=== PATIENT | male | born 1950 | race Caucasian/White ===

== ENCOUNTER 2019-03-03 17:31 | Inpatient (IN) | payer OTHER, MEDICARE ==
--- OUTSIDE RECORDS SUMMARY | 2019-03-03 17:33 | XMS REPORT | Clinical Summary ---
:1950 Author Organization [facility] Address [address] [place] [address] Care Team Providers Name Role Phone Adrian Groves MD Primary Care Provider Allergies Active Allergy Reactions Severity Noted Date Comments Codeine Rash Low 06/22/2016 Morphine Other (See Comments) 06/22/2016 hallucination Medications Medication Sig Dispensed Refills Start Date End Date Status multivitamin (THERAGRAN) Take 1 tablet by 0 Active tablet mouth daily. fluticasone-salmeterol Inhale 1 puff 2 0 Active (ADVAIR) 250-50 mcg/dose (two) times a DISKUS day. albuterol (PROVENTIL Inhale 2 puffs 4 0 Active HFA;VENTOLIN HFA) 90 (four) times a mcg/actuation inhaler day. As needed tiotropium (SPIRIVA) 18 Place 1 capsule 0 Active mcg per inhalation into inhaler and capsule inhale once daily. aspirin (ECOTRIN) 81 MG Take 81 mg by 0 Active enteric coated tablet mouth every other day. esomeprazole (NexIUM) 40 Take 40 mg by 0 Active MG capsule mouth daily before breakfast. metoprolol tartrate Take 100 mg by 0 Active (LOPRESSOR) 100 MG mouth daily. tablet atorvastatin (LIPITOR) Take 20 mg by 0 Active 20 MG tablet mouth nightly. amlodipine-benazepril Take 1 capsule 0 Active (LOTREL) 10-40 mg per by mouth daily. capsule allopurinol (ZYLOPRIM) Take 100 mg by 0 Active 100 MG tablet mouth daily. cyanocobalamin 1000 MCG Take 1,000 mcg 0 Active tablet by mouth daily. senna (SENOKOT) 8.6 mg Take 1 tablet by 0 Active tablet mouth daily. Active Problems Not on file Family History Medical History Relation Name Comments Heart disease Father Relation Name Status Comments Father Social History Tobacco Use Types Packs/Day Years Used Date Current Some Day Smoker Alcohol Use Drinks/Week oz/Week Comments No Sex Assigned at Date Recorded Not on file Job Start Date Occupation Industry Not on file Not on file Not on file Travel History Travel Start Travel End No recent travel history available. Last Filed Vital Signs Not on file Plan of Treatment Health Maintenance Due Date Last Done Comments COLON CANCER SCREENING 1998 SHINGLES VACCINES (#1) 1998 65+ PNEUMOCOCCAL VACCINE (1 of 2 - PCV13) 2013 PNEUMOCOCCAL POLYSACCHARIDE VACCINE AGE 65 AND OVER 2013 INFLUENZA VACCINE 05/23/2019 Results Not on fileafter 03/02/2018 Insurance Payer Benefit Plan / Group Subscriber ID Type Phone Address AARP AARP SUPPLEMENT xxxxxxxxxxx Commercial MEDICARE MEDICARE PART A AND B xxxxxxxxxx Medicare [place], [place] Advance Directives Patient has advance care planning documents on file. For more information, please contact:Reed [address] [place] [address]
[2019-03-03] MEDS ORDERED: IPRATROPIUM BROM 0.5MG/2.5ML ONE ×2 (18:06→18:09)
[2019-03-03] MEDS ORDERED: LEVALBUTEROL 1.25 MG/3 ML NEB ONE ×2 (18:06→18:09)
[2019-03-03] MEDS ORDERED: Levofloxacin500mg IV 500 MG/100 ML BAG IV ONE (18:09)
[2019-03-03] MEDS ORDERED: DEXAMETHASONE 10 MG/ML VIAL ONE (18:09)
[2019-03-03] MEDS ORDERED: METHYLPREDNISOLONE 125 MG INJ ONE (18:09)
[2019-03-03] MEDS ORDERED: NA CHLORIDE 0.9% 500 ML ONE (18:10)
[2019-03-03 18:11] LABS: Arterial Blood Carboxyhemoglob 2.1 % (0-1.5); Blood Gas Oxyhemoglobin 94.3 % (94-97)
[2019-03-03 18:24] LABS: Absolute Lymphocytes (CBC) 0.9 K/uL (0.7-4.9); Absolute Monocytes 1.2 K/uL (0.1-1.3); Absolute Neutrophil 21.3 K/uL (1.8-8.0); Basophils % 0.5 % (0-1.3); Eosinophils % 0.9 % (0-4.4); Hematocrit 46.5 % (39.6-49.0); Lymphocytes % 3.6 % (15.3-44.8); MPV 9.5 fL (7.6-11.3); Monocytes % 4.9 % (3.3-12.3); RBC Red Blood Cell Count 4.81 M/uL (4.33-5.43)
--- NOTE | 2019-03-03 18:43 | RAD REPORT ---
EXAM DESCRIPTION: [facility] Single View03/03/2019 6:05 pm CLINICAL HISTORY: sob COMPARISON: 2009 FINDINGS: Approximately 5 centimeter left apical lung opacity. Right suprahilar region mildly prominent. Heart is normal size Lungs are hyperaerated. Small radiopaque structures overlie the left chest IMPRESSION: Left apical lung opacity may represent neoplasm. Mild right suprahilar opacity may represent confluence of pulmonary vessels or infiltrate CT chest recommended
[2019-03-03 18:44] LABS: ALT/SGPT 33 U/L (12-78); AST/SGOT 21 U/L (15-37); Albumin 4.2 g/dL (3.4-5.0); Alkaline Phosphatase 82 U/L (45-117); BUN Blood Urea Nitrogen 9 mg/dL (7-18); Bicarbonate 27 mmol/L (21-32); Bilirubin Direct 0.2 mg/dL (0-0.2); Bilirubin Total 0.7 mg/dL (0.2-1.0); Glucose Level 125 mg/dL (74-106); Lipase 117 U/L (73-393); Magnesium 1.8 mg/dL (1.8-2.4); NT PRO-BNP 176 pg/mL (<125); Potassium 3.4 mmol/L (3.5-5.1); Protein, Total 8.1 g/dL (6.4-8.2); Sodium Level 134 mmol/L (136-145); Troponin (Emerg Dept Use Only) < 0.02 ng/mL (0.0-0.045)
[2019-03-03] MEDS ORDERED: CEFTRIAXONE/SWI 1gm 1 GM/10 ML SYR ONE (19:18)
--- NOTE | 2019-03-03 19:22 | ER ---
Nurse's Notes [facility] Name: Maximiliano Robison Age: 68 yrs Sex: Male : 1950 Arrival Date: 03/03/2019 Time: 17:32 Bed 3 Private MD: Chun Paulino K; Yung Allen V Diagnosis: Dyspnea;Chronic obstructive pulmonary disease with (acute) exacerbation;Tobacco abuse counseling;Tobacco use;Hypoxemia;Pneumonia due to other specified bacteria;Hypokalemia;Elevated white blood cell count Presentation: 03/03 17:43 Presenting complaint: Patient states: SOB and difficulty breathing that started today. aj Patient reports no relief with home O2. Transition of care: patient was not received from another setting of care. Onset of symptoms was March 03, 2019. Risk Assessment: Do you want to hurt yourself or someone else? Patient reports no desire to harm self or others. Initial Sepsis Screen: Does the patient meet any 2 criteria? RR > 20 per min. HR > 90 bpm. Yes Does the patient have a suspected source of infection? No. Patient's initial sepsis screen is negative. Care prior to arrival: None. 17:43 Method Of Arrival: Ambulatory aj 17:43 Acuity: STEPHANIA 2 aj Triage Assessment: 17:44 General: Appears in no apparent distress. uncomfortable, Behavior is anxious. Pain: aj Denies pain. Neuro: Level of Consciousness is awake, alert, obeys commands, Oriented to person, place, time, situation, Appropriate for age. Respiratory: Reports shortness of breath air hunger labored breathing Airway is patent Respiratory effort is labored, with nasal flaring, pursed lip, with retractions, Respiratory pattern is tachypnea Onset: The symptoms/episode began/occurred suddenly, the patient has severe shortness of breath. Derm: Skin is intact, is healthy with good turgor, Skin is pink, warm \T\ dry. normal. Historical: - Allergies: 17:44 Codeine; aj 17:44 Morphine; aj - PMHx: 17:44 Hyperlipidemia; Hypertension; COPD; aj 17:48 Cancer Prostate and colon; aj - Immunization history:: Adult Immunizations up to date. - Social history:: Smoking status: Patient uses tobacco products, smokes one-half pack cigarettes per day. - Ebola Screening: : Patient negative for fever greater than or equal to 101.5 degrees Fahrenheit, and additional compatible Ebola Virus Disease symptoms Patient denies exposure to infectious person Patient denies travel to an Ebola-affected area in the 21 days before illness onset No symptoms or risks identified at this time. - Family history:: not pertinent. Screenin:12 Abuse screen: Denies threats or abuse. Denies injuries from another. Nutritional mg2 screening: No deficits noted. Tuberculosis screening: No symptoms or risk factors identified. Fall Risk IV access (20 points). Assessment: 18:13 General: Appears in no apparent distress. comfortable, Behavior is calm, cooperative. mg2 Pain: Denies pain. Neuro: Level of Consciousness is awake, alert, obeys commands, Oriented to person, place, time, situation. Cardiovascular: Rhythm is. Respiratory: Airway is patent Respiratory effort is even, labored, Respiratory pattern is regular, symmetrical, Breath sounds with wheezes in left posterior lower lobe. GI: No signs and/or symptoms were reported involving the gastrointestinal system. : No signs and/or symptoms were reported regarding the genitourinary system. EENT: No signs and/or symptoms were reported regarding the EENT system. Derm: Skin is intact, is healthy with good turgor, Skin is pink, warm \T\ dry. normal. Musculoskeletal: Circulation, motion, and sensation intact. Capillary refill < 3 seconds. 19:53 Reassessment: BIPAP discontinued and started on Venturi mask. Patient states feeling jd3 better. Vital Signs: 17:44 BP 166 / 93; Pulse 120; Resp 50; Temp 98.6; Pulse Ox 83% on 2 lpm NC; Weight 104.33 kg; aj Height 5 ft. 10 in. (177.80 cm); 17:47 Pulse Ox 96% on 3.5 lpm NC; aj 19:30 BP 142 / 82; Pulse 115; Resp 40; Temp 98.5; Pulse Ox 96% on BiPAP; jd3 20:10 Pulse 112; Resp 28; Temp 98.8; Pulse Ox 96% on 50% Venturi mask; Pain 0/10; jd3 17:44 Body Mass Index 33.00 (104.33 kg, 177.80 cm) aj 17:44 Patient arrived on oxygen concentrator 2 LPM ED Course: 17:32 Patient arrived in ED. as 17:35 Yung Allen MD is Private Physician. as 17:35 Bar Paulino MD is Private Physician. as 17:35 Chun Paulino MD is Private Physician. as 17:37 Huan Morgan MD is Attending Physician. rachel 17:44 Triage completed. aj 17:47 Arm band placed on left wrist. Patient placed in an exam room, on a stretcher, on aj oxygen, on athletic monitor, on pulse oximetry. 17:59 Landen Monroy RN is Primary Nurse. mg2 18:05 XRAY Chest (1 view) In Process Unspecified. EDMS 18:11 No provider procedures requiring assistance completed. Inserted saline lock: 20 gauge mg2 in left wrist, using aseptic technique. Blood collected. 18:14 Patient has correct armband on for positive identification. athletic monitor on. Pulse mg2 ox on. NIBP on. Door closed. Warm blanket given. Pillow given. 18:40 Notified ED physician of a critical lab result(s). WBC 23.6. la1 19:19 Yung Allen MD is Hospitalizing Provider. rachel 19:56 CT completed. Patient tolerated procedure well. Patient moved to CT. Patient moved back mw3 from CT. 20:26 Patient admitted, IV remains in place. jd3 Administered Medications: 17:59 Drug: Xopenex 3.75 mg Route: Inhalation; mg2 20:20 Follow up: Response: No adverse reaction; Marked relief of symptoms jd3 17:59 Drug: AtroVENT Aerosol 0.5 mg Route: Inhalation; mg2 20:20 Follow up: Response: No adverse reaction; Marked relief of symptoms jd3 18:09 Drug: levofloxacin 500 mg Volume: 100 ml; Route: IVPB; Infused Over: 60 mins; Site: mg2 left wrist; 20:21 Follow up: Response: No adverse reaction; Marked relief of symptoms; IV Status: jd3 Completed infusion 18:10 Drug: NS 0.9% 500 ml Route: IV; Rate: bolus; Site: left wrist; mg2 20:21 Follow up: Response: No adverse reaction; IV Status: Completed infusion jd3 18:10 Drug: SOLU-Medrol 125 mg Route: IVP; Site: left wrist; mg2 19:03 Follow up: Response: No adverse reaction bp 18:10 Drug: Decadron - Dexamethasone 10 mg Route: IVP; Site: left wrist; mg2 19:03 Follow up: Response: No adverse reaction bp 19:10 Drug: Rocephin - (cefTRIAXone) 1 grams Route: IVPB; Infused Over: 30 mins; Site: left mg2 wrist; 20:19 Follow up: Response: No adverse reaction; IV Status: Completed infusion jd3 19:52 Drug: NS 0.9% with KCl 20 mEq/L 1000 ml Route: IV; Rate: 125 ml/hr; Site: left wrist; mg2 20:18 Follow up: Response: No adverse reaction; IV Status: Infusion continued upon admission jd3 19:53 Drug: Lovenox 90 mg Route: Sub-Q; Site: left lower abdomen; mg2 20:19 Follow up: Response: No adverse reaction jd3 19:53 Drug: Potassium Effervescent Tablet 25 mEq Route: PO; mg2 20:16 Follow up: Response: No adverse reaction jd3 Outcome: 19:21 Decision to Hospitalize by Provider. rachel 20:26 Admitted to Tele accompanied by tech, via stretcher, room 424, with oxygen, with chart, jd3 Report called to CHIDI Carrasquillo 20:26 Condition: stable 20:26 Instructed on the need for admit, Demonstrated understanding of instructions. 20:48 Patient left the ED. jd3 Signatures: Dispatcher [employer] EDMS Neetu Denney RN RN aj Anderson, Corey, MD MD cha Martinez, Amelia as Attema, Lee, RN RN Jose Sharpe RN RN jRhett Aceves RN RN bp Gardose, Michele, RN RN mg2 Tiarra Sanders mw3 Corrections: (The following items were deleted from the chart) 20:48 19:53 Reassessment: Patient states feeling better. mg2 jd3
--- NOTE | 2019-03-03 19:22 | EDPHYS ---
Physician Documentation [facility] Name: Maximiliano Robison Age: 68 yrs Sex: Male : 1950 Arrival Date: 03/03/2019 Time: 17:32 Bed 3 Private MD: Chun Paulino K; Yung Allen V ED Physician Huan Morgan HPI: 03/03 17:50 This 68 yrs old Male presents to ER via Ambulatory with complaints of rachel Shortness Of Breath. 17:50 The patient has shortness of breath at rest, with light activity. Onset: The rachel symptoms/episode began/occurred 1 day(s) ago. Duration: The symptoms are continuous, and are steadily getting worse. The patient's shortness of breath has no apparent modifying factors. Associated signs and symptoms: The patient has no apparent associated signs or symptoms. Severity of symptoms: At their worst the symptoms were mild moderate in the emergency department the symptoms are unchanged. The patient has experienced similar episodes in the past, multiple times. Historical: - Allergies: 17:44 Codeine; aj 17:44 Morphine; aj - PMHx: 17:44 Hyperlipidemia; Hypertension; COPD; aj 17:48 Cancer Prostate and colon; aj - Immunization history:: Adult Immunizations up to date. - Social history:: Smoking status: Patient uses tobacco products, smokes one-half pack cigarettes per day. - Ebola Screening: : Patient negative for fever greater than or equal to 101.5 degrees Fahrenheit, and additional compatible Ebola Virus Disease symptoms Patient denies exposure to infectious person Patient denies travel to an Ebola-affected area in the 21 days before illness onset No symptoms or risks identified at this time. - Family history:: not pertinent. ROS: 17:50 Constitutional: Negative for fever, chills, and weight loss, Eyes: Negative for injury, rachel pain, redness, and discharge, ENT: Negative for injury, pain, and discharge, Neck: Negative for injury, pain, and swelling, Cardiovascular: Negative for chest pain, palpitations, and edema, Abdomen/GI: Negative for abdominal pain, nausea, vomiting, diarrhea, and constipation, Back: Negative for injury and pain, : Negative for injury, bleeding, discharge, and swelling, MS/Extremity: Negative for injury and deformity, Skin: Negative for injury, rash, and discoloration, Neuro: Negative for headache, weakness, numbness, tingling, and seizure, Psych: Negative for depression, anxiety, suicide ideation, homicidal ideation, and hallucinations, Allergy/Immunology: Negative for hives, rash, and allergies, Endocrine: Negative for neck swelling, polydipsia, polyuria, polyphagia, and marked weight changes, Hematologic/Lymphatic: Negative for swollen nodes, abnormal bleeding, and unusual bruising. 17:50 Respiratory: Positive for cough, shortness of breath, wheezing, expiratory, of the left posterior lower lobe. Exam: 17:50 Constitutional: This is a well developed, well nourished patient who is awake, alert, rachel and in no acute distress. Head/Face: Normocephalic, atraumatic. Eyes: Pupils equal round and reactive to light, extra-ocular motions intact. Lids and lashes normal. Conjunctiva and sclera are non-icteric and not injected. Cornea within normal limits. Periorbital areas with no swelling, redness, or edema. ENT: Nares patent. No nasal discharge, no septal abnormalities noted. Tympanic membranes are normal and external auditory canals are clear. Oropharynx with no redness, swelling, or masses, exudates, or evidence of obstruction, uvula midline. Mucous membranes moist. Neck: Trachea midline, no thyromegaly or masses palpated, and no cervical lymphadenopathy. Supple, full range of motion without nuchal rigidity, or vertebral point tenderness. No Meningismus. Chest/axilla: Normal chest wall appearance and motion. Nontender with no deformity. No lesions are appreciated. Abdomen/GI: Soft, non-tender, with normal bowel sounds. No distension or tympany. No guarding or rebound. No evidence of tenderness throughout. Back: No spinal tenderness. No costovertebral tenderness. Full range of motion. Male : Normal genitalia with no discharge or lesions. Skin: Warm, dry with normal turgor. Normal color with no rashes, no lesions, and no evidence of cellulitis. MS/ Extremity: Pulses equal, no cyanosis. Neurovascular intact. Full, normal range of motion. Neuro: Awake and alert, GCS 15, oriented to person, place, time, and situation. Cranial nerves II-XII grossly intact. Motor strength 5/5 in all extremities. Sensory grossly intact. Cerebellar exam normal. Normal gait. Psych: Awake, alert, with orientation to person, place and time. Behavior, mood, and affect are within normal limits. 17:50 Cardiovascular: Rate: tachycardic, Rhythm: regular, Pulses: Pulses are 4+ in bilateral radial, brachial, femoral, popliteal, posterior tibial and and dorsalis pedis arteries.. Heart sounds: normal, Edema: is not appreciated, JVD: is not appreciated. Vital Signs: 17:44 BP 166 / 93; Pulse 120; Resp 50; Temp 98.6; Pulse Ox 83% on 2 lpm NC; Weight 104.33 kg; aj Height 5 ft. 10 in. (177.80 cm); 17:47 Pulse Ox 96% on 3.5 lpm NC; aj 19:30 BP 142 / 82; Pulse 115; Resp 40; Temp 98.5; Pulse Ox 96% on BiPAP; jd3 20:10 Pulse 112; Resp 28; Temp 98.8; Pulse Ox 96% on 50% Venturi mask; Pain 0/10; jd3 17:44 Body Mass Index 33.00 (104.33 kg, 177.80 cm) 17:44 Patient arrived on oxygen concentrator 2 LPM MDM: 17:37 Patient medically screened. [facility] 17:54 Data reviewed: vital signs, nurses notes, lab test result(s), EKG, radiologic studies, rachel plain films. 03/03 17:42 Order name: Basic Metabolic Panel; Complete Time: 18:45 [facility] 03/03 17:42 Order name: CBC with Diff; Complete Time: 20:32 [facility] 03/03 17:42 Order name: LFT's; Complete Time: 18:45 [facility] 03/03 17:42 Order name: Magnesium; Complete Time: 18:45 [facility] 03/03 17:42 Order name: NT PRO-BNP; Complete Time: 18:45 [facility] 03/03 17:42 Order name: PT-INR; Complete Time: 18:45 [facility] 03/03 17:42 Order name: Troponin (emerg Dept Use Only); Complete Time: 18:45 [facility] 03/03 17:42 Order name: Lipase; Complete Time: 18:45 [facility] 03/03 17:42 Order name: Influenza Screen (a \T\ B); Complete Time: 18:45 [facility] 03/03 17:58 Order name: ABG; Complete Time: 18:45 [facility] 03/03 19:05 Order name: Blood Culture Adult (2) bp 03/03 19:49 Order name: Urine Dipstick--Ancillary (enter results) mt 03/03 20:10 Order name: Urine Dipstick-Ancillary; Complete Time: 20:11 [facility] 03/03 20:13 Order name: CBC Smear Scan; Complete Time: 20:32 [facility] 03/03 17:42 Order name: XRAY Chest (1 view); Complete Time: 18:45 [facility] 03/03 17:42 Order name: EKG; Complete Time: 17:43 [facility] 03/03 17:46 Order name: BIPAP [facility] 03/03 19:18 Order name: CT Chest For PE Angio [facility] 03/03 19:26 Order name: CONS Physician Consult [facility] 03/03 20:13 Order name: CT [facility] 03/03 17:42 Order name: Cardiac monitoring; Complete Time: 18:11 [facility] 03/03 17:42 Order name: EKG - Nurse/Tech; Complete Time: 18:11 [facility] 03/03 17:42 Order name: IV Saline Lock; Complete Time: 18:11 [facility] 03/03 17:42 Order name: Labs collected and sent; Complete Time: 18:11 [facility] 03/03 17:42 Order name: O2 Per Protocol; Complete Time: 18:11 [facility] 03/03 17:42 Order name: O2 Sat Monitoring; Complete Time: 18:11 [facility] 03/03 17:42 Order name: Urine Dipstick-Ancillary (obtain specimen); Complete Time: 19:53 [facility] Administered Medications: 17:59 Drug: Xopenex 3.75 mg Route: Inhalation; mg2 20:20 Follow up: Response: No adverse reaction; Marked relief of symptoms jd3 17:59 Drug: AtroVENT Aerosol 0.5 mg Route: Inhalation; mg2 20:20 Follow up: Response: No adverse reaction; Marked relief of symptoms jd3 18:09 Drug: levofloxacin 500 mg Volume: 100 ml; Route: IVPB; Infused Over: 60 mins; Site: mg2 left wrist; 20:21 Follow up: Response: No adverse reaction; Marked relief of symptoms; IV Status: jd3 Completed infusion 18:10 Drug: NS 0.9% 500 ml Route: IV; Rate: bolus; Site: left wrist; mg2 20:21 Follow up: Response: No adverse reaction; IV Status: Completed infusion jd3 18:10 Drug: SOLU-Medrol 125 mg Route: IVP; Site: left wrist; mg2 19:03 Follow up: Response: No adverse reaction bp 18:10 Drug: Decadron - Dexamethasone 10 mg Route: IVP; Site: left wrist; mg2 19:03 Follow up: Response: No adverse reaction bp 19:10 Drug: Rocephin - (cefTRIAXone) 1 grams Route: IVPB; Infused Over: 30 mins; Site: left mg2 wrist; 20:19 Follow up: Response: No adverse reaction; IV Status: Completed infusion jd3 19:52 Drug: NS 0.9% with KCl 20 mEq/L 1000 ml Route: IV; Rate: 125 ml/hr; Site: left wrist; mg2 20:18 Follow up: Response: No adverse reaction; IV Status: Infusion continued upon admission jd3 19:53 Drug: Lovenox 90 mg Route: Sub-Q; Site: left lower abdomen; mg2 20:19 Follow up: Response: No adverse reaction jd3 19:53 Drug: Potassium Effervescent Tablet 25 mEq Route: PO; mg2 20:16 Follow up: Response: No adverse reaction jd3 Disposition: 03/03/19 19:21 Hospitalization ordered by Yung Allen for Inpatient Admission. Preliminary diagnosis are Dyspnea, Chronic obstructive pulmonary disease with (acute) exacerbation, Tobacco abuse counseling, Tobacco use, Hypoxemia, Pneumonia due to other specified bacteria, Hypokalemia, Elevated white blood cell count. - Bed requested for Telemetry/MedSurg (Inpatient). - Status is Inpatient Admission. jd3 - Condition is Fair. - Problem is new. - Symptoms have improved. UTI on Admission? No Signatures: Dispatcher [employer] Erica Lee RN RN dw Myers, Amanda, RN RN aj Anderson, Corey, MD MD cha Page, Corey, PA PA cp Davies, Jonathon, RN RN jd3 Gardose, Michele, RN RN mg2 Peltier, Brian RN bp Corrections: (The following items were deleted from the chart) 19:35 19:21 Hospitalization Ordered by Yung Allen MD for Inpatient Admission. Preliminary rachel diagnosis is Dyspnea; Chronic obstructive pulmonary disease with (acute) exacerbation; Tobacco abuse counseling; Tobacco use; Hypoxemia; Pneumonia due to other specified bacteria; Hypokalemia. Bed requested for Telemetry/MedSurg (Inpatient). Status is Inpatient Admission. Condition is Fair. Problem is new. Symptoms have improved. UTI on Admission? No. rachel 19:47 19:35 03/03/2019 19:21 Hospitalization Ordered by Yung Allen MD for Inpatient dw Admission. Preliminary diagnosis is Dyspnea; Chronic obstructive pulmonary disease with (acute) exacerbation; Tobacco abuse counseling; Tobacco use; Hypoxemia; Pneumonia due to other specified bacteria; Hypokalemia; Elevated white blood cell count. Bed requested for Telemetry/MedSurg (Inpatient). Status is Inpatient Admission. Condition is Fair. Problem is new. Symptoms have improved. UTI on Admission? No. rachel 20:48 19:47 03/03/2019 19:21 Hospitalization Ordered by Yung Allen MD for Inpatient jd3 Admission. Preliminary diagnosis is Dyspnea; Chronic obstructive pulmonary disease with (acute) exacerbation; Tobacco abuse counseling; Tobacco use; Hypoxemia; Pneumonia due to other specified bacteria; Hypokalemia; Elevated white blood cell count. Bed requested for Telemetry/MedSurg (Inpatient). Status is Inpatient Admission. Condition is Fair. Problem is new. Symptoms have improved. UTI on Admission? No. dw
[2019-03-03] MEDS ORDERED: POTASSIUM 25 MEQ EFFERV TAB ONE (19:47)
[2019-03-03] MEDS ORDERED: ENOXAPARIN 100 MG/ML SYR SQ ONE (19:48)
[2019-03-03] MEDS ORDERED: NS KCL 20MEQ 1,000 ML IV ONE (19:48)
[2019-03-03 20:10] LABS: Urine Blood TRACE (NEG); Urine Glucose NEGATIVE (NEG); Urine Protein 3+ (NEG); Urine Specific Gravity 1.025 (1.005-1.030)
[2019-03-03 20:12] LABS: Platelet Estimate ADEQ; Urine White Blood Cell Casts OK
[2019-03-03 20:13] LABS: Blood Morphology Comment NOT SEEN (NOT SEEN)
--- NOTE | 2019-03-03 20:13 | RAD REPORT ---
EXAM DESCRIPTION: CT - Chest For Pe Angio - 03/03/2019 7:57 pm CLINICAL HISTORY: sob COMPARISON: March 03 chest x-ray TECHNIQUE: Dynamically enhanced axial 3 mm thick images of the chest were obtained during administra tion of <100> mL Isovue 370 IV contrast. Coronal and oblique reconstruction images were generated and reviewed. Exam utilizes a protocol for optimal evaluation of pulmonary arterial tree. Maximum intensity projections 3D imaging was utilized All CT scans are performed using dose optimization technique as appropriate and may include automated exposure control or mA/KV adjustment according to patient size. FINDINGS: A pulmonary embolus is not seen. A thoracic aortic aneurysm is not noted. A 5 x 1.5 centimeter soft tissue structure is present within the right apical pleura. A pericardial effusion is not seen. Mild right lower lobe atelectasis. Mild right lower lobe infiltrate Bull[place] and blebs are scattered throughout the lungs. Small right adrenal adenoma IMPRESSION: Negative for a pulmonary embolism. 5 x 1.5 centimeter soft tissue structure within the right apical pleura may represent neoplasm . PET- CT scan recommended COPD Mild right lower lobe infiltrate
[2019-03-03] MEDS: NS KCL 20MEQ 20 MEQ/1,000 ML BAG IV SCH (21:07)
[2019-03-03] MEDS ORDERED: ONDANSETRON 4 MG/2 ML VIAL IV PRN (21:07)
[2019-03-03] MEDS ORDERED: ALBUTEROL 2.5 MG/3 ML NEB SOL NEB PRN (21:07)
[2019-03-03] MEDS ORDERED: IPRATROPIUM BROM 0.5MG/2.5ML NEB PRN (21:07)
[2019-03-03] MEDS: FAMOTIDINE 20 MG/2 ML VIAL IV SCH (21:45)
[2019-03-03 22:28] LABS: Urine Appearance CLEAR; Urine Bilirubin NEGATIVE (NEG); Urine Blood NEGATIVE (NEG); Urine Color YELLOW; Urine Glucose NEGATIVE (NEG); Urine Protein 1+ (NEG); Urine Specific Gravity 1.025 (1.005-1.030); Urine Urobilinogen 0.2 mg/dL (0.2-1.0)
[2019-03-03 22:32] LABS: Urine Microscopic Reflex ORDER UMIC
[2019-03-03 22:49] LABS: Urine Bacteria <20 /HPF (NONE SEEN); Urine Culture Reflex Order NOT NEEDED; Urine RBC <5 /HPF (NONE SEEN)
[2019-03-03] MEDS: METHYLPREDNISOLONE 40 MG INJ IV SCH (23:55)
[2019-03-04 02:37] LABS: Absolute Lymphocytes (CBC) 0.4 K/uL (0.7-4.9); Absolute Monocytes 0.2 K/uL (0.1-1.3); Absolute Neutrophil 16.9 K/uL (1.8-8.0); Hematocrit 42.3 % (39.6-49.0); Lymphocytes % 2.1 % (15.3-44.8); MPV 9.2 fL (7.6-11.3); Monocytes % 1.1 % (3.3-12.3)
[2019-03-04 02:40] LABS: Potassium 4.5 mmol/L (3.5-5.1)
[2019-03-04] MEDS: METHYLPREDNISOLONE 40 MG INJ IV SCH ×2 (05:33→11:35)
[2019-03-04] MEDS: NS KCL 20MEQ 20 MEQ/1,000 ML BAG IV SCH (05:33)
[2019-03-04] MEDS ORDERED: PANTOPRAZOLE 40MG TABLET PO SCH (07:00)
--- NOTE | 2019-03-04 07:32 | RAD REPORT ---
[facility] 6[facility]40 am CLINICAL HISTORY: Chest pain COMPARISON: March 03, 2019 FINDINGS: No change in the left apical opacity. Mild right basilar atelectasis unchanged. Lungs are hyperaerated. Heart is borderline enlarged
[2019-03-04] MEDS ORDERED: METFORMIN HCL 500 MG TAB PO SCH (08:00)
[2019-03-04] MEDS ORDERED: POTASSIUM 25 MEQ EFFERV TAB PO SCH (09:00)
[2019-03-04] MEDS ORDERED: CYANOCOBALAMIN 1,000 MCG TAB PO SCH (09:00)
[2019-03-04] MEDS ORDERED: METOPROLOL XL 100 MG TAB PO SCH (09:00)
[2019-03-04] MEDS ORDERED: ASPIRIN 81 MG CHEWABLE TABLET PO SCH (09:00)
[2019-03-04] MEDS ORDERED: CEFTRIAXONE/SWI 1gm 1 GM/10 ML SYR IV SCH (09:00)
[2019-03-04] MEDS ORDERED: LOSARTAN/HCTZ 50-12.5 PO SCH (09:00)
[2019-03-04] MEDS ORDERED: ASPIRIN EC 81 MG TAB PO SCH (09:00)
[2019-03-04] MEDS ORDERED: ENOXAPARIN 40 MG/0.4 ML SQ SCH (09:00)
[2019-03-04] MEDS ORDERED: ALLOPURINOL 100 MG TAB PO SCH (09:00)
[2019-03-04] MEDS ORDERED: ACIDOPH PARACASEI B LACTIS PO SCH (09:00)
[2019-03-04] MEDS ORDERED: HOME MED 1 EA UNK (Fluticasone/Umeclidin/Vilanter [Trelegy Ellipta 100-62.5-25] 1 PUFF) IH SCH (09:00)
[2019-03-04] MEDS ORDERED: CEFTRIAXONE 1 GM/NS 50 ML 1 GM/50 ML BAG IV SCH (09:00)
[2019-03-04] MEDS ORDERED: ACETAMINOPHEN 500 MG TAB PO SCH (09:00)
[2019-03-04] MEDS ORDERED: AMLODIPINE 10 MG TAB PO SCH (09:00)
--- NOTE | 2019-03-04 09:19 | EKG ---
Test Date: 2019-03-03 Test Time: 17:51:35 Criminology Teacher: MEAGHAN MEASUREMENT RESULTS: Intervals: Rate: 113 OK: 178 QRSD: 150 QT: 348 QTc: 477 [place]: P: 22 OK: 178 QRS: 86 T: 48 INTERPRETIVE STATEMENTS: Sinus tachycardia with frequent premature ventricular complexes Right bundle branch block Abnormal ECG Compared to ECG 04/29/2010 20:50:12 Ventricular premature complex(es) now present Sinus rhythm no longer present Electronically Signed On 03-04-19 09:19:09 CDT by Adan Escamilla
[2019-03-04] MEDS: FAMOTIDINE 20 MG/2 ML VIAL IV SCH (10:26)
[2019-03-04] MEDS: ARFORMOTEROL TARTRATE 15 MCG/2 ML VIAL.NEB NEB SCH ×2 (12:20→14:55)
--- NOTE | 2019-03-04 12:24 | P.CNS ---
Date of Consult: 03/04/19 Chief Complaint: Shortness of breath History of Present Illness: Patient is 68 years of age well known to me with a history of COPD active smoker became worse on Monday started complaining of dyspnea on mild exertion associations with cough. Patient is compliant with his bronchodilators at [facility] still continues to smoke has oxygen is feeling better he was scheduled to have a CT scan done of his lungs Allergies acetaminophen [From Vicodin] Allergy (Intermediate, Verified 03/03/19 21:05) Itching/Hives/Rash codeine [Codeine] Allergy (Intermediate, Verified 03/03/19 21:05) Hives/Rash hydrocodone bitartrate [From Vicodin] Allergy (Intermediate, Verified 03/03/19 21:05) Itching/Hives/Rash hydromorphone HCl [From Dilaudid] Allergy (Intermediate, Verified 03/03/19 21:05 ) Hives/Rash morphine Allergy (Intermediate, Verified 03/03/19 21:05) Hives/Rash Home Medications: Acetaminophen [Tylenol Extra Strength] 1,000 tab PO DAILY 03/03/19 Acetaminophen/Diphenhydramine [Tylenol Pm Ex-Strength Caplet] 1 tab PO BEDTIME 03/03/19 Albuterol Sulfate [Proair Respiclick] 2 puff IH Q6HP PRN 03/03/19 Allopurinol 1 tab PO DAILY 03/03/19 Amlodipine Besylate 1 tab PO DAILY 03/03/19 Aspirin [Harpreet Chewable Aspirin] 1 tab PO Q48H 03/03/19 Atorvastatin Calcium 1 tab PO BEDTIME 03/03/19 Cyanocobalamin (Vitamin B-12) [Vitamin B12] 1,000 mcg PO DAILY 03/03/19 Fluticasone/Umeclidin/Vilanter [Trelegy Ellipta 100-62.5-25] 1 puff IH DAILY 10/10 L.acidoph,Paracasei, B.lactis [Probiotic] 2 cap PO DAILY 03/03/19 Losartan/Hydrochlorothiazide [Losartan-Hctz 100-12.5 mg Tab] 1 tab PO DAILY 10/10 Metformin HCl 1 tab PO BID 03/03/19 Metoprolol Succinate [Toprol Xl] 1 tab PO DAILY 03/03/19 Mitochondrial Energry Booster 4 cap PO DAILY 03/03/19 Omeprazole [Prilosec] 1 cap PO DAILY 03/03/19 Turmeric Root Extract [Turmeric] 1 cap PO DAILY 03/03/19 Ipratropium Neb [Atrovent*] 0.5 mg NEB Q4H PRN amp 03/04/19 L.acidoph,Paracasei, B.lactis [Probiotic] 2 cap PO DAILY 03/04/19 levoFLOXacin [Levaquin*] 500 mg PO DAILY #14 tab 03/04/19 - Past Medical/Surgical History Diabetic: Yes -: Hyperlipidemia -: HTN -: COPD -: Colon Ca -: DM -: Colon Resection -: Lobotomy Left Upper Lung - Family History Mother Notes: Pancreatic CA Father Notes: Heart Failure Brother Notes: Liver Failure Sister Medical History: Diabetes Notes: Ovarian ca - Social History Smoking Status: Current every day smoker Alcohol use: No CD- Drugs: No Place of Residence: Home Review of Systems 10-point ROS is otherwise unremarkable General: Weakness Respiratory: Cough, Shortness of Breath Physical Examination Temp Pulse Resp BP Pulse Ox 97.8 F 104 H 16 176/89 H 94 03/04/19 12:00 03/04/19 12:00 03/04/19 12:00 03/04/19 12:00 03/04/19 12:00 General: Alert, In no apparent distress, Oriented x3 Respiratory: Expiratory wheezes Cardiovascular: No edema, Regular rate/rhythm, Normal S1 S2 Gastrointestinal: Normal bowel sounds, Soft and benign Musculoskeletal: No clubbing, No swelling Laboratory Data (last 24 hrs) 03/03/19 17:55: PT 11.8, INR 1.00 03/03/19 17:55: WBC 23.6 H*, Hgb 16.3, Hct 46.5, Plt Count 282 03/03/19 17:55: Sodium 134 L, Potassium 3.4 L, BUN 9, Creatinine 0.71, Glucose 125 H, Magnesium 1.8, Total Bilirubin 0.7, AST 21, ALT 33, Alkaline Phosphatase 82, Lipase 117 - Problems (1) COPD exacerbation Current Visit: Yes Status: Acute Plan: Patient is 68 years of age admitted with COPD exacerbation continue with bronchodilators and steroids as CT scan is abnormal he does have a left apical opacity beach is linear unusual for lung cancer he also has fibro apical emphysematous changes consistent with his COPD no evidence of thromboembolism patient's white count was significantly elevated is now declining patient's white count is elevated no evidence of pneumonia change to p.o. levofloxacin sputum cultures optimize bronchodilator treatments change to p.o. prednisone possible discharge tomorrow vital signs in oxygenation satisfactory patient has been console to stops smoking (2) Lung mass Current Visit: Yes Status: Acute Plan: Patient has a left apical usual linear pleural based mass unusual for like he was absent on is prior CT scan a very difficult to biopsy patient has a fibro emphysematous changes on CT scan will need a follow-up and schedule a PET scan as an outpatient
[2019-03-04] MEDS: IPRATROPIUM BROM 0.5MG/2.5ML NEB SCH ×2 (14:00→14:55)
--- NOTE | 2019-03-04 15:42 | EKG ---
Test Date: 2019-03-04 Test Time: 07:33:13 Counter Top Maker: YOGESH MEASUREMENT RESULTS: Intervals: Rate: 93 MT: 218 QRSD: 148 QT: 384 QTc: 477 [place]: P: 75 MT: 218 QRS: 63 T: 39 INTERPRETIVE STATEMENTS: Sinus rhythm with 1st degree AV block with occasional premature ventricular complexes Right bundle branch block Abnormal ECG Compared to ECG 03/03/2019 17:51:35 First degree AV block now present Sinus tachycardia no longer present Electronically Signed On 03-04-19 15:41:47 CDT by Adan Escamilla
--- NOTE | 2019-03-04 17:30 | P.SSS ---
Patient History Date of Service: 03/04/19 Reason for admission: Shortness of breath History of Present Illness: MR. BILL WAS STABLE UNTIL YESTEDAY AM, THEN BECAME DYSPNEIC. HE IS A LOT BETTER AFTER ABX, NEBS AND STEROIDS. HE WANTS TO GO HOME. HE FEELS WELL ENOUGH TO GO HOME. Allergies acetaminophen [From Vicodin] Allergy (Intermediate, Verified 03/03/19 21:05) Itching/Hives/Rash codeine [Codeine] Allergy (Intermediate, Verified 03/03/19 21:05) Hives/Rash hydrocodone bitartrate [From Vicodin] Allergy (Intermediate, Verified 03/03/19 21:05) Itching/Hives/Rash hydromorphone HCl [From Dilaudid] Allergy (Intermediate, Verified 03/03/19 21:05 ) Hives/Rash morphine Allergy (Intermediate, Verified 03/03/19 21:05) Hives/Rash Home Medications: Acetaminophen [Tylenol Extra Strength] 1,000 tab PO DAILY 03/03/19 Acetaminophen/Diphenhydramine [Tylenol Pm Ex-Strength Caplet] 1 tab PO BEDTIME 03/03/19 Albuterol Sulfate [Proair Respiclick] 2 puff IH Q6HP PRN 03/03/19 Allopurinol 1 tab PO DAILY 03/03/19 Amlodipine Besylate 1 tab PO DAILY 03/03/19 Aspirin [Harpreet Chewable Aspirin] 1 tab PO Q48H 03/03/19 Atorvastatin Calcium 1 tab PO BEDTIME 03/03/19 Cyanocobalamin (Vitamin B-12) [Vitamin B12] 1,000 mcg PO DAILY 03/03/19 Fluticasone/Umeclidin/Vilanter [Trelegy Ellipta 100-62.5-25] 1 puff IH DAILY 10/10 L.acidoph,Paracasei, B.lactis [Probiotic] 2 cap PO DAILY 03/03/19 Losartan/Hydrochlorothiazide [Losartan-Hctz 100-12.5 mg Tab] 1 tab PO DAILY 10/10 Metformin HCl 1 tab PO BID 03/03/19 Metoprolol Succinate [Toprol Xl] 1 tab PO DAILY 03/03/19 Mitochondrial Energry Booster 4 cap PO DAILY 03/03/19 Omeprazole [Prilosec] 1 cap PO DAILY 03/03/19 Turmeric Root Extract [Turmeric] 1 cap PO DAILY 03/03/19 levoFLOXacin [Levaquin*] 500 mg PO DAILY #14 tab 03/04/19 - Past Medical/Surgical History Has patient received pneumonia vaccine in the past: Yes Diabetic: Yes -: Hyperlipidemia -: HTN -: COPD -: Colon Ca -: DM -: Colon Resection -: Lobotomy Left Upper Lung - Family History Mother Notes: Pancreatic CA Father Notes: Heart Failure Brother Notes: Liver Failure Sister -: Diabetes Notes: Ovarian ca - Social History Smoking Status: Current every day smoker Alcohol use: No CD- Drugs: No Place of Residence: Home Review of Systems 10-point ROS is otherwise unremarkable Respiratory: Shortness of Breath Physical Examination - Vital Signs Temperature: 97.8 F Blood Pressure: 176/89 Pulse: 104 Respirations: 16 Pulse Ox (%): 94 - Physical Exam General: Oriented x3, Mild distress HEENT: Atraumatic, PERRLA, Mucous membr. moist/pink, EOMI, Sclerae nonicteric Neck: Supple, 2+ carotid pulse no bruit, No LAD, Without JVD or thyroid abnormality Respiratory: Diminished Cardiovascular: Regular rate/rhythm, Normal S1 S2 Gastrointestinal: Normal bowel sounds, No tenderness Musculoskeletal: No tenderness Integumentary: No rashes Neurological: Normal gait, Normal speech, Normal strength at 5/5 x4 extr, Normal tone, Normal affect Lymphatics: No axilla or inguinal lymphadenopathy - Studies Laboratory Data (last 24 hrs) 03/03/19 17:55: PT 11.8, INR 1.00 03/03/19 17:55: WBC 23.6 H*, Hgb 16.3, Hct 46.5, Plt Count 282 03/03/19 17:55: Sodium 134 L, Potassium 3.4 L, BUN 9, Creatinine 0.71, Glucose 125 H, Magnesium 1.8, Total Bilirubin 0.7, AST 21, ALT 33, Alkaline Phosphatase 82, Lipase 117 Microbiology Data (last 24 hrs): 03/03/19 17:55 Nasopharnyx Influenza Type A Antigen Screen - Final 03/03/19 17:55 Nasopharnyx Influenza Type B Antigen Screen - Final - Diagnosis (Problem(s)) (1) COPD exacerbation Status: Acute Plan: STABLE. HE WILL TAKE LEVAQUIN FOR ELEVATEDWBC COUNT WITH COPD. I ADVISED HIM TO STAY ONE MORE DAY BUT HE INSISTED IN GOING HOME HE IS BETTER. (2) Lung mass Status: Chronic Plan: DR. ODONNELL AND Renaldo VENTURA TO . HE SAYS HE HAS A LUNG SURGEON IN [facility]. - Disposition Disposition: ROUTINE DISCHARGE Patient Discharge Instructions: TAKE CT SCAN DISK TO Pedro VENTURA TO SHOW THE SHADOW IN [place]. 1- 5 CM.
[2019-03-04] MEDS ORDERED: Levofloxacin500mg IV 500 MG/100 ML BAG IV SCH (18:00)
[2019-03-04] MEDS ORDERED: predniSONE 20 MG TAB PO SCH (21:00)
[2019-03-04] MEDS ORDERED: ATORVASTATIN 20 MG TAB PO SCH (21:00)
[2019-03-05] MEDS ORDERED: LACTOBACILLUS/ACIDOPHILUS TAB PO SCH (09:00)
[2019-03-05] MEDS ORDERED: levoFLOXacin 750 MG TAB PO SCH (09:00)
== END 2019-03-04 14:44 | disposition home or self-care (01) | DRG 192 ==
LOC: ER 17:31 → ERHOLD 19:24 → 4TH 20:29
PROVIDERS: ADMIT Internal Medicine; ATTEND Internal Medicine
DX: J44.1 Chronic obstructive pulmonary disease with (acute) exacerbation (principal); R91.8 Other nonspecific abnormal finding of lung field; I10 Essential (primary) hypertension; E78.5 Hyperlipidemia, unspecified; E11.9 Type 2 diabetes mellitus without complications; Z85.038 Personal history of other malignant neoplasm of large intestine; F17.210 Nicotine dependence, cigarettes, uncomplicated; Z79.82 Long term (current) use of aspirin
CPT/HCPCS: 36415; 71045; 71275; 80048; 80076; 81003; 81015; 82805; 82962; 83605; 83690; 83735; 83880; 84484; 85025; 85610; 87040; 87804; 93005; 94660; 96365; 96367; 96372; 96375; 99285; J0696; J1100; J1650; J2920; J2930; J7605; Q9967

== ENCOUNTER 2023-04-06 06:30 | Day surgery (SDC) | payer OTHER, MEDICARE ==
--- NOTE | 2023-04-03 12:00 | EKG ---
Test Date: 2023-04-03 Test Time: 11:28:12 Ruching Machine Operator: TONI MEASUREMENT RESULTS: Intervals: Rate: 75 TN: 208 QRSD: 168 QT: 414 QTc: 462 [place]: P: 78 TN: 208 QRS: 82 T: 66 INTERPRETIVE STATEMENTS: Normal sinus rhythm Right bundle branch block Abnormal ECG Compared to ECG 03/04/2019 07:33:13 Ventricular premature complex(es) no longer present First degree AV block no longer present Electronically Signed On 04-03-23 12:00:08 CDT by Bhupinder Medina
[2023-04-03 12:13] LABS: Absolute Lymphocytes (CBC) 0.7 K/uL (0.7-4.9); Hematocrit 36.5 % (39.6-49.0); Lymphocytes % 7.8 % (15.3-44.8); MCV 89.3 fL (80-100); MPV 7.9 fL (7.6-11.3); RBC Red Blood Cell Count 4.09 M/uL (4.33-5.43)
[2023-04-03 12:16] LABS: Protime INR 1.03
--- NOTE | 2023-04-03 12:16 | RAD REPORT ---
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 COMPARISON: Chest Pa And Lat (2 Views) dated 04/14/2021; Chest Single View dated 03/04/2019; Chest Sin gle View dated 03/03/2019; CHEST SINGLE VIEW dated 05/25/2010 TECHNIQUE: PA and lateral views of the chest were obtained. FINDINGS: The lungs are hyperexpanded compatible with COPD. The heart is upper limit of normal in si ze. No fracture or aggressive bony process. IMPRESSION: COPD without acute process identified. The USPSTF recommends annual screening for lung cancer with low-dose CT (LDCT) in adults aged 50 to 80 years who have a 20 pack-year smoking history and currently smoke or have quit within the past 15 years.
[2023-04-03 12:22] LABS: Potassium 2.8 mEq/L (3.5-5.1)
[~2023-04-06 06:30] MED LIST: ATROPINE SULF 1 MG/10 ML SYR IV ONE; FENTANYL CITR 100 MCG/2 ML ONE; HEPA 1000U/500MLS 2,000 UNIT/1,000 ML BAG IV ONE; HEPARIN 10,000 UNIT/10 ML VIAL IV ONE; HEPARIN 5000 UNIT/ML 1 ML VIAL ONE; LIDOCAINE 1% 20 ML MDV ONE; MIDAZOLAM HCL 2 MG/2 ML INJ ONE; VERAPAMIL HCL 10 MG/4 ML VIAL IV ONE
[2023-04-06] MEDS ORDERED: NA CHLORIDE 0.9% 500 ML ONE (06:55)
[2023-04-06 10:10] VITALS: BP 162/78; O2SAT 99
--- NOTE | 2023-04-06 10:59 | OP ---
Date of Procedure: 04/06/2023 Surgeon: FAMILIA BROWNE Procedure Performed: Peripheral angiogram with runoff. Indication: Peripheral vascular disease. Access: Right radial artery 6-Lithuanian closed with TR band. Complications: None. Bleeding: Less than 20 mL. Anesthesia: Total sedation time was 25 minutes. Used fentanyl and Versed. Description Of Procedure: After risks, benefits, alternatives were explained, patient agreed to proc edure and signed informed formal consent. Patient was brought into the cardiac catheterization labor atory, prepped and draped in the usual sterile fashion. Then, I accessed right radial artery using p [facility] micropuncture kit, placed a 6-Lithuanian slender sheath and then took a long 4-Lithuanian pigtail ca theter, placed it in the distal aorta. This was done over the wire and then performed distal aortogr am with runoff and then removed the catheter and sheath, placed TR band with good hemostasis. Findings: 1.Distal aorta is widely patent. 2.Right lower extremity: There is a 30% proximal common iliac artery stenosis, then 60% in the righ t external iliac artery stenosis. Then the common femoral artery has about 40% stenosis focal. Prof unda is widely patent. The SFA has diffuse 30% to 40% stenosis, heavily calcified vessel and there i s a focal 60% distally and then below the knee, triple vessels are present with diffuse 30% to 40% st enosis. 3.The left lower extremity: The common iliac appears to be with luminal irregularities. The ruling machine feeder al iliac is with luminal irregularities as well as the common femoral artery. Profunda is widely pat ent and the SFA on the left has diffuse 40% stenosis, but proximally there is a focal 56% stenosis an d below the knee, there is diffuse disease involving the triple vessels ranging between 30% to 40% st enosis. Conclusion: Moderate and bilateral peripheral vascular disease, heavily calcified vessels. Recommendation: Medical management and close followup. SR/MODL Voice ID: [id number] Report ID: [id number]
== END 2023-04-06 10:11 | disposition home or self-care (01) ==
LOC: CCL 06:30
PROVIDERS: ATTEND Internal Medicine
DX: I70.223 Atherosclerosis of native arteries of extremities with rest pain, bilateral legs (principal); I25.10 Atherosclerotic heart disease of native coronary artery without angina pectoris; E78.5 Hyperlipidemia, unspecified; E11.9 Type 2 diabetes mellitus without complications; I10 Essential (primary) hypertension; K21.9 Gastro-esophageal reflux disease without esophagitis; G47.33 Obstructive sleep apnea (adult) (pediatric); I65.23 Occlusion and stenosis of bilateral carotid arteries; Z87.891 Personal history of nicotine dependence; Z85.038 Personal history of other malignant neoplasm of large intestine; Z88.5 Allergy status to narcotic agent; Z79.4 Long term (current) use of insulin
CPT/HCPCS: 93005; 85025; 80048; 36415; 85610; 85730; 71046; 36200; 75630; 76937; C1893; J1644; J2001; J2250; J3010; J7040; J0461

== ENCOUNTER 2024-01-09 10:55 | Observation (INO) | payer OTHER ==
[2024-01-09 11:32] VITALS: BMI 28.3
[2024-01-09] MEDS ORDERED: ALBUTEROL 2.5 MG/3 ML NEB SOL NEB PRN (11:55)
[2024-01-09] MEDS ORDERED: IPRATROPIUM BROM 0.5MG/2.5ML NEB PRN (11:55)
[2024-01-09] MEDS ORDERED: ACETAMINOPHEN 325 MG TABLET PO PRN (11:57)
[2024-01-09] MEDS ORDERED: ONDANSETRON 4 MG/2 ML VIAL IV PRN (11:58)
[2024-01-09] MEDS ORDERED: METHYLPREDNISOLONE 40 MG INJ ONE ×2 (12:49→17:08)
[2024-01-09] MEDS ORDERED: NACHLORIDE 0.45% 1,000 ML IV ONE (12:49)
[2024-01-09 12:50] LABS: Absolute Eosinophils 0.2 K/uL (0-0.5); Absolute Lymphocytes (CBC) 0.6 K/uL (0.7-4.9); Absolute Monocytes 0.7 K/uL (0.1-1.3); Absolute Neutrophil 6.2 K/uL (1.8-8.0); Basophils % 0.5 % (0-1.3); Eosinophils % 2.2 % (0-4.4); Hemoglobin 11.2 g/dL (13.6-17.9); Lymphocytes % 8.3 % (15.3-44.8); MCH 30.2 pg (27.0-35.0); MCHC 34.9 g/dL (32.0-36.0); MCV 86.4 fL (80-100); MPV 7.7 fL (7.6-11.3); Monocytes % 8.7 % (3.3-12.3); Neutrophils % 80.3 % (41.7-73.7); Nucleated Red Blood Cells % 0.1 % (0-0); Platelets 330 thou/uL (152-406); RBC Red Blood Cell Count 3.71 M/uL (4.33-5.43)
[2024-01-09] MEDS: NACHLORIDE 0.45% 1,000 ML IV SCH (12:53)
[2024-01-09] MEDS: METHYLPREDNISOLONE 40 MG INJ IV SCH (12:53)
[2024-01-09] MEDS ORDERED: ALBUTEROL 2.5 MG/3 ML NEB SOL NEB SCH (13:00)
[2024-01-09] MEDS ORDERED: IPRATROPIUM BROM 0.5MG/2.5ML NEB SCH (13:00)
[2024-01-09 13:03] LABS: Albumin 2.9 g/dL (3.4-5.0); Albumin/Globulin Ratio 0.8 (1.1-1.8); Anion Gap 9.4 mEq/L (5.0-15.0); Bilirubin Direct 0.2 mg/dL (0-0.2); Bilirubin Indirect, Calculated 0.3 mg/dL (0.2-0.8); Bilirubin Total 0.5 mg/dL (0.2-1.0); Globulin 3.6 g/dL (2.3-3.5); Magnesium 1.4 mg/dL (1.6-2.4); Phosphorus 3.8 mg/dL (2.5-4.9); Potassium 3.4 mEq/L (3.5-5.1); Protein, Total 6.5 g/dL (6.4-8.2)
[2024-01-09 13:05] LABS: Specific Gravity 1.009 (1.005-1.030); Urine Bilirubin NEGATIVE (Negative); Urine Blood Negative (Negative); Urine Clarity Clear (Clear); Urine Color Light-Yellow (Yellow); Urine Glucose NEGATIVE (Negative); Urine Ketones NEGATIVE (Negative); Urine Nitrite Negative (Negative); Urine Protein 1+ (Negative); Urine Urobilinogen Normal mg/dL (0.2-1.0); Urine pH 6.5 (5.0-7.0)
[2024-01-09 13:06] LABS: Urine Ascorbic Acid Negative (Negative); Urine Bacteria None Seen /HPF (<20); Urine Microscopic Reflex YN NO UMIC; Urine RBC <5 /HPF (None Seen); Urine WBC <5 /HPF (<5)
[2024-01-09 13:20] LABS: PT Prothrombin Time 12.3 SECONDS (9.5-12.5); PTT, Activated Partial Thromb 33.4 SECONDS (24.3-36.9); Protime INR 1.12
[2024-01-09] MEDS ORDERED: Magnesium Sulfate 2gm IVPB 2 G/50 ML BAG IV ONE (13:43)
[2024-01-09] MEDS ORDERED: POTASSIUM CL SA 10 MEQ TAB PO ONE (13:43)
[2024-01-09] MEDS: POTASSIUM CL SA 10 MEQ TAB PO ONE (13:44)
[2024-01-09] MEDS: Magnesium Sulfate 2gm IVPB 2 G/50 ML BAG IV ONE (13:44)
[2024-01-09 13:56] LABS: UR MICROALBUMIN 75.6 mg/dL (< 1.9)
--- NOTE | 2024-01-09 14:15 | RAD REPORT ---
EXAM DESCRIPTION: CT - Chest For Pe Angio - 01/09/2024 1:28 pm CLINICAL HISTORY: Chest pain. SOB, Fatigue COMPARISON: Lung Cancer Screening CT W/O dated 02/24/2020Lung Cancer Screening CT W/O dated 02/24/2020; Chest For Pe Angio dated 03/03/2019 TECHNIQUE: CT angiogram of the pulmonary arteries was performed with MIP. All CT scans are performed using dose optimization technique as appropriate and may include automated exposure control or mA/KV adjustment according to patient size. FINDINGS: No evidence of pulmonary thromboembolism. No acute aortic finding demonstrated. Aortic atherosclerosis. Moderate COPD. There are large irregular airspace opacities in both apices with large areas of cavita tion present, on the right this measures maximally 8 cm with slightly more inferior component measuri ng 5 cm. This is a somewhat atypical appearance for neoplasia but it cannot be completely excluded. I nfection including tuberculosis is possible particularly on the right. Bronchoscopy would be helpful for further evaluation. No significant pericardial or pleural fluid. No concerning bony finding. IMPRESSION: No evidence of pulmonary thromboembolism. Large irregular airspace opacities in both apices, greater on the right with internal cavitation as d etailed. Bronchoscopy would be helpful further evaluation of the right upper lobe lesion.
--- NOTE | 2024-01-09 16:04 | CON ---
Date of Consultation: 01/09/2024 Reason For Consultation: Shortness of breath. History Of Present Illness: This is a 73-year-old male who has history of COPD, was a smoker until a few years back, history of dyslipidemia, hypertension, diabetes, colon cancer, presented to the [facility] room with worsening shortness of breath with orthopnea and lower extremity edema. Denies havin g any active chest pain. Had a CT chest on admission. There was no PE. On echo, he has moderate di astolic dysfunction, was admitted and given Solu-Medrol and nebulizer treatments. He feels better. Denies having any chest pain at the present time. Actually when he is resting, he does not have any significant shortness of breath. His main problem is shortness of breath with minor activities. Past Medical History: As outlined above in the HPI. Medications: Refer reconciliation sheet for detailed list. Allergies: CODEINE, HYDROCODONE, ACETAMINOPHEN. Family History: No premature coronary artery disease. Social History: An ex-smoker. Does not drink, use any drugs. Review of Systems: All systems reviewed are negative except mentioned in HPI. Physical Examination: Vital Signs: Reviewed. Head and Neck: Pupils are equal, reactive to light. Intact eye movements. No cervical lymphadenopa thy. Neck is supple. Thyroid is not enlarged. Lungs: Decreased breathing sounds. Scattered wheezing. Heart: Regular. No extra sounds. Abdomen: Soft, nontender. Bowel sounds positive. No organomegaly. No masses or hernia. No rigidi ty or rebound. Extremities: No edema, clubbing, or cyanosis. Intact pulses. Skin: No rash. Neurologic: Alert, awake, oriented x3. No acute focal deficits appreciated. Investigations: BUN 12, creatinine 0.72. NT-proBNP is 1237. Potassium 3.4, sodium is 133. Hemoglo bin is 11.2. Assessment/recommendation: 1.Shortness of breath, probably combination of COPD exacerbation and on echo he has at least moderat e diastolic dysfunction. I recommend to challenge him with low-dose Lasix 20 mg IV q.12 hours and se e his response to it and of course ongoing treatment for COPD exacerbation. 2.COPD exacerbation, on appropriate therapy with steroids and bronchodilators. 3.Hypertension. Blood pressure is elevated with at least moderate diastolic dysfunction. Needs tig ht control of his blood pressure. Resume his home medications and adjust further as needed. Case wi ll be discussed with Dr. Allen. /VIKRAM Voice ID: [id number] Report ID: [id number]
[2024-01-09] MEDS: ASPIRIN 81 MG CHEWABLE TABLET PO SCH (22:31)
[2024-01-09] MEDS: AMLODIPINE 5 MG TAB PO ONE (22:31)
--- NOTE | 2024-01-10 07:24 | ECHO ---
HEIGHT: 5 ft 10 in WEIGHT: 197 lb 0 oz DATE OF STUDY: 01/09/[address]: Yung Allen MD 2-DIMENSIONAL: YES M.MODE: YES DOPPLER: YES COLOR FLOW: YES TDS: PORTABLE: YES DEFINITY: BUBBLE STUDY: DIAGNOSIS: FATIGUE/ CHRONIC OBSTRUCTIVE PULMONARY DISEASE/ CORNARY ARTERY DISEASE CARDIAC HISTORY: CATHERIZATION: SURGERY: PROSTHETIC VALVE: PACEMAKER: MEASUREMENTS (cm) DIASTOLIC (NORMALS) SYSTOLIC (NORMALS) IVSd 1.2 (0.6-1.2) LA Diam 4.3 (1.9-4.0) LVEF 63% LVIDd 4.0 (3.5-5.7) LVIDs 2.6 (2.0-3.5) %FS 33% LVPWd 1.3 (0.6-1.2) Ao Diam 3.0 (2.0-3.7) 2 DIMENSIONAL ASSESSMENT: RIGHT ATRIUM: NORMAL LEFT ATRIUM: ENLARGED RIGHT VENTRICLE: NORMAL LEFT VENTRICLE: NORMAL TRICUSPID VALVE: TRACE TRICUSPID REGURGITATION MITRAL VALVE: MILD MITRAL REGURGITATION PULMONIC VALVE: NORMAL AORTIC VALVE: NORMAL PERICARDIAL EFFUSION: NONE AORTIC ROOT: NORMAL LEFT VENTRICULAR WALL MOTION: NORMAL DOPPLER/COLOR FLOW: SEE BELOW COMMENTS: 1. NORMAL LEFT VENTRICULAR EJECTION FRACTION 55-60% WITH NORMAL WALL MOTION 2. MODERATE DIASTOLIC DYSFUNCTION (GRADE II) 3. LEFT ATRIAL ENLARGEMENT (MODERATE) 4. MILD MITRAL REGURGITATION TECHNOLOGIST: FABRICE VELASQUEZ
[2024-01-10 08:04] LABS: Albumin/Globulin Ratio 0.7 (1.1-1.8); Bilirubin Total 0.6 mg/dL (0.2-1.0); Globulin 4.1 g/dL (2.3-3.5); Magnesium 1.7 mg/dL (1.6-2.4); Phosphorus 3.3 mg/dL (2.5-4.9); Protein, Total 7.1 g/dL (6.4-8.2)
[2024-01-10] MEDS ORDERED: ACETAMINOPHEN 500 MG TAB PO SCH (09:00)
[2024-01-10] MEDS: [UNRECOGNIZED DRUG - OTHER] PO SCH (09:00)
[2024-01-10] MEDS: UMECLIDIN IH SCH (09:00)
[2024-01-10] MEDS: VILANTER IH SCH (09:00)
[2024-01-10] MEDS: FLUTICASONE IH SCH (09:00)
[2024-01-10] MEDS ORDERED: ACETAMINOPHEN 325 MG TABLET ONE (09:53)
[2024-01-10] MEDS ORDERED: PANTOPRAZOLE 40MG TABLET PO ONE (09:53)
[2024-01-10] MEDS ORDERED: AMLODIPINE 10 MG TAB ONE (09:53)
[2024-01-10] MEDS: PANTOPRAZOLE 40MG TABLET PO SCH (09:54)
[2024-01-10] MEDS: allopurinoL 100 MG TAB PO SCH (09:54)
[2024-01-10] MEDS: METOPROLOL XL 100 MG TAB PO SCH (09:54)
[2024-01-10] MEDS: VALSARTAN 160 MG TAB PO SCH (09:54)
[2024-01-10] MEDS: AMLODIPINE 10 MG TAB PO SCH (09:54)
[2024-01-10] MEDS: CYANOCOBALAMIN 1,000 MCG TAB PO SCH (09:55)
[2024-01-10 10:45] VITALS: O2SAT 96
[2024-01-10 11:46] VITALS: BP 168/54; TEMP 98.4
--- NOTE | 2024-01-10 12:03 | P.CNS ---
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 with biopsy was also had a lobectomy on the left side denies any fever chills chest pain Allergies acetaminophen [From Vicodin] Allergy (Intermediate, Verified 04/03/23 11:03) Itching/Hives/Rash codeine [Codeine] Allergy (Intermediate, Verified 04/03/23 11:03) Hives/Rash hydrocodone bitartrate [From Vicodin] Allergy (Intermediate, Verified 04/03/23 11:03) Itching/Hives/Rash hydromorphone HCl [From Dilaudid] Allergy (Intermediate, Verified 04/03/23 11:03) Hives/Rash morphine Allergy (Intermediate, Verified 04/03/23 11:03) Hives/Rash Home Medications: Acetaminophen [Tylenol Extra Strength] 1,000 tab PO DAILY 03/03/19 Acetaminophen/Diphenhydramine [Tylenol Pm Ex-Strength Caplet] 1 tab PO BEDTIME 03/03/19 Albuterol Sulfate [Proair Respiclick] 2 puff IH Q6HP PRN 03/03/19 Amlodipine Besylate 1 tab PO DAILY 03/03/19 Aspirin [Harpreet Chewable Aspirin] 1 tab PO Q48H 03/03/19 Atorvastatin Calcium 1 tab PO BEDTIME 03/03/19 Cyanocobalamin (Vitamin B-12) [Vitamin B12] 1,000 mcg PO DAILY 03/03/19 Fluticasone/Umeclidin/Vilanter [Trelegy Ellipta 100-62.5-25] 1 puff IH DAILY 03/03/19 Metoprolol Succinate [Toprol Xl] 1 tab PO DAILY 03/03/19 Mitochondrial Energry Booster 4 cap PO DAILY 03/03/19 Omeprazole [Prilosec] 1 cap PO DAILY 03/03/19 allopurinoL [Allopurinol] 1 tab PO DAILY 03/03/19 Furosemide 20 mg PO DAILY #90 01/10/24 Spironolactone 25 mg PO DAILY #90 01/10/24 - Past Medical/Surgical History Diabetic: Yes -: Hyperlipidemia -: HTN -: COPD -: Colon Ca -: DM -: Colon Resection -: Lobotomy Left Upper Lung - Family History Mother Notes: Pancreatic CA Father Notes: Heart Failure Brother Notes: liver failure Sister Medical History: Diabetes Notes: ovarian ca - Social History Smoking Status: Current every day smoker Alcohol use: No CD- Drugs: No Caffeine use: Yes Place of Residence: Home Review of Systems 10-point ROS is otherwise unremarkable General: Weakness Respiratory: Shortness of Breath Physical Examination Temp Pulse Resp BP Pulse Ox 98.4 F 95 H 19 168/54 H 99 01/10/24 07:00 01/10/24 11:00 01/10/24 11:00 01/10/24 11:00 01/10/24 11:00 General: Alert, In no apparent distress, Oriented x3 HEENT: Atraumatic Neck: Supple Respiratory: Clear to auscultation bilaterally, Diminished Cardiovascular: No edema, Regular rate/rhythm, Normal S1 S2 Gastrointestinal: Normal bowel sounds, Soft and benign Laboratory Data (last 24 hrs) 01/10/24 01/09/24 01/09/24 07:36 12:05 12:05 WBC Hgb Hct Plt Count PT 12.3 INR 1.12 APTT 33.4 Cancelled Sodium 133 L Potassium 4.0 D BUN 10 Creatinine 0.71 Glucose 165 H Phosphorus 3.3 Magnesium 1.7 Total Bilirubin 0.6 AST 15 ALT 19 Alkaline Phosphatase 103 01/09/24 01/09/24 12:05 12:05 WBC 7.70 Hgb 11.2 L Hct 32.0 L Plt Count 330 PT INR APTT Sodium 133 L Potassium 3.4 L BUN 12 Creatinine 0.72 Glucose 104 Phosphorus 3.8 Magnesium 1.4 L Total Bilirubin 0.5 AST 14 L ALT 19 Alkaline Phosphatase 92 - Problems (1) COPD exacerbation Current Visit: No Status: Acute Plan: Patient is 73 years of age admitted with COPD exacerbation currently doing better he does take Breztri at home patient has a history of significant tobacco abuse the scan is very abnormal he does have and a large opacity in the right upper lobe sure if that was present before is a new diagnosis in any case a disc has been provided to the patient [facility] needs to follow-up for that continue with steroids doubt any infectious cause currently he is stable blood pressure is mildly elevated oxygenation satisfactory we will discharge home on p.o.'s steroids for now chemistries reviewed patient to follow-up at [facility]
[2024-01-10] MEDS ORDERED: ATORVASTATIN 20 MG TAB PO SCH (21:00)
--- NOTE | 2024-01-10 21:48 | P.DS ---
Admission Date: 01/09/24 Discharge Date: 01/10/24 Disposition: ROUTINE DISCHARGE Reason for Admission: Shortness of breath Hospital Course: RANI HAS WORSENING OF DYSPNEA. HE HAS SEVERE COPD. HE GOES TO [facility]. HE HAS HAD APICAL PULMONARY LESIONS IN PAST DIAGNOSED TO BE FROM FUNGAL INFECTION BY [facility]. HE WILL CONTACT THE DOCTORS IN [facility] THESE LESIONS ARE LARGER NOW. HE IS STABLE WITH GUARDED PROGNOSIS. I CALLED IN [facility] emereJACQUIE FOR HIM. HIS BNP IS HIGH BUT THERE NO SIGN OF CHF ON CT SCAN. Vital Signs/Physical Exam: Temp Pulse Resp BP Pulse Ox 98.4 F 95 H 19 168/54 H 99 01/10/24 07:00 01/10/24 11:00 01/10/24 11:00 01/10/24 11:00 01/10/24 11:00 General: Mild distress HEENT: Atraumatic, PERRLA, EOMI Neck: Supple, JVD not distended Respiratory: Clear to auscultation bilaterally, Normal air movement Cardiovascular: Regular rate/rhythm, Normal S1 S2 Gastrointestinal: Normal bowel sounds, No tenderness Musculoskeletal: No tenderness Integumentary: No rashes Neurological: Normal speech, Normal tone, Normal affect Lymphatics: No axilla or inguinal lymphadenopathy Laboratory Data at Discharge: WBC 7.70 thou/uL (4.3-10.9) 01/09/24 12:05 Hgb 11.2 g/dL (13.6-17.9) L 01/09/24 12:05 Hct 32.0 % (39.6-49.0) L 01/09/24 12:05 Plt Count 330 thou/uL (152-406) 01/09/24 12:05 PT 12.3 SECONDS (9.5-12.5) 01/09/24 12:05 INR 1.12 01/09/24 12:05 APTT 33.4 SECONDS (24.3-36.9) 01/09/24 12:05 APTT Cancelled 01/09/24 12:05 Sodium 133 mEq/L (136-145) L 01/10/24 07:36 Potassium 4.0 mEq/L (3.5-5.1) D 01/10/24 07:36 BUN 10 mg/dL (7-18) 01/10/24 07:36 Creatinine 0.71 mg/dL (0.70-1.30) 01/10/24 07:36 Glucose 165 mg/dL (74-106) H 01/10/24 07:36 Phosphorus 3.3 mg/dL (2.5-4.9) 01/10/24 07:36 Magnesium 1.7 mg/dL (1.6-2.4) 01/10/24 07:36 Total Bilirubin 0.6 mg/dL (0.2-1.0) 01/10/24 07:36 AST 15 U/L (15-37) 01/10/24 07:36 ALT 19 U/L (16-61) 01/10/24 07:36 Alkaline Phosphatase 103 U/L (45-117) 01/10/24 07:36 Home Medications: Acetaminophen [Tylenol Extra Strength] 1,000 tab PO DAILY 03/03/19 Acetaminophen/Diphenhydramine [Tylenol Pm Ex-Strength Caplet] 1 tab PO BEDTIME 03/03/19 Albuterol Sulfate [Proair Respiclick] 2 puff IH Q6HP PRN 03/03/19 Amlodipine Besylate 1 tab PO DAILY 03/03/19 Aspirin [Harpreet Chewable Aspirin] 1 tab PO Q48H 03/03/19 Atorvastatin Calcium 1 tab PO BEDTIME 03/03/19 Cyanocobalamin (Vitamin B-12) [Vitamin B12] 1,000 mcg PO DAILY 03/03/19 Fluticasone/Umeclidin/Vilanter [Trelegy Ellipta 100-62.5-25] 1 puff IH DAILY 03/03/19 Metoprolol Succinate [Toprol Xl] 1 tab PO DAILY 03/03/19 Mitochondrial Energry Booster 4 cap PO DAILY 03/03/19 Omeprazole [Prilosec] 1 cap PO DAILY 03/03/19 allopurinoL [Allopurinol] 1 tab PO DAILY 03/03/19 Furosemide 20 mg PO DAILY #90 01/10/24 Spironolactone 25 mg PO DAILY #90 01/10/24 New Medications: Furosemide 20 mg PO DAILY #90 Spironolactone 25 mg PO DAILY #90
== END 2024-01-10 11:20 | disposition home or self-care (01) ==
LOC: 3RD-ICU 10:55
PROVIDERS: ADMIT Internal Medicine; ATTEND Internal Medicine
DX: J44.1 Chronic obstructive pulmonary disease with (acute) exacerbation (principal); I10 Essential (primary) hypertension; R60.9 Edema, unspecified; E11.9 Type 2 diabetes mellitus without complications; Z85.038 Personal history of other malignant neoplasm of large intestine; Z87.891 Personal history of nicotine dependence; Z88.5 Allergy status to narcotic agent; Z88.6 Allergy status to analgesic agent
CPT/HCPCS: 93306; 87040; 85025; 36415; 83735 ×2; 84100 ×2; 85610; 85379; 85730; 82652; 81003; 82248; 83036; 82570; 82607; 80053 ×2; 83880; 82043; 71275; Q9967; J3475; J2920 ×4; G0378; G0379

== ENCOUNTER 2024-05-28 15:43 | Inpatient (IN) | payer OTHER, MEDICARE ==
[2024-05-28] MEDS ORDERED: MAGNESIUM SULFATE 1 gm IVPB 1 GM/100 ML BAG IV ONE (16:30)
[2024-05-28 16:48] LABS: Absolute Lymphocytes (CBC) 0.4 K/uL (0.7-4.9); Absolute Monocytes 0.5 K/uL (0.1-1.3); Absolute Neutrophil 8.2 K/uL (1.8-8.0); Basophils % 0.2 % (0-1.3); Eosinophils % 0.5 % (0-4.4); Hematocrit 31.9 % (39.6-49.0); Hemoglobin 10.7 g/dL (13.6-17.9); Lymphocytes % 4.6 % (15.3-44.8); MCHC 33.5 g/dL (32.0-36.0); MCV 86.6 fL (80-100); MPV 8.4 fL (7.6-11.3); Monocytes % 5.4 % (3.3-12.3); Neutrophils % 89.3 % (41.7-73.7); Nucleated Red Blood Cells % 0.1 % (0-0); Platelets 264 thou/uL (152-406); RBC Red Blood Cell Count 3.68 M/uL (4.33-5.43); Red Cell Distribution Width 16.3 % (12.1-15.2)
[2024-05-28 17:40] LABS: SARS-CoV-2 Antigen CONTROL BLUE LINE VIS/BG OK; SARS-CoV-2 Antigen Rapid Res Negative (Negative)
[2024-05-28 17:52] LABS: Albumin 2.3 g/dL (3.4-5.0); Albumin/Globulin Ratio 0.5 (1.1-1.8); Anion Gap 11.7 mEq/L (5.0-15.0); Bilirubin Total 0.6 mg/dL (0.2-1.0); Globulin 4.2 g/dL (2.3-3.5); Potassium 2.7 mEq/L (3.5-5.1); Protein, Total 6.5 g/dL (6.4-8.2); Troponin High Sensitivity 20.6 pg/mL (<58.9)
[2024-05-28] MEDS ORDERED: POTASSIUM CL SA 10 MEQ TAB PO ONE (18:38)
--- NOTE | 2024-05-28 18:42 | RAD REPORT ---
EXAM DESCRIPTION: RAD - Chest Single View - 05/28/2024 6:20 pm CLINICAL HISTORY: DYSPNEA COMPARISON: Chest Pa And Lat (2 Views) dated 04/03/2023; Chest Pa And Lat (2 Views) dated 04/14/2021; Chest Single View dated 03/04/2019; Chest Single View dated 03/03/2019; Chest For Pe Angio dated 024 FINDINGS: Lines: None. Lungs: Coarse interstitial lung markings with reticular opacities. Apical scarring and/or cavitation as was seen on the prior CT. Pleural: No significant pleural effusions or pneumothorax. Cardiac: Cardiomegaly. Mediastinum: Within normal limits. Bones: No acute fractures. Other: None IMPRESSION: Coarsened lung markings with with reticulonodular airspace disease in the right lung con cerning for pneumonia. Chronic apical scarring and cavitation.
[2024-05-28] MEDS ORDERED: AZITHROMYCIN 500 MG INJ IVPB ONE (18:56)
[2024-05-28] MEDS ORDERED: CEFTRIAXONE 1000 MG/VIAL ONE (18:56)
[2024-05-28] MEDS ORDERED: NA CHLORIDE 0.9% 250 ML ONE (18:57)
--- NOTE | 2024-05-28 18:57 | ER ---
Nurse's Notes [facility] Name: Maximiliano Robison Age: 73 yrs Sex: Male : 1950 Arrival Date: 05/28/2024 Time: 15:43 Bed 19 Private MD: Diagnosis: Pneumonia, unspecified organism;Influenza due to identified novel influenza A virus-B;Hypoxia;Hypokalemia Presentation: 05/28 15:56 Chief complaint: Patient states: Shortness of breath since Monday. "I was doing HE nj1 MAN stuff" that day. Coronavirus screen: Vaccine status: Patient reports receiving the 2nd dose of the covid vaccine. Ebola Screen: Patient denies travel to an Ebola-affected area in the 21 days before illness onset. Initial Sepsis Screen: Does the patient meet any 2 criteria? No. Patient's initial sepsis screen is negative. Does the patient have a suspected source of infection? No. Patient's initial sepsis screen is negative. Risk Assessment: Do you want to hurt yourself or someone else? Patient reports no desire to harm self or others. Onset of symptoms was May 25, 2024. 15:56 Method Of Arrival: Ambulatory [facility] 15:56 Acuity: STEPHANIA 3 nj1 Triage Assessment: 16:45 General: Appears in no apparent distress. Behavior is calm, cooperative. Pain: Denies kj2 pain. Neuro: Level of Consciousness is awake, alert. Cardiovascular: Capillary refill < 3 seconds Patient's skin is warm and dry. Respiratory: Onset: The symptoms/episode began/occurred. Respiratory: Reports shortness of breath at rest. Respiratory: the patient has moderate shortness of breath. GI: No deficits noted. : No deficits noted. Historical: - Allergies: 16:00 Codeine; nj1 16:00 Morphine; nj1 - PMHx: 16:00 Cancer Prostate and colon; COPD; Hyperlipidemia; Hypertension; Congestive heart failure;nj1 - Immunization history:: Client reports receiving the 2nd dose of the Covid vaccine. - Infectious Disease History:: Denies. - Social history:: Smoking status: Smoking status: Patient/guardian denies using tobacco, the patient reports quitting approximately 5 years ago. Screenin:44 [facility] ED Fall Risk Assessment (Adult) History of falling in the last 3 months, kj2 including since admission No falls in past 3 months (0 pts) Confusion or Disorientation No (0 pts) Intoxicated or Sedated No (0 pts) Impaired Gait No (0 pts) Mobility Assist Device Used No (0 pt) Altered Elimination No (0 pt) Score/Fall Risk Level 0 - 2 = Low Risk Maintained a safe environment, Educated pt \\T\\ family on fall prevention, incl call for assistance when getting out of bed, Hourly rounding (assess needs \\T\\ fall precautionary measures) done. Abuse screen: Denies threats or abuse. Denies injuries from another. Nutritional screening: No deficits noted. Tuberculosis screening: No symptoms or risk factors identified. Assessment: 16:33 General: Appears in no apparent distress. Behavior is calm. Pain: Denies pain. Neuro: kj2 Level of Consciousness is awake, alert, Oriented to person, place, time, situation. Cardiovascular: Capillary refill < 3 seconds Patient's skin is warm and dry. Cardiovascular: Rhythm is. Respiratory: Airway is patent Respiratory effort is unlabored. GI: No deficits noted. : No deficits noted. Vital Signs: 15:56 BP 144 / 72; Pulse 84; Resp 20; Temp 97.9(O); Pulse Ox 86% on R/A; Weight 89.81 kg; nj1 Height 5 ft. 10 in. ; 16:36 BP 139 / 65; Pulse 96; Resp 24; Pulse Ox 94% on 4 lpm NC; mb9 17:56 BP 145 / 78; Pulse 93; Resp 20; Pulse Ox 92% on 3 lpm NC; mb9 15:56 Body Mass Index 28.41 (89.81 kg, 177.8 cm) nj1 ED Course: 15:47 Patient arrived in ED. im 15:54 Eva Altman FNP-C is PHCP. kb 15:54 James Jacobo MD is Attending Physician. kb 16:00 Triage completed. nj1 16:00 Arm band placed on right wrist. nj1 16:07 Jovita Arango, CHIDI is Primary Nurse. kj2 16:33 EKG done, by ED staff, reviewed by Eva TABOR. Inserted saline lock: 20 mb9 gauge in left forearm, using aseptic technique. Blood collected. Flushed with 10 mL NS. 16:35 No provider procedures requiring assistance completed. Inserted saline lock: 20 gauge kj2 in right wrist, using aseptic technique. 16:40 Placed in gown. Bed in low position. Call light in reach. Side rails up X 1. Provided mb9 Education on: press call light if needing anything. Client placed on continuous cardiac and pulse oximetry monitoring. NIBP monitoring applied. court recording monitor on. 18:22 Chest Single View XRAY In Process Unspecified. EDMS 18:56 Yung Allen MD is Hospitalizing Provider. kb 19:48 Patient admitted, IV remains in place. mb9 Administered Medications: 16:44 Drug: Magnesium Sulfate IVPB 1 grams IVPB once over 1 hrs Route: IVPB; Infused Over: 1 kj2 hrs; Site: right wrist; 17:57 Follow up: Response: No adverse reaction; IV Status: Completed infusion mb9 18:40 Drug: Potassium Chloride PO 40 mEq PO once Route: PO; kj2 18:53 Follow up: Response: No adverse reaction kj2 18:54 CANCELLED (Physician Discretion): rocephin1 grams IV at calculated rate once; Given kb slow IV push per pharmacy instructions 18:55 CANCELLED (Physician Discretion): [id number] mg IVPB once over 1 hrs; mix in 250 mL NSkb 19:38 Drug: levofloxacin IVPB 500 mg 100 ml IVPB once over 60 mins Volume: 100 ml; Route: kj2 IVPB; Infused Over: 60 mins; Site: left forearm; 19:38 Drug: Oseltamivir PO 75 mg PO once Route: PO; kj2 19:38 Drug: D5-1/2 NS IV 50 ml IV at ml/hr continuous Route: IV; Rate: ml/hr; Site: left kj2 forearm; Medication: 16:45 VIS not applicable for this client. kj2 Outcome: 18:57 Decision to Hospitalize by Provider. kb 20:56 Admitted to Med/surg accompanied by tech, via stretcher, with oxygen, with chart, mb9 20:56 Condition: stable 20:56 Instructed on the need for admit, 20:57 Patient left the ED. mb9 Signatures: Dispatcher [employer] EDMS Eva Altman, SHARONA MAGANA-Gi Dawn RN RN mb9 Lorenza Freedman RN RN nj1 Nicki Rubin Krystal RN RN kj2 Corrections: (The following items were deleted from the chart) 16:33 16:33 EKG done, by ED staff, reviewed by Jovita Arango RN mb9 mb9 16:40 16:36 BP 139 / 65; Pulse 96bpm; kj2 mb9
--- NOTE | 2024-05-28 18:57 | EDPHYS ---
Physician Documentation [facility] Name: Maximiliano Robison Age: 73 yrs Sex: Male : 1950 Arrival Date: 05/28/2024 Time: 15:43 Bed 19 Private MD: ED Physician James Jacobo HPI: 05/28 18:59 This 73 yrs old Male presents to ER via Ambulatory with complaints of Shortness Of kb Breath. 18:59 Pt is a 73 year old male who presents for shortness of breath that started 3 days ago. kb Reports chills today. states pt had a follow up with MD Morgan today for surveillance testing and he was unable to walk around due to shortness of breath. States she had to wheel him around in a chair and he has never had to have that done before. . Historical: - Allergies: 16:00 Codeine; nj1 16:00 Morphine; nj1 - PMHx: 16:00 Cancer Prostate and colon; COPD; Hyperlipidemia; Hypertension; Congestive heart failure;nj1 - Immunization history:: Client reports receiving the 2nd dose of the Covid vaccine. - Infectious Disease History:: Denies. - Social history:: Smoking status: Smoking status: Patient/guardian denies using tobacco, the patient reports quitting approximately 5 years ago. ROS: 18:58 Constitutional: As per HPI kb Exam: 17:07 ECG was reviewed by the Attending Physician. kb 18:58 Constitutional: This is a well developed, well nourished patient who is awake, alert, kb and in no acute distress. Head/Face: Normocephalic, atraumatic. ENT: Moist Mucous membranes Cardiovascular: Regular rate Abdomen/GI: Soft, non-tender. No distention Skin: Warm, dry with normal turgor. Normal color. MS/ Extremity: Pulses equal, no cyanosis. Neurovascular intact. Full, normal range of motion. Neuro: Awake and alert, GCS 15, oriented to person, place, time, and situation. Moves all extremities. Normal gait. 18:58 Respiratory: the patient does not display signs of respiratory distress, Respirations: labored breathing, that is mild, Breath sounds: are clear throughout, Vital Signs: 15:56 BP 144 / 72; Pulse 84; Resp 20; Temp 97.9(O); Pulse Ox 86% on R/A; Weight 89.81 kg; nj1 Height 5 ft. 10 in. ; 16:36 BP 139 / 65; Pulse 96; Resp 24; Pulse Ox 94% on 4 lpm NC; mb9 17:56 BP 145 / 78; Pulse 93; Resp 20; Pulse Ox 92% on 3 lpm NC; mb9 15:56 Body Mass Index 28.41 (89.81 kg, 177.8 cm) nj1 MDM: 15:54 Patient medically screened. kb 18:57 Differential diagnosis: Bronchitis CHF exacerbation, Chronic Obstructive Pulmonary kb Disease pneumonia, flu, covid. Antibiotic administration: Levaquin given. Data reviewed: vital signs, nurses notes. Consideration of Admission/Observation Patient was admitted/placed on observation. Escalation of care including admission/observation considered. Management of patient was discussed with the following: Primary Care Provider: Dr Allen accepts pt for inpatient admission. Wants levaquin 500mg daily, tamiflu, and D5 1/2NS \T\ 50ml/hr. Historians other than the Patient: Spouse/Significant Other: . Care significantly affected by the following chronic conditions: Congestive Heart Failure, Chronic Obstructive Pulmonary Disease. Counseling: I had a detailed discussion with the patient and/or guardian regarding the historical points, exam findings, and any diagnostic results supporting the discharge/admit diagnosis, lab results, radiology results, the need for further work-up and treatment in the hospital. 05/28 16:05 Order name: Protime (+inr); Complete Time: 19:04 kb 05/28 16:44 Order name: Comprehensive Metabolic Panel; Complete Time: 18:03 EDWV 05/28 16:44 Order name: Troponin High Sensitivity; Complete Time: 18:03 EDWV 05/28 16:44 Order name: NT PRO-BNP; Complete Time: 18:03 EDWV 05/28 16:44 Order name: Lactate w/ 2H reflex if indic.; Complete Time: 17:12 EDWV 05/28 16:44 Order name: CBC with Automated Diff; Complete Time: 19:19 EDWV 05/28 16:44 Order name: PTT, Activated Partial Thromb; Complete Time: 17:00 EDWV 05/28 16:44 Order name: Blood Culture EDWV 05/28 16:47 Order name: Blood Culture [facility] 05/28 17:17 Order name: SARS-COV-2 Antigen Rapid; Complete Time: 17:42 EDMS 08/06 17:17 Order name: Influenza Screen (A ; Complete Time: 17:37 EDMS 08/06 19:19 Order name: CBC Smear Scan; Complete Time: 19:19 EDMS 08/06 16:05 Order name: Chest Single View XRAY; Complete Time: 18:46 kb 08/ 16:05 Order name: Accucheck; Complete Time: 16:33 kb 08 16:05 Order name: Cardiac monitoring; Complete Time: 16:33 kb 08 16:05 Order name: EKG - Nurse/Tech; Complete Time: 16:33 kb 08 16:05 Order name: IV Saline Lock - Large Bore; Complete Time: 16:33 kb 08 16:05 Order name: Labs collected and sent; Complete Time: 16:33 kb 0806 16:05 Order name: O2 Per Protocol; Complete Time: 16:33 kb 08 16:05 Order name: O2 Sat Monitoring; Complete Time: 16:33 kb 08 16:05 Order name: Vital Signs; Complete Time: 16:33 kb 08 16:58 Order name: Labs - recollect needed: recollect the light green top; Complete Time: 17:12eb EC:07 Rate is 99 beats/min. Rhythm is regular. QRS [place]tt is Normal. MO interval is prolonged kb at 210 msec. QRS interval is normal at 162 msec. QT interval is prolonged at 503 msec. Administered Medications: 16:44 Drug: Magnesium Sulfate IVPB 1 grams IVPB once over 1 hrs Route: IVPB; Infused Over: 1 kj2 hrs; Site: right wrist; 17:57 Follow up: Response: No adverse reaction; IV Status: Completed infusion mb9 18:40 Drug: Potassium Chloride PO 40 mEq PO once Route: PO; kj2 18:53 Follow up: Response: No adverse reaction kj2 18:54 CANCELLED (Physician Discretion): rocephin1 grams IV at calculated rate once; Given kb slow IV push per pharmacy instructions 18:55 CANCELLED (Physician Discretion): [id number] mg IVPB once over 1 hrs; mix in 250 mL NSkb 19:38 Drug: levofloxacin IVPB 500 mg 100 ml IVPB once over 60 mins Volume: 100 ml; Route: kj2 IVPB; Infused Over: 60 mins; Site: left forearm; 19:38 Drug: Oseltamivir PO 75 mg PO once Route: PO; kj2 19:38 Drug: D5-1/2 NS IV 50 ml IV at ml/hr continuous Route: IV; Rate: ml/hr; Site: left kj2 forearm; Disposition: 05/29 14:12 Co-signature as Attending Physician, James Jacobo MD I reviewed the patient's care rn provided by the Advanced Practice Provider and agree with the diagnosis and treatment plan. Disposition Summary: 05/28/24 18:57 Hospitalization Ordered Notes: Hospitalization Status: Inpatient Admission kb Provider: Yung Allen Location: Telemetry/MedSurg (Inpatient) kb Condition: Stable kb Problem: new kb Symptoms: are unchanged kb Bed/Room Type: Standard Room Assignment: 203(05/28/24 19:42) Diagnosis - Pneumonia, unspecified organism kb - Influenza due to identified novel influenza A virus - B kb - Hypoxia kb - Hypokalemia kb Forms: - Medication Reconciliation Form kb - SBAR form kb - Leadership Thank You Letter kb Signatures: Dispatcher [employer] EDMS Eva Altman, [employer] SALESPERSON-C [employer] SALESPERSON-Ckb James Jacobo MD MD rn Garcia, Cindy RN RN Tyesha Duque Norma, RN RN nj1 Stefanie John, RN RN cm10 Jovita Arango, RN RN kj2 Gi Hyman RN mb9 Corrections: (The following items were deleted from the chart) 05/28 17:06 17:06 PROTIME (+INR)+COAG.LAB.BRZ ordered. EDWV EDWV 17:06 17:06 SARS-COV-2 Antigen Rapid+I.LAB.BRZ ordered. EDWV EDWV 17:06 17:06 Chest Single View+RAD.RAD.BRZ ordered. EDWV EDMS 18:19 18:04 Chest Single View+RAD.RAD.BRZ ordered. EDWV EDWV 18:31 17:06 BLOOD CULTURE*+BA.LAB.BRZ ordered. EDWV EDWV 18:31 17:06 COMPREHENSIVE METABOLIC PANEL+C.LAB.BRZ ordered. EDWV EDWV 18:31 17:06 PROBNP+C.LAB.BRZ ordered. EDWV EDWV 18: 17:06 Troponin High Sensitivity+C.LAB.BRZ ordered. EDMS EDMS 18:35 17:06 CBC+H.LAB.BRZ ordered. EDMS EDMS 18:35 17:06 LACTATE+C.LAB.BRZ ordered. EDMS EDMS 18:35 17:06 PTT, ACTIVATED+COAG.LAB.BRZ ordered. EDMS EDMS 18:35 17:06 Influenza Screen (A \T\ B)+BA.LAB.BRZ ordered. EDMS EDMS 18:54 18:47 Rocephin IV 1 grams IV at calculated rate once; Given slow IV push per pharmacy kb instructions ordered. kb 18:55 18:47 Zithromax IVPB 500 mg IVPB once over 1 hrs; mix in 250 mL NS ordered. kb kb 19:42 18:57 kb
[2024-05-28 19:01] LABS: PT Prothrombin Time 12.9 SECONDS (9.4-12.5); Protime INR 1.16
[2024-05-28 19:18] LABS: Anisocytosis 1+; Blood Morphology Comment NOTED (NOT SEEN); Platelet Estimate ADEQ; Poikilocytosis 1+; White Blood Cell Scan OK (OK)
[2024-05-28] MEDS ORDERED: OSELTAMIVIR 75 MG CAP PO ONE (19:20)
[2024-05-28] MEDS ORDERED: Levofloxacin500mg IV 500 MG/100 ML BAG IV ONE (19:20)
[2024-05-28] MEDS ORDERED: D5 0.45 NS 1,000 ML IV ONE (19:21)
[2024-05-28 21:05] VITALS: BMI 28.3
[2024-05-28] MEDS: OSELTAMIVIR 75 MG CAP PO SCH (21:05)
[2024-05-28] MEDS ORDERED: ACETAMINOPHEN 500 MG TAB PO PRN (21:05)
[2024-05-28] MEDS: D5 0.45 NS 1,000 ML IV SCH (21:05)
[2024-05-29 06:01] LABS: Absolute Lymphocytes (CBC) 0.3 K/uL (0.7-4.9); Absolute Monocytes 0.8 K/uL (0.1-1.3); Absolute Neutrophil 7.7 K/uL (1.8-8.0); Basophils % 0.1 % (0-1.3); Eosinophils % 0.5 % (0-4.4); Hematocrit 30.8 % (39.6-49.0); Hemoglobin 10.3 g/dL (13.6-17.9); Lymphocytes % 3.8 % (15.3-44.8); MCH 29.2 pg (27.0-35.0); MCHC 33.6 g/dL (32.0-36.0); MCV 86.9 fL (80-100); MPV 8.3 fL (7.6-11.3); Monocytes % 8.5 % (3.3-12.3); Neutrophils % 87.1 % (41.7-73.7); Platelets 248 thou/uL (152-406); RBC Red Blood Cell Count 3.55 M/uL (4.33-5.43); Red Cell Distribution Width 16.4 % (12.1-15.2)
[2024-05-29 06:18] LABS: Anion Gap 9.1 mEq/L (5.0-15.0); Potassium 3.1 mEq/L (3.5-5.1)
[2024-05-29] MEDS: OSELTAMIVIR 75 MG CAP PO SCH (07:49)
[2024-05-29] MEDS: MAGNESIUM OXIDE 400 MG TAB PO SCH (08:17)
[2024-05-29] MEDS: POTASSIUM CL SA 10 MEQ TAB PO SCH (08:17)
[2024-05-29] MEDS: METHYLPREDNISOLONE 40 MG INJ IV SCH (12:12)
[2024-05-29] MEDS ORDERED: ALBUTEROL SULFATE 90 MCG IH PRN (12:25)
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
--- NOTE | 2024-05-29 13:25 | RAD REPORT ---
EXAM DESCRIPTION: CT - Chest For Pe Angio - 05/29/2024 1:13 pm CLINICAL HISTORY: HYPOXIA COMPARISON: Chest For Pe Angio dated 01/09/2024; Lung Cancer Screening CT W/O dated 02/24/2020; Chest F or Pe Angio dated 03/03/2019; CTANGIO CHEST FOR PE dated 12/08/2007; Chest Single View dated 05/28/2024 TECHNIQUE: Dynamically enhanced axial 3 mm thick images of the chest were obtained during administra tion of <100> mL Isovue 370 IV contrast. Coronal and oblique reconstruction images were generated and reviewed. Exam utilizes a protocol for optimal evaluation of pulmonary arterial tree. Maximum intensity projections 3D imaging was utilized All CT scans are performed using dose optimization technique as appropriate and may include automated exposure control or mA/KV adjustment according to patient size. FINDINGS: Chest Wall: No suspicious thyroid nodules or pathologic lymphadenopathy. Lungs: Chronic cavitation at the right upper lobe with mostly thin long. Bullous changes at the left lung apex and scarring is similar. Worsened aeration is present in the right lower lobe were there i s a combination of a nodular and mildly consolidative airspace disease. Pleura: No significant effusions or pneumothorax. Mediastinum/rakesh: No pathologic lymphadenopathy. Pulmonary arteries/Aorta: No filling defect identified. No aortic aneurysm. Heart: No significant pericardial effusion. Normal heart size. Multi-vessel coronary disease. Aortic valve calcifications. Upper abdomen: No acute abnormality.Aortic atherosclerosis . Unchanged right adrenal nodule which is similar in size to at least 02/24/2020 and is benign. Bones: No acute abnormality. IMPRESSION: Negative for pulmonary embolism. Irregular airspace disease throughout the right lower lobe, portions of which are mildly consolidativ e, is concerning for pneumonia, possibly secondary to aspiration. Suggest radiographic follow-up to e nsure resolution.
[2024-05-29] MEDS: ATORVASTATIN 20 MG TAB PO SCH (20:34)
[2024-05-29] MEDS: Levofloxacin500mg IV 500 MG/100 ML BAG IV SCH (20:35)
[2024-05-29] MEDS: DIPHENHYDRAMINE PO SCH (20:35)
[2024-05-29] MEDS: ACETAMINOPHEN PO SCH (20:35)
[2024-05-30] MEDS: PANTOPRAZOLE 40MG TABLET PO SCH (05:43)
[2024-05-30] MEDS: AMLODIPINE 10 MG TAB PO SCH (08:20)
[2024-05-30] MEDS: allopurinoL 300 MG TAB PO SCH (08:20)
[2024-05-30] MEDS: VALSARTAN 160 MG TAB PO SCH (08:20)
[2024-05-30] MEDS: TAMSULOSIN 0.4 MG SR CAP PO SCH (08:20)
[2024-05-30] MEDS: ACETAMINOPHEN 500 MG TAB PO SCH (08:21)
[2024-05-30] MEDS: METOPROLOL XL 100 MG TAB PO SCH (08:22)
[2024-05-30] MEDS: FUROSEMIDE 20 MG TABLET PO SCH (08:22)
[2024-05-30] MEDS: SPIRONOLACTONE 25 MG TABLET PO SCH (08:22)
[2024-05-30] MEDS: ASPIRIN 81 MG CHEWABLE TABLET PO SCH (08:22)
[2024-05-30] MEDS: HOME MED (Fluticasone/Umeclidin/Vilanter [Trelegy Ellipta 100-62.5-25] Blst.W.Dev IH SCH (08:23)
[2024-05-30] MEDS: DAPAGLIFLOZIN PROPANEDIOL 5 MG PO SCH (08:23)
[2024-05-30] MEDS: DUTASTERIDE 0.5 MG GEL CAP PO SCH (08:23)
[2024-05-30] MEDS: ENOXAPARIN 40 MG/0.4 ML SQ SCH (08:23)
[2024-05-30 08:59] VITALS: TEMP 97.5
[2024-05-30 09:11] LABS: Absolute Lymphocytes (CBC) 0.2 K/uL (0.7-4.9); Absolute Monocytes 0.4 K/uL (0.1-1.3); Absolute Neutrophil 8.1 K/uL (1.8-8.0); Basophils % 0.1 % (0-1.3); Hematocrit 34.8 % (39.6-49.0); Hemoglobin 11.3 g/dL (13.6-17.9); Lymphocytes % 2.3 % (15.3-44.8); MCH 28.7 pg (27.0-35.0); MCHC 32.5 g/dL (32.0-36.0); MCV 88.2 fL (80-100); MPV 8.6 fL (7.6-11.3); Monocytes % 4.4 % (3.3-12.3); Neutrophils % 93.2 % (41.7-73.7); Platelets 303 thou/uL (152-406); RBC Red Blood Cell Count 3.95 M/uL (4.33-5.43); Red Cell Distribution Width 16.3 % (12.1-15.2)
[2024-05-30 09:18] LABS: Anion Gap 11.4 mEq/L (5.0-15.0); Potassium 3.4 mEq/L (3.5-5.1)
[2024-05-30 10:07] VITALS: O2SAT 96
[2024-05-30 10:47] VITALS: BP 142/72
--- NOTE | 2024-05-30 13:12 | EKG ---
Test Date: 2024-05-28 Test Time: 16:18:43 Baby Formula Mixer: MB MEASUREMENT RESULTS: Intervals: Rate: 99 WI: 210 QRSD: 162 QT: 392 QTc: 503 Jackson: P: 88 WI: 210 QRS: 66 T: 39 INTERPRETIVE STATEMENTS: Sinus rhythm with 1st degree AV block with frequent and consecutive premature ventricular complexes Right bundle branch block Abnormal ECG Compared to ECG 04/03/2023 11:28:12 Ventricular premature complex(es) now present First degree AV block now present Electronically Signed On 05-30-24 13:06:20 CDT by Saurabh Arriola
== END 2024-05-30 10:50 | disposition home or self-care (01) | DRG 195 ==
LOC: ER 15:43 → ERHOLD 19:05 → 2ND 20:47
PROVIDERS: ADMIT Internal Medicine; ATTEND Internal Medicine
DX: J10.08 Influenza due to other identified influenza virus with other specified pneumonia (principal); J15.9 Unspecified bacterial pneumonia; E78.5 Hyperlipidemia, unspecified; I10 Essential (primary) hypertension; E87.6 Hypokalemia; M10.9 Gout, unspecified; E11.9 Type 2 diabetes mellitus without complications; J44.0 Chronic obstructive pulmonary disease with (acute) lower respiratory infection; J44.1 Chronic obstructive pulmonary disease with (acute) exacerbation; R09.02 Hypoxemia; Z88.5 Allergy status to narcotic agent; Z79.82 Long term (current) use of aspirin; Z11.52 Encounter for screening for COVID-19; Z90.49 Acquired absence of other specified parts of digestive tract; Z85.46 Personal history of malignant neoplasm of prostate; Z79.899 Other long term (current) drug therapy; Z87.891 Personal history of nicotine dependence; Z85.038 Personal history of other malignant neoplasm of large intestine
CPT/HCPCS: 36415; 71045; 71275; 80048; 80053; 82947; 83605; 83880; 84484; 85025; 85610; 85730; 87040; 87804; 87811; 93005; 96365; 96375; 99285; J0696; J2919; J3475; J7050; J7799; Q9967

== ENCOUNTER 2024-08-13 13:18 | Day surgery (SDC) | payer OTHER, MEDICARE ==
--- NOTE | 2024-08-09 09:10 | RAD REPORT ---
EXAMINATION: TWO VIEW CHEST XR CLINICAL INDICATION: Pre op pending left and right heart cath TECHNIQUE: 2 views of the chest was performed. COMPARISON: 05/28/2024 FINDINGS: Prominent emphysematous changes are seen with significant areas of scarring in the upper lobes with r ight apical cavitary component. The heart is upper limit of normal in size. No displaced fractures evident. IMPRESSION: COPD with significant irregular scarring in both lung apices, including cavitary appearance in the ri ght apex. No focal consolidation seen. The USPSTF recommends annual screening for lung cancer with low-dose computed tomography (LDCT) in ad ults aged 50 to 80 years who have a 20 pack-year smoking history and currently smoke or have quit within the past 15 years. Screening should be discontinued once a person has not smoked for 15 years or develops a health problem that substantially limits life expectancy or the ability or willingness to have curative lung surgery.
[2024-08-09 09:21] LABS: Absolute Eosinophils 0.1 K/uL (0-0.5); Absolute Lymphocytes (CBC) 0.8 K/uL (0.7-4.9); Absolute Monocytes 0.6 K/uL (0.1-1.3); Absolute Neutrophil 7.5 K/uL (1.8-8.0); Basophils % 0.4 % (0-1.3); Eosinophils % 0.9 % (0-4.4); Hematocrit 35.2 % (39.6-49.0); Hemoglobin 11.6 g/dL (13.6-17.9); MCH 26.7 pg (27.0-35.0); MCHC 32.9 g/dL (32.0-36.0); MCV 81.2 fL (80-100); MPV 7.8 fL (7.6-11.3); Monocytes % 7.1 % (3.3-12.3); Neutrophils % 82.6 % (41.7-73.7); Platelets 368 thou/uL (152-406); RBC Red Blood Cell Count 4.34 M/uL (4.33-5.43); Red Cell Distribution Width 18.3 % (12.1-15.2)
[2024-08-09 09:22] LABS: Anion Gap 7.5 mEq/L (5.0-15.0); Potassium 3.5 mEq/L (3.5-5.1)
[2024-08-09 09:24] LABS: PTT, Activated Partial Thromb 31.4 SECONDS (24.3-36.9); Protime INR 1.07
[2024-08-13] MEDS ORDERED: NA CHLORIDE 0.9% 0 ML ONE (13:44)
[2024-08-13] MEDS ORDERED: HEPA 1000U/500MLS 2,000 UNIT/1,000 ML BAG IV ONE (13:47)
[2024-08-13] MEDS ORDERED: LIDOCAINE 1% 20 ML MDV ONE (13:47)
[2024-08-13] MEDS ORDERED: HEPARIN 10,000 UNIT/10 ML VIAL IV ONE (13:47)
[2024-08-13] MEDS ORDERED: VERAPAMIL HCL 10 MG/4 ML VIAL IV ONE (13:47)
[2024-08-13] MEDS ORDERED: NA CHLORIDE 0.9% 500 ML ONE (13:48)
[2024-08-13] MEDS ORDERED: ATROPINE SULF 1 MG/10 ML SYR IV ONE (13:48)
[2024-08-13] MEDS ORDERED: ASPIRIN 325 MG TAB ONE (13:49)
[2024-08-13] MEDS ORDERED: TICAGRELOR 90 MG TABLET PO ONE (13:49)
[2024-08-13] MEDS ORDERED: CLOPIDOGREL 75 MG TABLET ONE (13:49)
[2024-08-13] MEDS ORDERED: HEPARIN 5000 UNIT/ML 1 ML VIAL ONE (13:49)
[2024-08-13] MEDS ORDERED: FENTANYL CITR 100 MCG/2 ML ONE (13:52)
[2024-08-13] MEDS ORDERED: MIDAZOLAM HCL 2 MG/2 ML INJ ONE (13:53)
[2024-08-13] MEDS ORDERED: HEPA 1000U/500MLS 1,000 UNIT/500 ML BAG IV ONE (13:53)
[2024-08-13 14:03] VITALS: TEMP 96.8
[2024-08-13 17:24] VITALS: BP 145/75; O2SAT 98
== END 2024-08-13 17:23 | disposition home or self-care (01) ==
LOC: PRE 13:18 → CCL 17:23
PROVIDERS: ATTEND Internal Medicine
DX: I35.0 Nonrheumatic aortic (valve) stenosis (principal); I25.10 Atherosclerotic heart disease of native coronary artery without angina pectoris; Z53.8 Procedure and treatment not carried out for other reasons; I10 Essential (primary) hypertension; E11.9 Type 2 diabetes mellitus without complications; J44.9 Chronic obstructive pulmonary disease, unspecified; Z88.5 Allergy status to narcotic agent
CPT/HCPCS: 85025; 80048; 36415; 85610; 82947; 85730; 71046; J1644; J2001; J2250; J3010; J7040; J0461

== ENCOUNTER 2025-02-01 12:28 | Observation (INO) | payer OTHER, MEDICARE ==
[2025-02-01 13:08] LABS: Absolute Basophils 0.1 K/uL (0-0.5); Absolute Eosinophils 0.1 K/uL (0-0.5); Absolute Lymphocytes (CBC) 0.9 K/uL (0.7-4.9); Absolute Monocytes 0.7 K/uL (0.1-1.3); Absolute Neutrophil 9.9 K/uL (1.8-8.0); Basophils % 0.6 % (0-1.3); Eosinophils % 0.7 % (0-4.4); Hematocrit 21.8 % (39.6-49.0); Hemoglobin 6.7 g/dL (13.6-17.9); Lymphocytes % 8.1 % (15.3-44.8); MCH 20.9 pg (27.0-35.0); MCHC 30.8 g/dL (32.0-36.0); MPV 7.8 fL (7.6-11.3); Monocytes % 5.6 % (3.3-12.3); Platelets 353 thou/uL (152-406); RBC Red Blood Cell Count 3.21 M/uL (4.33-5.43); Red Cell Distribution Width 18.2 % (12.1-15.2)
[2025-02-01 13:20] LABS: Anion Gap 9.9 mEq/L (5.0-15.0); Potassium 3.9 mEq/L (3.5-5.1)
[2025-02-01 13:26] LABS: ALT/SGPT 15 U/L (16-61); Albumin 3.1 g/dL (3.4-5.0); Albumin/Globulin Ratio 0.8 (1.1-1.8); Alkaline Phosphatase 110 U/L (45-117); Bilirubin Total 0.3 mg/dL (0.2-1.0); Globulin 3.7 g/dL (2.3-3.5); Protein, Total 6.8 g/dL (6.4-8.2)
[2025-02-01 13:30] LABS: AST/SGOT < 10 U/L (15-37); Bilirubin Direct < 0.2 mg/dL (0-0.2); Bilirubin Indirect, Calculated 0.1 mg/dL (0.2-0.8)
[2025-02-01 13:58] LABS: White Blood Cell Scan OK (OK)
[2025-02-01 13:59] LABS: Anisocytosis 1+; Blood Morphology Comment NOTED (NOT SEEN); Hypochromasia 1+; Microcytosis 1+; Platelet Estimate ADEQ; Polychromasia SLIGHT
[2025-02-01] MEDS ORDERED: NA CHLORIDE 0.9% 250 ML ONE (14:47)
--- NOTE | 2025-02-01 14:56 | RAD REPORT ---
EXAM: Chest Abdomen Pelvis W Cont CLINICAL INDICATION: Chest and abdominal pain. Shortness of breath TECHNIQUE: CT chest, abdomen and pelvis was performed, with 100 cc Isovue-300 IV contrast, as per de partment protocol. Axial, sagittal and coronal reconstructions were obtained. One or more of the following dose reduction techniques were used: Automated exposure control, adjustment of the mA and/o r kV according to the patient size, and/or iterative reconstruction. Unless otherwise specified, incidental findings do not require dedicated imaging follow-up. [id number]. Oral contrast not given. This limits evaluation of the bowel. COMPARISON: CT chest [address] abdomen FINDINGS: 6.8 cm right upper lobe cavitary lesion containing mild peripheral soft tissue. It has increased in s ize. A 0.5 cm left upper lobe cavitary lesion minimally enlarged. It contains minimal soft tissue peripherally. 5.6 cm medial right upper lobe cavitary lesion containing fluid. Right lower lobe opacities have mostly resolved. Mild additional chronic appearing lung opacities. Mild left upper lobe bronchiectasis. Blebs and bulla are present within the lungs. No pleural effusion.. No pericardial effusion. Aortic valve replacement. 2.2 cm cystic mass pancreatic head. Liver, spleen, left adrenal and right kidney unremarkable. 6 cm left renal cyst 3.1 cm low-density mass right adrenal gland without significant change from 2016 likely an adenoma. N o follow-up recommended. Several ventral hernias. One is moderate in size and contains nondilated small bowel. No obstruction. Moderate amount stool within the colon. Atherosclerosis.. Cholecystectomy Prostatic calcifications. Small left and [id number] right inguinal hernias containing fat. There is no evidence of diverticulitis IMPRESSION: Bilateral cavitary lesions one which contains fluid likely atypical infection. 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 Nonemergen t MRI recommended.
--- NOTE | 2025-02-01 16:36 | P.SSS ---
Patient History Date of Service: 02/01/25 Reason for admission: ANEMIC 6 GM History of Present Illness: RANI HAS HAD MANY MEDICAL ISSUES INCLUDING COLON CANCER. CHF, CAD, STENTS, RECENT BOVINE VALVE, AORTIC, RECENT A FIB WITH NEW MEDICINE ELIQUIS. HE HAS NO ACUTE BLEEDING BUT IS FATIGUED. HE WILL GET TWO UNITS OF BLOOD. FOLLOWING IS HIS MEDICAL HISTORY FROM OUR EMR: 2018 Colon cancer [C18.9 0.4] 2018 Peripheral vascular disease [I73.9] 3 STENTS- R ILIAC MELINDA SFA STENOSIS, DR. ROSARIO. 3 STENTS- R ILIAC MELINDA SFA STENOSIS, DR. ROSARIO. 2018 DM type 2 causing vascular disease [E11.59 0.2] 2018 Carotid artery occlusion [I65.29] 2018 COPD (chronic obstructive pulmonary disease) [J44.9 0.3] stable stable 2018 Nicotine addiction [F17.200] 2018 History of common carotid artery stent placement [Z98.890, Z95.828] 2019 Autonomic neuropathy [G90.9] 2019 Endothelial dysfunction of coronary artery [I25.10] 2019 GUNNER (obstructive sleep apnea) [G47.33] 2019 Pleural mass [J94.8] APICAL MASS, FU BY Miranda VENTURA. SCOPE DONE- 20 % UPPER LUNG , MASS WAS FUNGAL. APICAL MASS, FU BY Miranda VENTURA. SCOPE DONE- 20 % UPPER LUNG , MASS WAS FUNGAL. 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 planning on tavr soon severe 0.9 cm. planning on tavr soon 2023 Ventricular trigeminy [I49.8] 2023 Positive cardiac stress test [R94.39] 2023 Ulcer of right fifth toe due to diabetes mellitus [E11.621, L97.519 0.8 0.6] Last addressed: 10/09/2024 and vascular insufficiency. ref to wound clinic. seeing cards and vascular insufficiency. ref to wound clinic. seeing cards 2023 Coronary artery occlusion [I24.0 0.2] Last addressed: 10/09/2024 planning on PCI soon planning on PCI soon 2023 Colon polyp [K63.5] needs procedure to remove, complicated, not cleared until cardiac issues resolve needs procedure to remove, complicated, not cleared until cardiac issues resolve Allergies codeine [Codeine] Adverse Reaction (Intermediate, Verified 08/09/24 08:24) Itching hydrocodone bitartrate [From Vicodin] Adverse Reaction (Intermediate, Verified 08/09/24 08:24) Hallucination hydromorphone HCl [From Dilaudid] Adverse Reaction (Intermediate, Verified 08/09/24 08:24) Hallucination morphine Adverse Reaction (Intermediate, Verified 08/09/24 08:24) Hallucination Home Medications: Acetaminophen [Tylenol Extra Strength] 1,000 tab PO DAILY 03/03/19 Acetaminophen/Diphenhydramine [Tylenol Pm Ex-Strength Caplet] 1 tab PO BEDTIME 03/03/19 Albuterol Sulfate [Proair Respiclick] 2 puff IH Q6HP PRN 03/03/19 Amlodipine Besylate 1 tab PO DAILY 03/03/19 Aspirin [Harpreet Chewable Aspirin] 1 tab PO DAILY 03/03/19 Atorvastatin Calcium 1 tab PO BEDTIME 03/03/19 Cyanocobalamin (Vitamin B-12) [Vitamin B12] 1,000 mcg PO DAILY 03/03/19 Fluticasone/Umeclidin/Vilanter [Trelegy Ellipta 100-62.5-25] 1 puff IH DAILY 03/03/19 Metoprolol Succinate [Toprol Xl] 1 tab PO DAILY 03/03/19 Mitochondrial Energry Booster 1 cap PO DAILY 03/03/19 Omeprazole [Prilosec] 1 cap PO DAILY 03/03/19 allopurinoL [Allopurinol] 3 tab PO DAILY 03/03/19 Furosemide 20 mg PO DAILY #90 01/10/24 Dapagliflozin Propanediol [Farxiga] 1 tab PO DAILY 05/29/24 Dutasteride 0.5 mg PO DAILY 05/29/24 Olmesartan Medoxomil 40 mg PO DAILY 05/29/24 Oseltamivir [Tamiflu*] 75 mg PO BID #10 cap 05/29/24 Spironolactone 1 tab PO DAILY 05/29/24 Tamsulosin HCl [Flomax] 0.4 mg PO DAILY 05/29/24 Levofloxacin [Levaquin] 500 mg PO DAILY #7 tab 05/30/24 predniSONE [Prednisone*] 20 mg PO BID #60 tab 05/30/24 - Past Medical/Surgical History Diabetic: Yes -: Hyperlipidemia -: HTN -: COPD -: Colon Ca -: DM -: Colon Resection -: Lobotomy Left Upper Lung - Family History Mother Notes: Pancreatic CA Father Notes: Heart Failure Brother Notes: liver failure Sister -: Diabetes Notes: ovarian ca - Social History Alcohol use: No CD- Drugs: No Caffeine use: Yes Review of Systems 10-point ROS is otherwise unremarkable General: Weakness Physical Examination - Physical Exam General: Oriented x3, Mild distress HEENT: Atraumatic, PERRLA, Mucous membr. moist/pink, EOMI, Sclerae nonicteric Neck: Supple, 2+ carotid pulse no bruit, No LAD, Without JVD or thyroid abnormality Respiratory: Clear to auscultation bilaterally, Normal air movement Cardiovascular: Regular rate/rhythm, Normal S1 S2 Gastrointestinal: Normal bowel sounds, No tenderness Musculoskeletal: No tenderness Integumentary: No rashes Neurological: Normal gait, Normal speech, Normal strength at 5/5 x4 extr, Normal tone, Normal affect Lymphatics: No axilla or inguinal lymphadenopathy - Studies Laboratory Data (last 24 hrs) 02/01/25 02/01/25 02/01/25 Unknown 12:52 12:52 WBC 11.70 H Hgb 6.7 L Hct 21.8 L Plt Count 353 Sodium 135 L Potassium 3.9 BUN 19 H Creatinine 1.11 Glucose 193 H Total Bilirubin 0.3 AST < 10 L ALT 15 L Alkaline Phosphatase 110 - Diagnosis (Problem(s)) (1) Anemia Current Visit: Yes Status: Acute Plan: 6 GM IN [place]. GIVE TWO UNITS OF BLOOD CT SHOWS NO SPLEEN DAMAGE. HE IS ALREADY SEEN BY PULMONARY FOR LUNG CAVITY THAT IS SUSPECTED TO BE FUNGAL IN ORIGIN. HE HAS BEEN TO GI DOCTOR IN [facility] BUT HE WANTS TO GO LOCAL NOW. STOP ELIQUIS I WILL ASK DR. BROWNE FOR WATCHMAN INSTEAD. HE IS AT HIGH RISK OF BLEEDING. HE MAY GO HOME IN AM. FU AT OFFICE IN TWO WEEKS. - Disposition Disposition: ROUTINE DISCHARGE Followup: Yung Allen MD [Primary Care Provider] - Prvt As Needed
--- NOTE | 2025-02-01 16:51 | ER ---
Nurse's Notes [facility] Name: Maximiliano Robison Age: 74 yrs Sex: Male : 1950 Arrival Date: 02/01/2025 Time: 12:28 Bed 8 Private MD: Diagnosis: Symptomatic anemia Presentation: 02/01 12:46 Chief complaint: Patient states: Sent to the ER for low HGB levels. Unsure how low. Pt cm10 reports shortness of breath and dizziness. Pts states pt looks more pale. Coronavirus screen: Client denies travel out of the [place] in the last 14 days. Ebola Screen: Patient denies travel to an Ebola-affected area in the 21 days before illness onset. Initial Sepsis Screen: Does the patient meet any 2 criteria? No. Patient's initial sepsis screen is negative. Does the patient have a suspected source of infection? No. Patient's initial sepsis screen is negative. Risk Assessment: Do you want to hurt yourself or someone else? Patient reports no desire to harm self or others. Onset of symptoms was February 01, 2025. 12:46 Method Of Arrival: Ambulatory cm10 12:46 Acuity: STEPHANIA 3 cm10 Triage Assessment: 12:47 General: Appears uncomfortable, Behavior is calm, cooperative. Pain: Denies pain. cm10 Neuro: No deficits noted. Level of Consciousness is awake, alert, obeys commands, Oriented to person, place, time, situation, Appropriate for age. Respiratory: Reports shortness of breath Airway is patent Respiratory effort is even, unlabored, Respiratory pattern is. Derm: Skin is pale. Historical: - Allergies: 12:47 Codeine; cm10 12:47 Morphine; cm10 - Home Meds: 15:00 Eliquis oral [Active]; aa5 - PMHx: 12:47 Cancer Prostate and colon; Congestive heart failure; COPD; Hyperlipidemia; Hypertension;cm10 15:00 Atrial fibrillation; Pancreas mass (being monitored); aa5 15:00 Home O2 PRN; aa5 - PSHx: 12:47 Colectomy; Valve Replacement; Lung Resection; cm10 - Immunization history:: Adult Immunizations up to date. - Infectious Disease History:: Denies. - Social history:: Smoking status: Patient/guardian denies using tobacco, the patient reports quitting approximately 6 years ago. - Family history:: not pertinent. Screenin:55 [facility] ED Fall Risk Assessment (Adult) History of falling in the last 3 months, aa5 including since admission Yes- fall prone (multiple falls) (3 pts) Confusion or Disorientation No (0 pts) Intoxicated or Sedated No (0 pts) Impaired Gait No (0 pts) Mobility Assist Device Used No (0 pt) Altered Elimination No (0 pt) Score/Fall Risk Level 3 or more points = High Risk Oriented to surroundings, Maintained a safe environment, Educated pt \T\ family on fall prevention, incl call for assistance when getting out of bed, Assessed \T\ reinforced patient's understanding of fall precautions. Abuse screen: Denies threats or abuse. Nutritional screening: No deficits noted. Tuberculosis screening: No symptoms or risk factors identified. Assessment: 12:55 General: Appears comfortable, Behavior is calm, cooperative, Reports fatigue for 1-2 aa5 weeks ago . Reports frequent falls x 2 weeks ago.. Pain: Complains of pain in left lateral chest Pain does not radiate. Pain currently is 0 out of 10 on a pain scale. Quality of pain is described as aching, Pain began approximately 2 weeks ago/post fall Is intermittent. Neuro: Level of Consciousness is awake, alert, obeys commands, Oriented to person, place, time, situation. Cardiovascular: Heart tones S1 S2 present Rhythm is regular. Respiratory: Reports shortness of breath on exertion Airway is patent Respiratory effort is even, unlabored, Respiratory pattern is regular, symmetrical. GI: Abdomen is round Patient currently denies bloody stool, nausea, vomiting. : No signs and/or symptoms were reported regarding the genitourinary system. EENT: No signs and/or symptoms were reported regarding the EENT system. Derm: Skin is dry, Skin is pale, Skin temperature is warm. Musculoskeletal: Range of motion: intact in all extremities. 13:56 Reassessment: Patient appears in no apparent distress at this time. Patient and/or jl7 family updated on plan of care and expected duration. Pain level reassessed. Patient is alert, oriented x 3, equal unlabored respirations, skin warm/dry/pink. 15:00 Neuro: Level of Consciousness is awake, alert, obeys commands, Oriented to person, aa5 place, time, situation. Respiratory: Airway is patent Respiratory effort is even, unlabored, Respiratory pattern is regular, symmetrical. Derm: Skin is dry, Skin is pale, Skin temperature is warm. 15:40 Reassessment: RBC Unit #1: started infusion at 1510, starting rate 50mls/hr and aa5 currently infusing at 150mls/hr, no s/s of transfusion reaction noted or reported, pt tolerating well. See transfusion record for complete documentation and VS.. 17:23 Reassessment: RBC Unit #1 completed, pt tolerated well. See blood transfusion record aa5 for complete documentation. . 17:23 Reassessment: Patient is alert, oriented x 3, equal unlabored respirations, skin aa5 warm/dry/pink. Awaiting to be transported to Room 206, pt notified of wait time. . Vital Signs: 12:46 BP 129 / 56; Pulse 86; Resp 15; Temp 97.6(O); Pulse Ox 93% on R/A; Weight 84.1 kg; cm10 Height 5 ft. 10 in. ; Pain 0/10; 13:56 BP 125 / 55; Pulse 64; Resp 15; Pulse Ox 100% ; jl7 14:22 BP 141 / 62; Pulse 65; Resp 16 S; Pulse Ox 95% on R/A; aa5 15:00 BP 146 / 81; Pulse 67; Resp 18 S; Temp 97.8(O); Pulse Ox 95% on R/A; aa5 15:40 BP 137 / 73; Pulse 67; Resp 20; Temp 98.4(O); Pulse Ox 95% on R/A; aa5 17:10 BP 144 / 62; Pulse 68; Resp 19 S; Temp 98.2(O); Pulse Ox 99% on 2 lpm NC; aa5 17:23 BP 143 / 62; Pulse 67; Resp 18 S; Temp 98.3(O); Pulse Ox 100% on 2 lpm NC; aa5 12:46 Body Mass Index 26.60 (84.10 kg, 177.8 cm) cm10 12:46 Pain Scale: Adult cm10 ED Course: 12:32 Patient arrived in ED. cj3 12:39 Leyda Mensah, RN is Primary Nurse. aa5 12:47 César Cohn MD is Attending Physician. rt 12:47 Triage completed. cm10 12:49 Arm band placed on right wrist. Patient placed in an exam room, on a stretcher, on cm10 pulse oximetry. 12:52 Patient has correct armband on for positive identification. Bed in low position. Call aa5 light in reach. Side rails up X2. Adult w/ patient. Client placed on continuous cardiac and pulse oximetry monitoring. NIBP monitoring applied. soot blower on. Pulse ox on. NIBP on. 12:52 Initial lab(s) drawn, by me, sent to lab. T\T\S collected, blood band applied to patient. aa5 Inserted saline lock: 20 gauge in left forearm, using aseptic technique. Blood collected. Flushed with 10 mL NS. 14:05 CT Chest, Abdomen, Pelvis - W/Contrast In Process Unspecified. EDMS 14:22 No provider procedures requiring assistance completed. aa5 14:44 Consent for blood and/or blood product transfusion explained by staff, signed by aa5 patient. 16:50 Yung Allen MD is Hospitalizing Provider. rt 18:15 Patient admitted, IV remains in place. aa5 Administered Medications: No medications were administered Medication: 14:21 VIS not applicable for this client. aa5 Output: 14:17 Urine: 600ml (Voided); Total: 600ml. aa5 14:55 Urine: 500ml (Voided); Total: 1100ml. aa5 15:56 Urine: 550ml (Voided); Total: 1650ml. aa5 17:23 Urine: 500ml (Voided); Total: 2150ml. aa5 Outcome: 16:50 Decision to Hospitalize by Provider. rt 18:15 Admitted to Tele accompanied by tech, via wheelchair, with chart, aa5 18:15 Condition: stable 18:15 Instructed on the need for admit, Demonstrated understanding of instructions, 18:18 Patient left the ED. aa5 Signatures: Dispatcher [employer] EDMS Leyda Mensah RN RN aa5 Kin Forrester RN RN jl7 César Cohn MD MD rt Stefanie John RN RN cm10 Cindy Pineda cj3 Corrections: (The following items were deleted from the chart) 14:22 12:55 Patient has correct armband on for positive identification. Bed in low position. aa5 Call light in reach. Side rails up X2. Adult w/ patient. aa5 14:22 12:55 Client placed on continuous cardiac and pulse oximetry monitoring. NIBP aa5 monitoring applied. soot blower on. Pulse ox on. NIBP on. aa5 15:48 15:40 Reassessment: RBC Unit #1: started infusion at 1510, starting rate 50mls/hr and aa5 currently infusing at 150mls/hr, no s/s of transfusion reaction noted or reported, pt tolerating well. . aa5 18:22 12:55 General: Appears comfortable, Behavior is calm, cooperative, aa5 aa5 18:22 12:55 Respiratory: Airway is patent Respiratory effort is even, unlabored, Respiratory aa5 pattern is regular, symmetrical, aa5
--- NOTE | 2025-02-01 16:51 | EDPHYS ---
Physician Documentation [facility] Name: Maximiliano Robison Age: 74 yrs Sex: Male : 1950 Arrival Date: 02/01/2025 Time: 12:28 Bed 8 Private MD: ED Physician César Cohn HPI: 02/01 20:22 This 74 yrs old Male presents to ER via Ambulatory with complaints of Abnormal Lab rt Results. 20:22 Patient presents to the ED with reported low hemoglobin on outpatient labs to 6. rt Reports feeling weak and fatigued somewhat short of breath but denies other acute complaints at this time, symptoms are moderate severity, no other aggravating alleviating factors, of note, patient states that he did fall, landing onto his left side about a week and a half ago. Denies any melena, blood in the stool.. Historical: - Allergies: 12:47 Codeine; cm10 12:47 Morphine; cm10 - Home Meds: 15:00 Eliquis oral [Active]; aa5 - PMHx: 12:47 Cancer Prostate and colon; Congestive heart failure; COPD; Hyperlipidemia; Hypertension;cm10 15:00 Atrial fibrillation; Pancreas mass (being monitored); aa5 15:00 Home O2 PRN; aa5 - PSHx: 12:47 Colectomy; Valve Replacement; Lung Resection; cm10 - Immunization history:: Adult Immunizations up to date. - Infectious Disease History:: Denies. - Social history:: Smoking status: Patient/guardian denies using tobacco, the patient reports quitting approximately 6 years ago. - Family history:: not pertinent. ROS: 20:22 Cardiovascular: Negative for chest pain, palpitations, and edema, Abdomen/GI: Negative rt for abdominal pain, nausea, vomiting, diarrhea, and constipation, MS/Extremity: Negative for injury and deformity, Skin: Negative for injury, rash, and discoloration, 20:22 Constitutional: Positive for fatigue, Negative for fever, 20:22 Respiratory: Positive for shortness of breath, Negative for cough, Exam: 20:22 Constitutional: This is a well developed, well nourished patient who is awake, alert, rt and in no acute distress. Head/Face: Normocephalic, atraumatic. Chest/axilla: Normal chest wall appearance and motion. Nontender with no deformity. No lesions are appreciated. Cardiovascular: Regular rate and rhythm with a normal S1 and S2. No gallops, murmurs, or rubs. Normal PMI, no JVD. No pulse deficits. Respiratory: Lungs have equal breath sounds bilaterally, clear to auscultation and percussion. No rales, rhonchi or wheezes noted. No increased work of breathing, no retractions or nasal flaring. Abdomen/GI: Soft, non-tender, with normal bowel sounds. No distension or tympany. No guarding or rebound. No evidence of tenderness throughout. Skin: Warm, dry with normal turgor. Normal color with no rashes, no lesions, and no evidence of cellulitis. MS/ Extremity: Pulses equal, no cyanosis. Neurovascular intact. Full, normal range of motion. Neuro: Awake and alert, GCS 15, oriented to person, place, time, and situation. Cranial nerves II-XII grossly intact. Motor strength 5/5 in all extremities. Sensory grossly intact. Cerebellar exam normal. Normal gait. Vital Signs: 12:46 BP 129 / 56; Pulse 86; Resp 15; Temp 97.6(O); Pulse Ox 93% on R/A; Weight 84.1 kg; cm10 Height 5 ft. 10 in. ; Pain 0/10; 13:56 BP 125 / 55; Pulse 64; Resp 15; Pulse Ox 100% ; jl7 14:22 BP 141 / 62; Pulse 65; Resp 16 S; Pulse Ox 95% on R/A; aa5 15:00 BP 146 / 81; Pulse 67; Resp 18 S; Temp 97.8(O); Pulse Ox 95% on R/A; aa5 15:40 BP 137 / 73; Pulse 67; Resp 20; Temp 98.4(O); Pulse Ox 95% on R/A; aa5 17:10 BP 144 / 62; Pulse 68; Resp 19 S; Temp 98.2(O); Pulse Ox 99% on 2 lpm NC; aa5 17:23 BP 143 / 62; Pulse 67; Resp 18 S; Temp 98.3(O); Pulse Ox 100% on 2 lpm NC; aa5 12:46 Body Mass Index 26.60 (84.10 kg, 177.8 cm) cm10 12:46 Pain Scale: Adult cm10 MDM: 12:49 Medical Screening Exam initiated rt 20:22 Differential Diagnosis Symptomatic anemia, internal bleeding, GI bleed, splenic rt laceration. Data reviewed: vital signs, nurses notes, lab test result(s), radiologic studies. Consideration of Admission/Observation Patient was admitted/placed on observation. Management of patient was discussed with the following: Primary Care Provider: Agrees to admit. I considered the following discharge prescriptions or medication management in the emergency department Medications were administered in the Emergency Department. See MAR. Independent interpretation of the following test(s) in the Emergency Department CT Scan: My interpretation is No splenic laceration seen on interpretation of CT scan images. Care significantly affected by the following chronic conditions: Congestive Heart Failure. Counseling: I had a detailed discussion with the patient and/or guardian regarding the historical points, exam findings, and any diagnostic results supporting the discharge/admit diagnosis, lab results, radiology results, the need for further work-up and treatment in the hospital. Response to treatment: the patient's symptoms have mildly improved after treatment. 02/01 12:51 Order name: CBC with Diff; Complete Time: 13:59 aa5 02/01 12:51 Order name: Basic Metabolic Panel; Complete Time: 13:44 aa5 02/01 12:51 Order name: Type And Screen aa5 02/01 13:02 Order name: LFT's; Complete Time: 13:44 rt 02/01 13:53 Order name: ABO/RH no charge; Complete Time: 13:55 EDMS 02/01 13:59 Order name: CBC Smear Scan; Complete Time: 13:59 EDMS 02/01 14:03 Order name: Packed RBC Leukored EDMS 02/01 13:02 Order name: CT Chest, Abdomen, Pelvis - W/Contrast; Complete Time: 14:57 rt 02/01 12:51 Order name: IV; Complete Time: 12:52 aa5 Administered Medications: No medications were administered Disposition Summary: 02/01/25 16:50 Hospitalization Ordered Notes: Hospitalization Status: Observation rt Provider: Yung Allen rt Location: Telemetry/MedSurg (observation) rt Condition: Stable rt Problem: new rt Symptoms: have improved rt Bed/Room Type: Standard rt Room Assignment: 206(02/01/25 17:01) eb Diagnosis - Symptomatic anemia rt Forms: - Medication Reconciliation Form rt - SBAR form rt - Leadership Thank You Letter rt Critical care time excluding procedures: 20:22 Critical care time: Bedside Care: 30 minutes, Consultation: 5 minutes. Total time: 35 rt minutes Signatures: Dispatcher [employer] EDLeyda Eli, RN RN aa5 Tyesha Duque Ryan, MD MD rt Stefanie John RN RN cm10 Corrections: (The following items were deleted from the chart) 12:52 12:52 CBC+H.LAB.BRZ ordered. EDMS EDMS 12:52 12:52 BASIC METABOLIC PANEL+C.LAB.BRZ ordered. EDMS EDMS 12:52 12:52 TYPE AND SCREEN+BB.LAB.BRZ ordered. EDMS EDMS 13:03 13:03 HEPATIC FUNCTION+C.LAB.BRZ ordered. EDMS EDMS 13:03 13:03 Chest Abdomen Pelvis W Con+CT.RAD.BRZ ordered. EDMS EDMS 17:01 16:50 rt eb
[2025-02-01 22:04] VITALS: BMI 26.6
[2025-02-01 23:21] VITALS: O2SAT 96
[2025-02-02] MEDS: NA CHLORIDE 0.9% 1,000 ML ONE (00:02)
[2025-02-02 02:39] LABS: Specific Gravity 1.027 (1.005-1.030); Sqamous Epithelial None Seen /HPF (None Seen); Urine Bacteria None Seen /HPF (<20); Urine Bilirubin NEGATIVE (Negative); Urine Blood Negative (Negative); Urine Clarity Clear (Clear); Urine Color Light-Yellow (Yellow); Urine Culture Reflex Order NOT NEEDED; Urine Glucose 4+ (Over) (Negative); Urine Ketones NEGATIVE (Negative); Urine Microscopic Reflex YN ORDER UMIC; Urine Nitrite NEGATIVE (Negative); Urine Protein 1+ (Negative); Urine RBC <5 /HPF (None Seen); Urine Urobilinogen Normal (Normal); Urine WBC <5 /HPF (<5); Urine pH 6.5 (5.0-7.0)
[2025-02-02 06:30] LABS: Absolute Eosinophils 0.2 K/uL (0-0.5); Absolute Lymphocytes (CBC) 0.8 K/uL (0.7-4.9); Absolute Monocytes 0.9 K/uL (0.1-1.3); Absolute Neutrophil 10.7 K/uL (1.8-8.0); Basophils % 0.3 % (0-1.3); Eosinophils % 1.2 % (0-4.4); Hematocrit 26.9 % (39.6-49.0); Hemoglobin 8.7 g/dL (13.6-17.9); Lymphocytes % 6.1 % (15.3-44.8); MCHC 32.4 g/dL (32.0-36.0); MPV 7.2 fL (7.6-11.3); Neutrophils % 85.4 % (41.7-73.7); Nucleated Red Blood Cells % 0.1 % (0-0); Platelets 361 thou/uL (152-406); RBC Red Blood Cell Count 3.79 M/uL (4.33-5.43); Red Cell Distribution Width 20.9 % (12.1-15.2)
[2025-02-02 08:25] VITALS: BP 129/59; TEMP 97.7
[2025-02-02] MEDS ORDERED: ALBUTEROL INHALER 200 PUFF/6.7 GM IH PRN (08:29)
[2025-02-02 08:46] LABS: Anisocytosis 1+; Blood Morphology Comment NOTED (NOT SEEN); Hypochromasia 1+; Microcytosis 1+; Platelet Estimate ADEQ; Polychromasia SLIGHT; White Blood Cell Scan OK (OK)
[2025-02-02] MEDS: [UNRECOGNIZED DRUG - OTHER] PO SCH (09:00)
[2025-02-02] MEDS: HOME MED 1 EA UNK (Dapagliflozin Propanediol [Farxiga] 5 MG Tablet) PO SCH (09:00)
[2025-02-02] MEDS: HOME MED 1 EA UNK (Omeprazole [Prilosec] 40 MG Capsule.Dr) PO SCH (09:00)
[2025-02-02] MEDS: HOME MED 1 EA UNK (Olmesartan Medoxomil [Olmesartan Medoxomil] 40 MG Tablet) PO SCH (09:00)
[2025-02-02] MEDS: DUTASTERIDE 0.5 MG PO SCH (09:00)
[2025-02-02] MEDS: HOME MED 1 EA UNK (Fluticasone/Umeclidin/Vilanter [Trelegy Ellipta 100-62.5-25] Blst.W.Dev IH SCH (09:00)
[2025-02-02] MEDS: HOME MED 1 EA UNK (Cyanocobalamin (Vitamin B-12) [Vitamin B12] 2,500 MCG Tab.Chew) PO SCH (09:00)
[2025-02-02] MEDS: FUROSEMIDE 20 MG TABLET PO SCH (09:47)
[2025-02-02] MEDS: allopurinoL 300 MG TAB PO SCH (09:47)
[2025-02-02] MEDS: AMLODIPINE 10 MG TAB PO SCH (09:47)
[2025-02-02] MEDS: ASPIRIN 81 MG CHEWABLE TABLET PO SCH (09:47)
[2025-02-02] MEDS: SPIRONOLACTONE 25 MG TABLET PO SCH (09:47)
[2025-02-02] MEDS: TAMSULOSIN 0.4 MG SR CAP PO SCH (09:48)
[2025-02-02] MEDS: METOPROLOL XL 100 MG TAB PO SCH (09:48)
[2025-02-02] MEDS: AMIODARONE HCL 200 MG TAB PO SCH (09:48)
[2025-02-02] MEDS ORDERED: ATORVASTATIN 20 MG TAB PO SCH (21:00)
== END 2025-02-02 11:33 | disposition home or self-care (01) ==
LOC: ER 12:28 → ERHOLD 16:53 → 2ND 17:10
PROVIDERS: ADMIT Internal Medicine; ATTEND Internal Medicine
DX: D64.9 Anemia, unspecified (principal); Z85.038 Personal history of other malignant neoplasm of large intestine; E11.59 Type 2 diabetes mellitus with other circulatory complications; F17.200 Nicotine dependence, unspecified, uncomplicated; Z95.5 Presence of coronary angioplasty implant and graft; G47.33 Obstructive sleep apnea (adult) (pediatric); E11.42 Type 2 diabetes mellitus with diabetic polyneuropathy; J44.9 Chronic obstructive pulmonary disease, unspecified; I35.0 Nonrheumatic aortic (valve) stenosis; R94.39 Abnormal result of other cardiovascular function study; E11.621 Type 2 diabetes mellitus with foot ulcer; L97.519 Non-pressure chronic ulcer of other part of right foot with unspecified severity; Z88.5 Allergy status to narcotic agent; Z88.8 Allergy status to other drugs, medicaments and biological substances; Z79.82 Long term (current) use of aspirin
CPT/HCPCS: 36430; 85025 ×2; 81001; 80048; 36415; 86900; 86850; 86901; 80076; 86920 ×2; 71260; 74177; 99285; Q9967; J3535; G0378 ×2; P9016 ×2; J7050; J7030

== ENCOUNTER 2025-03-06 07:49 | Day surgery (SDC) | payer OTHER, MEDICARE ==
[2025-03-04 11:39] LABS: Absolute Basophils 0.1 K/uL (0-0.5); Absolute Eosinophils 0.1 K/uL (0-0.5); Absolute Lymphocytes (CBC) 0.7 K/uL (0.7-4.9); Absolute Monocytes 0.8 K/uL (0.1-1.3); Absolute Neutrophil 10.8 K/uL (1.8-8.0); Basophils % 0.6 % (0-1.3); Eosinophils % 0.7 % (0-4.4); Hematocrit 28.1 % (39.6-49.0); Hemoglobin 8.8 g/dL (13.6-17.9); Lymphocytes % 5.8 % (15.3-44.8); MCH 20.7 pg (27.0-35.0); MCHC 31.5 g/dL (32.0-36.0); MCV 65.7 fL (80-100); MPV 7.3 fL (7.6-11.3); Monocytes % 6.4 % (3.3-12.3); Neutrophils % 86.5 % (41.7-73.7); Platelets 351 thou/uL (152-406); RBC Red Blood Cell Count 4.27 M/uL (4.33-5.43); Red Cell Distribution Width 22.2 % (12.1-15.2)
[2025-03-04 11:51] LABS: Anion Gap 10.9 mEq/L (5.0-15.0); Potassium 3.9 mEq/L (3.5-5.1)
[2025-03-04 14:13] LABS: Blood Morphology Comment NOTED (NOT SEEN); Platelet Estimate ADEQ; White Blood Cell Scan OK (OK)
[2025-03-04 14:14] LABS: Anisocytosis 2+; Hypochromasia 1+; Microcytosis 1+
--- NOTE | 2025-03-05 12:21 | EKG ---
Test Date: 2025-03-04 Test Time: 11:22:29 Sports Team Manager: CARLOS MEASUREMENT RESULTS: Intervals: Rate: 76 UT: 240 QRSD: 166 QT: 434 QTc: 488 [place]: P: 78 UT: 240 QRS: -83 T: 65 INTERPRETIVE STATEMENTS: Sinus rhythm with 1st degree AV block Left axis deviation Right bundle branch block Abnormal ECG Compared to ECG 05/28/2024 16:18:43 Left-axis deviation now present Ventricular premature complex(es) no longer present Electronically Signed On 03-05-25 12:19:55 CDT by Stephen Tovar
[2025-03-06] MEDS: NA CHLORIDE 0.9% 1,000 ML ONE (08:35)
[2025-03-06 08:52] VITALS: TEMP 97.2
[2025-03-06] MEDS ORDERED: propofoL 200 MG/20 ML VIAL IV ONE (08:57)
[2025-03-06] MEDS ORDERED: LIDOCAINE 1% MPF 5 ML VIAL ONE (08:57)
[2025-03-06 10:25] VITALS: BP 148/79; O2SAT 96
== END 2025-03-06 10:12 | disposition home or self-care (01) ==
LOC: OR 07:49
PROVIDERS: ATTEND Internal Medicine Gastroenterology
PROC: 0DB78ZX Excision of Stomach, Pylorus, Via Natural or Artificial Opening Endoscopic, Diagnostic (ICD-10-PCS; 2025-03-06)
PROC: 0DB68ZX Excision of Stomach, Via Natural or Artificial Opening Endoscopic, Diagnostic (ICD-10-PCS; 2025-03-06)
PROC: 0DB38ZX Excision of Lower Esophagus, Via Natural or Artificial Opening Endoscopic, Diagnostic (ICD-10-PCS; principal; 2025-03-06 09:00)
DX: D50.9 Iron deficiency anemia, unspecified (principal); K29.50 Unspecified chronic gastritis without bleeding
CPT/HCPCS: 93005; 85025; 80048; 36415; 88312; 82947; 88305; 43239; J2704; J2003; J7030

== ENCOUNTER 2025-07-16 00:08 | Inpatient (IN) | payer OTHER, MEDICARE ==
[2025-07-16 00:48] LABS: Absolute Lymphocytes (CBC) 0.2 K/uL (0.7-4.9); Hematocrit 27.3 % (39.6-49.0); Hemoglobin 8.6 g/dL (13.6-17.9); MCH 21.3 pg (27.0-35.0); MCHC 31.7 g/dL (32.0-36.0); MCV 67.3 fL (80-100); MPV 7.0 fL (7.6-11.3); Nucleated RBC Absolute Count 0.0 (0-0); Nucleated Red Blood Cells % 0.0 % (0-0); RBC Red Blood Cell Count 4.05 M/uL (4.33-5.43); White Blood Count 16.90 thou/uL (4.3-10.9)
[2025-07-16 00:51] LABS: Arterial Blood Carboxyhemoglob 0.5 % (0.0-1.5); Blood Gas Inspired Oxygen 90.0 %; Blood Gas Oxyhemoglobin 96.4 % (94.0-97.0); Blood O2 Saturation 99.9 % (92.0-98.5)
[2025-07-16 00:54] LABS: Influenza A Ag Negative; Influenza B Ag Negative; SARS-CoV-2 Antigen Rapid Res Negative (Negative)
[2025-07-16 01:05] LABS: ALT/SGPT 15.0 U/L (16-61); AST/SGOT 11.0 U/L (15-37); Albumin 2.2 g/dL (3.4-5.0); Albumin/Globulin Ratio 0.6 (1.1-1.8); Alkaline Phosphatase 117.0 U/L (45-117); Anion Gap 12.4 mEq/L (5.0-15.0); BUN Blood Urea Nitrogen 23.0 mg/dL (7-18); Bilirubin Indirect, Calculated 0.2 mg/dL (0.2-0.8); Globulin 3.6 g/dL (2.3-3.5); Glucose Level 345.0 mg/dL (74-106); Magnesium 2.0 mg/dL (1.6-2.4); NT PRO-BNP 10021.0 pg/mL (<450); Potassium 3.4 mEq/L (3.5-5.1); Troponin High Sensitivity 54.6 pg/mL (<58.9)
[2025-07-16 01:11] LABS: PT Prothrombin Time 13.6 SECONDS (10-13.0); Protime INR 1.21
[2025-07-16 01:38] LABS: Anisocytosis 2+; Blood Morphology Comment NOTED (NOT SEEN); Differential Total Cells Count 100; Microcytosis 2+; Segmented Neutrophils 82 % (40-80)
[2025-07-16] MEDS ORDERED: CEFEPIME 2 GM VIAL ONE (01:59)
[2025-07-16] MEDS ORDERED: NA CHLORIDE 0.9% 100 ML ONE (02:00)
[2025-07-16] MEDS ORDERED: NA CHLORIDE 0.9% 250 ML ONE (02:00)
[2025-07-16] MEDS ORDERED: VANCOMYCIN 1 GM/VIAL ONE (02:00)
--- NOTE | 2025-07-16 02:01 | ER ---
Nurse's Notes [facility] Name: Maximiliano Robison Age: 75 yrs Sex: Male : 1950 Arrival Date: 07/16/2025 Time: 00:08 Bed 3 Private MD: Diagnosis: Pneumonia, CHF, BiPAP, respiratory distress Presentation: 07/16 00:12 Chief complaint: Patient states: Pt to ed c/o sob and weakness. pt states he was going mf3 to bathroom at home and felt weak and stated he decided to sit down. Upon arrival, ems states pt O2 was 70%. No change with NC, so pt placed on nonrebreather. Upon arrival pt 02 set 78 room air. Respiratory called for Bipap. Coronavirus screen: Client denies travel out of the [place] in the last 14 days. At this time, the client does not indicate any symptoms associated with coronavirus-19. Ebola Screen: No symptoms or risks identified at this time. 00:12 Method Of Arrival: EMS: [place] [id number] 00:33 Initial Sepsis Screen: Does the patient meet any 2 criteria? No. Patient's initial 3 sepsis screen is negative. Does the patient have a suspected source of infection? No. Patient's initial sepsis screen is negative. Risk Assessment: Do you want to hurt yourself or someone else? Patient reports no desire to harm self or others. Onset of symptoms was July 16, 2025. 00:33 Acuity: STEPHANIA 3 mf3 Triage Assessment: 00:45 General: Appears distressed, Behavior is cooperative, agitated, anxious. 3 00:45 Pain: Denies pain. Neuro: Level of Consciousness is awake, alert, obeys commands, mf3 Oriented to person, place, situation. Cardiovascular: Heart tones S1 S2 Capillary refill < 3 seconds. Respiratory: Airway is patent Trachea midline Respiratory effort is labored, Respiratory pattern is symmetrical. GI: Bowel sounds present X 4 quads. : No signs and/or symptoms were reported regarding the genitourinary system. Derm: Skin is intact. Historical: - Allergies: 01:14 Codeine; mf3 01:14 Morphine; mf3 - PMHx: 01:14 Atrial fibrillation; Congestive heart failure; Cancer Prostate and colon; Home O2 PRN; mf3 COPD; Hypertension; Hyperlipidemia; Pancreas mass (being monitored); - PSHx: 01:14 Lung Resection; Colectomy; Valve replacement; mf3 - Immunization history:: Adult Immunizations up to date. - Infectious Disease History:: Denies. - Social history:: Smoking status: unknown. Screenin:24 [facility] ED Fall Risk Assessment (Adult) History of falling in the last 3 months, mf3 including since admission Yes- single mechanical fall (1 pt) Confusion or Disorientation No (0 pts) Intoxicated or Sedated No (0 pts) Impaired Gait Yes (1 pt) Mobility Assist Device Used Yes (1 pt) Altered Elimination No (0 pt) Score/Fall Risk Level 3 or more points = High Risk Oriented to surroundings, Educated pt \T\ family on fall prevention, incl call for assistance when getting out of bed, Hourly rounding (assess needs \T\ fall precautionary measures) done. Abuse screen: Denies threats or abuse. Denies injuries from another. Nutritional screening: No deficits noted. Tuberculosis screening: No symptoms or risk factors identified. Never had TB. Assessment: 01:17 Reassessment: see triage note. 3 Vital Signs: 00:33 BP 131 / 61; Pulse 99; Resp 21; Pulse Ox 98% on Non-rebreather mask; Weight 81.56 kg; 3 Height 5 ft. 10 in. ; Pain 0/10; 01:00 BP 138 / 60; Pulse 99; Resp 22; Pulse Ox 100% on BiPAP; mf3 01:15 BP 116 / 69; Pulse 91; Resp 19; Pulse Ox 100% on BiPAP; mf3 02:38 BP 146 / 77; Pulse 91; Resp 18; Pulse Ox 100% on BiPAP; mf3 00:33 Body Mass Index 25.80 (81.56 kg, 177.8 cm) mf3 00:33 Pain Scale: Adult 3 Vitals: 01:15 Cardiac Rhythm Assessment Irregular. 3 ED Course: 00:10 Patient arrived in ED. rv1 00:12 Cee Chandler, RN is Primary Nurse. mf3 00:13 Je Reyes MD is Attending Physician. sp3 00:29 EKG done, by ED staff, reviewed by Je Reyes MD. oe 00:45 No provider procedures requiring assistance completed. Inserted saline lock: 20 gauge mf3 in left antecubital area, using aseptic technique. Blood collected. Flushed with 10 mL NS. 00:45 Arm band placed on right wrist. mf3 00:49 XRAY Chest (1 view) In Process Unspecified. EDMS 01:14 Triage completed. mf3 01:24 Patient has correct armband on for positive identification. Provided Education on: pt mf3 educated on plan of care. 02:00 Yung Allen MD is Hospitalizing Provider. sp3 02:31 Blood Culture Adult (2) Sent. mf3 02:31 Basic Metabolic Panel Sent. mf3 02:31 Troponin High Sensitivity Sent. mf3 02:31 NT PRO-BNP Sent. mf3 02:31 Lactate w/ 2H reflex if indic. Sent. mf3 02:55 Patient admitted, IV remains in place. cp4 Administered Medications: 02:14 Drug: Cefepime IVPB 2 grams IVPB at 200 ml/hr once over 30 mins; (mix in NS 100 mL) tb4 Route: IVPB; Rate: 200 ml/hr; Infused Over: 30 mins; Site: left antecubital; 02:56 Follow up: IV Status: Infusion continued upon admission cp4 02:16 Drug: vancoMYCIN IVPB 1 grams IVPB once over 2 hrs Route: IVPB; Infused Over: 2 hrs; 3 Site: right antecubital; 02:56 Follow up: IV Status: Infusion continued upon admission cp4 02:31 Drug: Furosemide IVP 20 mg IVP once; give over 2 minutes Route: IVP; Site: right 3 antecubital; 02:56 Follow up: Response: No adverse reaction cp4 Medication: 01:24 VIS not applicable for this client. 3 Outcome: 02:01 Decision to Hospitalize by Provider. sp3 02:55 Admitted to ICU accompanied by nurse, via stretcher, room 7, with oxygen, on monitor, cp4 with chart, 02:55 Condition: stable 02:55 Instructed on the need for admit, 02:58 Patient left the ED. cp4 Signatures: Dispatcher [employer] EDMS Luis E Crawford Setul, MD MD sp3 Alexus Laureano Christina cp4 Romina David RN RN tb4 Cee Chandler RN RN 3
--- NOTE | 2025-07-16 02:01 | EDPHYS ---
Physician Documentation [facility] Name: Maximiliano Robison Age: 75 yrs Sex: Male : 1950 Arrival Date: 07/16/2025 Time: 00:08 Bed 3 Private MD: ED Physician Je Reyes HPI: 07/16 00:19 This 75 yrs old Male presents to ER via Unassigned with complaints of shortness of sp3 breath. 00:28 This 75 yrs old Male presents to ER via Unassigned with complaints of SOB. sp3 00:28 75-year-old male with history of COPD, CHF, atrial fibrillation, hypertension, sp3 hyperlipidemia, pancreatic mass being monitored only, and prostate cancer now presents to the ED with chief complaint shortness of breath acute on chronic. EMS states the patient had an extremely long cord connecting to his oxygen source. Patient's oxygenation on EMS arrival was in the upper 60s to low 70s. Patient denies any chest pain, fever, cough, headache, abdominal pain, vomiting, diarrhea, back pain, syncope, or any other signs or symptoms on ROS at this time. He just gets extremely short of breath.. Historical: - Allergies: 01:14 Codeine; mf3 01:14 Morphine; mf3 - PMHx: 01:14 Atrial fibrillation; Congestive heart failure; Cancer Prostate and colon; Home O2 PRN; mf3 COPD; Hypertension; Hyperlipidemia; Pancreas mass (being monitored); - PSHx: 01:14 Lung Resection; Colectomy; Valve replacement; mf3 - Immunization history:: Adult Immunizations up to date. - Infectious Disease History:: Denies. - Social history:: Smoking status: unknown. ROS: 00:29 Constitutional: Negative for fever, chills, and weight loss, Eyes: Negative for injury, sp3 pain, redness, and discharge, Neck: Negative for injury, pain, and swelling, Cardiovascular: Negative for chest pain, palpitations, and edema, Abdomen/GI: Negative for abdominal pain, nausea, vomiting, diarrhea, and constipation, Back: Negative for injury and pain, Skin: Negative for injury, rash, and discoloration, Neuro: Negative for headache, weakness, numbness, tingling, and seizure, Psych: Negative for depression, anxiety, suicide ideation, homicidal ideation, and hallucinations, Allergy/Immunology: Negative for hives, rash, and allergies, 00:29 All other systems are negative, Exam: 00:29 Constitutional: This is a well developed, well nourished patient who is awake, alert, sp3 and in no acute distress. Head/Face: Normocephalic, atraumatic. Eyes: Pupils equal round and reactive to light, extra-ocular motions intact. Lids and lashes normal. Conjunctiva and sclera are non-icteric and not injected. Cornea within normal limits. Periorbital areas with no swelling, redness, or edema. Neck: Trachea midline, no thyromegaly or masses palpated, and no cervical lymphadenopathy. Supple, full range of motion without nuchal rigidity, or vertebral point tenderness. No Meningismus. Chest/axilla: Normal chest wall appearance and motion. Nontender with no deformity. No lesions are appreciated. Cardiovascular: Regular rate and rhythm with a normal S1 and S2. No gallops, murmurs, or rubs. Normal PMI, no JVD. No pulse deficits. Abdomen/GI: Soft, non-tender, with normal bowel sounds. No distension or tympany. No guarding or rebound. No evidence of tenderness throughout. Back: No spinal tenderness. No costovertebral tenderness. Full range of motion. Skin: Warm, dry with normal turgor. Normal color with no rashes, no lesions, and no evidence of cellulitis. MS/ Extremity: Pulses equal, no cyanosis. Neurovascular intact. Full, normal range of motion. Neuro: Awake and alert, GCS 15, oriented to person, place, time, and situation. Cranial nerves II-XII grossly intact. Motor strength 5/5 in all extremities. Sensory grossly intact. Cerebellar exam normal. Normal gait. Psych: Awake, alert, with orientation to person, place and time. Behavior, mood, and affect are within normal limits. 00:29 Respiratory: Coarse breath sounds bilaterally. Patient oxygenation comes up on nonrebreather., 00:29 Musculoskeletal/extremity: Pedal edema bilaterally noted.. 00:50 ECG was reviewed by the Attending Physician. EKG demonstrates sinus tachycardia at 100 sp3 bpm with right bundle branch block and nonspecific diffuse ST/T changes without evidence of acute ischemia. QTc noted to be 508. Vital Signs: 00:33 BP 131 / 61; Pulse 99; Resp 21; Pulse Ox 98% on Non-rebreather mask; Weight 81.56 kg; 3 Height 5 ft. 10 in. ; Pain 0/10; 01:00 BP 138 / 60; Pulse 99; Resp 22; Pulse Ox 100% on BiPAP; 3 01:15 BP 116 / 69; Pulse 91; Resp 19; Pulse Ox 100% on BiPAP; 3 02:38 BP 146 / 77; Pulse 91; Resp 18; Pulse Ox 100% on BiPAP; 3 00:33 Body Mass Index 25.80 (81.56 kg, 177.8 cm) 3 00:33 Pain Scale: Adult [facility] MDM: 00:14 Medical Screening Exam initiated sp3 00:30 Data reviewed: vital signs, nurses notes, old medical records, lab test result(s), EKG, sp3 radiologic studies. ED course: 75-year-old male with extensive PMH above now with shortness of breath recurrent in nature. Differential diagnosis includes COPD, CHF, ACS, pneumonia, bronchitis, viral illness, among others. Workup will include chest x-ray, EKG, general labs, viral swabs, ABG, and BiPAP. Disposition probable admission with any indicated medications ordered once workup is complete.. 01:59 ED course: Patient with right lower quadrant infiltrates, leukocytosis with bandemia sp3 and elevated BNP. Will treat with antibiotics, obtain blood cultures, administer small dose of Lasix, and recheck CBC in the morning given hemoglobin 8.6. All this will need to be balanced and we will start by treating the infection and lightly diuresing. Blood pressure stable at 116/69. Patient will be admitted to Dr. Allen service and he has been notified via electronic messaging.. 07/16 00:14 Order name: Basic Metabolic Panel; Complete Time: :39 sp3 07/16 00:14 Order name: CBC with Diff; Complete Time: sp3 07/16 00:14 Order name: LFT's; Complete Time: sp3 07/16 00:14 Order name: Magnesium; Complete Time: sp3 07/16 00:14 Order name: NT PRO-BNP; Complete Time: sp3 07/16 00:14 Order name: PT-INR; Complete Time: sp3 07/16 00:14 Order name: Troponin HS; Complete Time: 01:39 sp3 07/16 00:14 Order name: ABG; Complete Time: 01:39 sp3 07/16 00:19 Order name: COVID-19 Ag + Flu A+B Ag; Complete Time: 01:39 sp3 07/16 00:52 Order name: Manual Differential; Complete Time: 01:39 EDMS 07/16 01:42 Order name: Blood Culture Adult (2) sp3 07/16 02:12 Order name: Basic Metabolic Panel EDMS 07/16 02:12 Order name: CBC with Manual Differential EDMS 07/16 02:12 Order name: NT PRO-BNP EDMS 07/16 02:12 Order name: Troponin High Sensitivity EDMS 07/16 02:12 Order name: Troponin High Sensitivity EDMS 07/16 02:12 Order name: Troponin High Sensitivity EDMS 07/16 02:23 Order name: Lactate w/ 2H reflex if indic. vc1 07/16 00:14 Order name: BIPAP sp3 07/16 00:14 Order name: XRAY Chest (1 view) sp3 07/16 02:12 Order name: Chest Single View EDMS 07/16 00:14 Order name: Cardiac monitoring; Complete Time: 00:24 sp3 07/16 00:14 Order name: EKG - Nurse/Tech; Complete Time: 00:24 sp3 07/16 00:14 Order name: IV Saline Lock; Complete Time: 00:24 sp3 07/16 00:14 Order name: Labs collected and sent; Complete Time: 00:24 sp3 07/16 00:14 Order name: O2 Per Protocol; Complete Time: 00:24 sp3 07/16 00:14 Order name: O2 Sat Monitoring; Complete Time: 00:24 sp3 Administered Medications: 02:14 Drug: Cefepime IVPB 2 grams IVPB at 200 ml/hr once over 30 mins; (mix in NS 100 mL) tb4 Route: IVPB; Rate: 200 ml/hr; Infused Over: 30 mins; Site: left antecubital; 02:56 Follow up: IV Status: Infusion continued upon admission cp4 02:16 Drug: vancoMYCIN IVPB 1 grams IVPB once over 2 hrs Route: IVPB; Infused Over: 2 hrs; mf3 Site: right antecubital; 02:56 Follow up: IV Status: Infusion continued upon admission cp4 02:31 Drug: Furosemide IVP 20 mg IVP once; give over 2 minutes Route: IVP; Site: right mf3 antecubital; 02:56 Follow up: Response: No adverse reaction cp4 Disposition: 02:01 Critical Care:. sp3 Disposition Summary: 07/16/25 02:01 Hospitalization Ordered Notes: Hospitalization Status: Inpatient Admission sp3 Provider: Yung Allen sp3 Condition: Stable sp3 Problem: an acute exacerbation sp3 Symptoms: have worsened sp3 Bed/Room Type: Standard sp3 Location: Intensive Care Unit(07/16/25 02:11) rv1 Room Assignment: 7-(07/16/25 02:11) rv1 Diagnosis - Pneumonia, CHF, BiPAP, respiratory distress sp3 Forms: - Medication Reconciliation Form sp3 - SBAR form sp3 - Leadership Thank You Letter sp3 Critical care time excluding procedures: 02:01 Critical care time: Bedside Care: 15 minutes, Consultation: 10 minutes, Family sp3 Intervention: 10 minutes. Total time: 35 minutes Signatures: Dispatcher [employer] EDRI Je Reyes MD MD sp3 Alexus Laureano rv1 Romina David, RN RN tb4 Cee Chandler RN RN mf3 Zoë Buchanan cp4 Corrections: (The following items were deleted from the chart) 00:15 00:15 BASIC METABOLIC PANEL+C.LAB.BRZ ordered. EDRI EDRI 00:15 00:15 CBC+H.LAB.BRZ ordered. EDRI EDRI 00:15 00:15 HEPATIC FUNCTION+C.LAB.BRZ ordered. EDRI EDRI 00:15 00:15 MAGNESIUM+C.LAB.BRZ ordered. EDRI EDRI 00:15 00:15 PROBNP+C.LAB.BRZ ordered. EDRI EDRI 00:15 00:15 PROTIME (+INR)+COAG.LAB.BRZ ordered. EDRI EDRI 00:15 00:15 Troponin High Sensitivity+C.LAB.BRZ ordered. EDRI EDRI 00:15 00:15 Chest Single View+RAD.RAD.BRZ ordered. EDRI EDRI 00:15 00:15 Arterial Blood Gas+RC.LAB.BRZ ordered. [facility] EDRI 02:11 02:01 Telemetry/MedSurg (Inpatient) sp3 rv1 02:11 02:01 sp3 rv1
[2025-07-16] MEDS ORDERED: FUROSEMIDE 20 MG/ 2ML VIAL ONE (02:30)
[2025-07-16 03:40] VITALS: BMI 24.8
[2025-07-16] MEDS: VANCOMYCIN 1 GM in NA CHLORIDE 0.9% 250 ML IVPB ONE (03:48)
[2025-07-16 05:18] LABS: Absolute Lymphocytes (CBC) 0.4 K/uL (0.7-4.9); Hematocrit 27.8 % (39.6-49.0); Hemoglobin 8.8 g/dL (13.6-17.9); MCH 21.2 pg (27.0-35.0); MCHC 31.5 g/dL (32.0-36.0); MCV 67.3 fL (80-100); MPV 7.0 fL (7.6-11.3); Nucleated RBC Absolute Count 0.0 (0-0); Nucleated Red Blood Cells % 0.0 % (0-0); RBC Red Blood Cell Count 4.12 M/uL (4.33-5.43); White Blood Count 14.00 thou/uL (4.3-10.9)
[2025-07-16 05:44] LABS: Anion Gap 7.2 mEq/L (5.0-15.0); BUN Blood Urea Nitrogen 20.0 mg/dL (7-18); Glucose Level 303.0 mg/dL (74-106); NT PRO-BNP 9793.0 pg/mL (<450); Potassium 3.2 mEq/L (3.5-5.1)
[2025-07-16 05:49] LABS: Differential Total Cells Count 100; Segmented Neutrophils 83 % (40-80)
[2025-07-16 05:50] LABS: Anisocytosis 2+; Blood Morphology Comment NOTED (NOT SEEN); Microcytosis 2+; Ovalocytes 1+
--- NOTE | 2025-07-16 06:03 | RAD REPORT ---
EXAM: XR Chest, 1 View CLINICAL HISTORY: The patient is 75 years old and is Male; COPD TECHNIQUE: Frontal view of the chest. COMPARISON: April 16, 2025 FINDINGS: LUNGS: The lungs are hyperinflated with edematous change. Bullous formation scarring within the u pper lobes is noted. Superimposed pulmonary opacities are present most prominent within the right upper lobe. Atherosclerosis of the aorta is present. PLEURAL SPACE: Blunting of bilateral costophrenic angles is present. No pneumothorax. HEART: Prosthetic aortic valve is noted. No cardiomegaly. MEDIASTINUM: Unremarkable. Normal mediastinal contour. BONES/JOINTS: Multilevel degenerative change of the spine and shoulders is noted. No acute fractu re. UPPER ABDOMEN: Unremarkable as visualized. IMPRESSION: Extensive emphysematous changes of lungs with scarring and postsurgical change of the upper lung zo elier. Superimposed pulmonary opacities are noted most prominent within the right lower lobe suggesting developing infiltrate and pleural effusions, right greater than left. Electronically signed by: Nga Caraballo MD 07/16/2025 01:04 AM CDT Due to temporary technical issues with the [employer] reporting system, reports are being kristy d by the in-house radiologist without review as a courtesy to ensure prompt reporting the interpreting radiologist is fully responsible for the content of the report. Transcribed Date/Time: 07/16/2025 6:03 AM
[2025-07-16] MEDS ORDERED: COLCHICINE 0.6 MG TAB PO PRN (06:33)
[2025-07-16] MEDS ORDERED: HOME MED 1 EA UNK (Ipratropium/Albuterol Sulfate [Iprat-Albut 0.5-3(2.5) Mg/3 Ml] 3 ML Amp IH PRN (06:33)
[2025-07-16] MEDS: INSULIN REGULAR (HUMAN) 100 UNIT/ML SQ SCH (07:55)
[2025-07-16] MEDS: AMIODARONE HCL 200 MG TAB PO SCH (08:28)
[2025-07-16] MEDS: SPIRONOLACTONE 25 MG TABLET PO SCH ×2 (08:28→20:19)
[2025-07-16] MEDS: POTASSIUM CL SA 10 MEQ TAB PO ONE (08:28)
[2025-07-16] MEDS: METOPROLOL TAR 25 MG TAB PO SCH (08:29)
[2025-07-16] MEDS: SERTRALINE HCL 50 MG TAB PO SCH (08:29)
[2025-07-16] MEDS: AMLODIPINE 10 MG TAB PO SCH (08:30)
[2025-07-16] MEDS: FUROSEMIDE 20 MG TABLET PO SCH (08:30)
[2025-07-16] MEDS: ASPIRIN EC 81 MG TAB PO SCH (08:30)
[2025-07-16] MEDS: PANTOPRAZOLE 40MG TABLET PO SCH (08:30)
[2025-07-16] MEDS: HOME MED 1 EA UNK (Dapagliflozin Propanediol [Farxiga] 5 MG Tablet) PO SCH (08:31)
[2025-07-16] MEDS: CYANOCOBALAMIN 1,000 MCG TAB PO SCH (08:31)
[2025-07-16] MEDS ORDERED: ALBUTEROL 2.5 MG/3 ML NEB SOL NEB PRN (08:32)
[2025-07-16] MEDS ORDERED: IPRATROPIUM BROM 0.5MG/2.5ML IH PRN (08:32)
[2025-07-16] MEDS: CEFEPIME 1 GM in NA CHLORIDE 0.9% 100 ML IV SCH (08:32)
[2025-07-16] MEDS: DUTASTERIDE 0.5 MG GEL CAP PO SCH (08:32)
[2025-07-16] MEDS: FUROSEMIDE 20 MG/ 2ML VIAL IV ONE (08:33)
--- NOTE | 2025-07-16 11:34 | P.CNS ---
Date of Consult: 07/16/25 Chief Complaint: CHF History of Present Illness: Patient with PMH of diastolic heart failure, s/p ROGERS, AF s/p Watchman, CAD, presented with recent fall, denies chest pain, no palpitations, no syncope, report chronic WARD and bilateral lower extremities edema. Allergies codeine [Codeine] Adverse Reaction (Intermediate, Verified 08/09/24 08:24) Itching hydrocodone bitartrate [From Vicodin] Adverse Reaction (Intermediate, Verified 08/09/24 08:24) Hallucination hydromorphone HCl [From Dilaudid] Adverse Reaction (Intermediate, Verified 08/09/24 08:24) Hallucination morphine Adverse Reaction (Intermediate, Verified 08/09/24 08:24) Hallucination Home medications list reviewed: Yes Home Medications: Acetaminophen/Diphenhydramine [Tylenol Pm Exstr 500-25Mg Cplt] 2 each PO BEDTIME 03/04/25 Albuterol Sulfate [Proair Respiclick] 2 puff IH QIDP PRN 03/04/25 Allopurinol 300 mg PO DAILY 03/04/25 Amiodarone HCl [Cordarone*] 200 mg PO DAILY 03/04/25 Aspirin 81 mg PO DAILY 03/04/25 Atorvastatin Calcium [Lipitor] 40 mg PO BEDTIME 03/04/25 Colchicine [Colcrys *] 0.6 mg PO DAILYPRN PRN 03/04/25 Cyanocobalamin [Vitamin B-12*] 1,000 mcg PO DAILY 03/04/25 Dapagliflozin Propanediol [Farxiga] 5 mg PO DAILY 03/04/25 Dutasteride [Avodart*] 0.5 mg PO DAILY 03/04/25 Furosemide [Lasix*] 20 mg PO DAILY 03/04/25 Glucosamine/MSM/Chrond/D3/Bosw [Uepcwruxgcz-Mevblx-Zka D3 Cplt] 1 each PO BEDTIME 03/04/25 Immune N 1 cap PO BEDTIME 03/04/25 Ipratropium/Albuterol Sulfate [Iprat-Albut 0.5-3(2.5) mg/3 ml] 3 ml IH QIDP PRN 03/04/25 Metoprolol Tartrate [Lopressor*] 25 mg PO DAILY 03/04/25 Mitochondrial Energy Boost 1 cap PO BEDTIME 03/04/25 Mv-Mn/Lutein/Zeax/Bilber/Hb277 [Macular Health Formula Capsule] 1 each PO DAILY 03/04/25 Nexabiotic 1 cap PO DAILY 03/04/25 Omeprazole [Prilosec] 40 mg PO DAILY 03/04/25 Spironolactone [Aldactone*] 25 mg PO DAILY 03/04/25 Tamsulosin HCl 0.4 mg PO BEDTIME 03/04/25 Turmeric Root Extract [Turmeric Curcumin] 500 mg PO BEDTIME 03/04/25 Umeclidinium Brm/Vilanterol Tr [Anoro Ellipta 62.5-25 Mcg INH] 62.5 mcg IH DAILY 03/04/25 Zinc Gluconate [Zinc] 1 tab PO BEDTIME 03/04/25 Amlodipine Besylate 5 mg PO DAILY 04/05/25 Sertraline [Zoloft*] 25 mg PO DAILY #30 tab 04/08/25 Gabapentin 300 mg PO BEDTIME 07/16/25 Omeprazole [Prilosec] 40 mg PO DAILY 07/16/25 cloNIDine HCL [Catapres*] 0.3 mg PO DAILY 07/16/25 - Past Medical/Surgical History Diabetic: Yes -: Hyperlipidemia -: HTN -: COPD -: Colon Ca -: DM -: gerd -: neuropathy -: anemia, -: pancreatitis -: chf -: Colon Resection -: Lobotomy Left Upper Lung -: valve replaced,11/16 -: watchman 04/16 - Family History Mother Notes: Pancreatic [place] Father Notes: Heart Failure Brother Notes: liver failure Sister Medical History: Diabetes Notes: ovarian ca - Social History Smoking Status: Unknown if ever smoked Alcohol use: Yes CD- Drugs: No Caffeine use: Yes Place of Residence: Home Review of Systems 10-point ROS is otherwise unremarkable Physical Examination Temp Pulse Resp BP Pulse Ox 97.6 F 81 26 H 129/68 95 07/16/25 08:00 07/16/25 11:00 07/16/25 11:00 07/16/25 11:00 07/16/25 11:00 General: Alert, In no apparent distress HEENT: Atraumatic, PERRLA, Mucous membr. moist/pink, EOMI, Sclerae nonicteric Neck: Supple, 2+ carotid pulse no bruit, No LAD, Without JVD or thyroid abnormality Respiratory: Clear to auscultation bilaterally, Normal air movement Cardiovascular: Regular rate/rhythm, Normal S1 S2, Edema Gastrointestinal: Normal bowel sounds, No tenderness Musculoskeletal: No tenderness Integumentary: No rashes Neurological: Normal gait, Normal speech, Normal tone, Normal affect Lymphatics: No axilla or inguinal lymphadenopathy Laboratory Data (last 24 hrs) 07/16/25 07/16/25 07/16/25 00:28 00:28 00:28 WBC 16.90 H Hgb 8.6 L Hct 27.3 L Plt Count 438 H PT 13.6 H INR 1.21 Sodium 135 L Potassium 3.4 L BUN 23 H Creatinine 1.13 Glucose 345 H Magnesium 2.0 Total Bilirubin 0.4 AST 11 L ALT 15 L Alkaline Phosphatase 117 - Problems (1) Acute on chronic diastolic heart failure Current Visit: No Status: Acute Plan: continue lasix 40 mg IV BID continue aldactone 25 mg daily continue lopressor 25 mg po BID Continue to monitor input and output and electrolytes. patient had an echo done recently at office. (2) CAD (coronary artery disease) Current Visit: No Status: Acute Plan: patient with known CAD. mild leak in troponin that is down trending continue ASA 81 mg daily start Plavix 75 mg daily (3) History of transcatheter aortic valve implantation (ROGERS) Current Visit: No Status: Acute Plan: Patient had a recent echo at office that shown normal functioning bioprosthetic AV. (4) Atrial fibrillation Current Visit: No Status: Chronic Plan: s/p watchman continue Amiodarone 200 mg daily continue ASA 81 mg daily
[2025-07-16] MEDS: ROFLUMILAST 500 MCG TABLET PO SCH (12:08)
--- NOTE | 2025-07-16 12:13 | P.CNS ---
Date of Consult: 07/16/25 Reason for Consult: COPD exacerbation non-STEMI Chief Complaint: Shortness of breath recent fall History of Present Illness: Patient is 75 years of age significant history of cardiac problems Patient with PMH of diastolic heart failure, s/p ROGERS, AF s/p Watchman, CAD, He admitted with a non-STEMI he has terminal COPD compliant with his bronchodilators at home patient uses Breo has become progressively worse over the past year become more more debilitated has home oxygen lower extremity edema recent fall chest congestion Allergies codeine [Codeine] Adverse Reaction (Intermediate, Verified 08/09/24 08:24) Itching hydrocodone bitartrate [From Vicodin] Adverse Reaction (Intermediate, Verified 08/09/24 08:24) Hallucination hydromorphone HCl [From Dilaudid] Adverse Reaction (Intermediate, Verified 08/09/24 08:24) Hallucination morphine Adverse Reaction (Intermediate, Verified 08/09/24 08:24) Hallucination Home Medications: Acetaminophen/Diphenhydramine [Tylenol Pm Exstr 500-25Mg Cplt] 2 each PO BEDTIME 03/04/25 Albuterol Sulfate [Proair Respiclick] 2 puff IH QIDP PRN 03/04/25 Allopurinol 300 mg PO DAILY 03/04/25 Amiodarone HCl [Cordarone*] 200 mg PO DAILY 03/04/25 Aspirin 81 mg PO DAILY 03/04/25 Atorvastatin Calcium [Lipitor] 40 mg PO BEDTIME 03/04/25 Colchicine [Colcrys *] 0.6 mg PO DAILYPRN PRN 03/04/25 Cyanocobalamin [Vitamin B-12*] 1,000 mcg PO DAILY 03/04/25 Dapagliflozin Propanediol [Farxiga] 5 mg PO DAILY 03/04/25 Dutasteride [Avodart*] 0.5 mg PO DAILY 03/04/25 Furosemide [Lasix*] 20 mg PO DAILY 03/04/25 Glucosamine/MSM/Chrond/D3/Bosw [Okfotrfrxid-Vxcdyo-Gxm D3 Cplt] 1 each PO BEDTIME 03/04/25 Immune N 1 cap PO BEDTIME 03/04/25 Ipratropium/Albuterol Sulfate [Iprat-Albut 0.5-3(2.5) mg/3 ml] 3 ml IH QIDP PRN 03/04/25 Metoprolol Tartrate [Lopressor*] 25 mg PO DAILY 03/04/25 Mitochondrial Energy Boost 1 cap PO BEDTIME 03/04/25 Mv-Mn/Lutein/Zeax/Bilber/Hb277 [Macular Health Formula Capsule] 1 each PO DAILY 03/04/25 Nexabiotic 1 cap PO DAILY 03/04/25 Omeprazole [Prilosec] 40 mg PO DAILY 03/04/25 Spironolactone [Aldactone*] 25 mg PO DAILY 03/04/25 Tamsulosin HCl 0.4 mg PO BEDTIME 03/04/25 Turmeric Root Extract [Turmeric Curcumin] 500 mg PO BEDTIME 03/04/25 Umeclidinium Brm/Vilanterol Tr [Anoro Ellipta 62.5-25 Mcg INH] 62.5 mcg IH DAILY 03/04/25 Zinc Gluconate [Zinc] 1 tab PO BEDTIME 03/04/25 Amlodipine Besylate 5 mg PO DAILY 04/05/25 Sertraline [Zoloft*] 25 mg PO DAILY #30 tab 04/08/25 Gabapentin 300 mg PO BEDTIME 07/16/25 Omeprazole [Prilosec] 40 mg PO DAILY 07/16/25 cloNIDine HCL [Catapres*] 0.3 mg PO DAILY 07/16/25 - Past Medical/Surgical History Diabetic: Yes -: Hyperlipidemia -: HTN -: COPD -: Colon Ca -: DM -: gerd -: neuropathy -: anemia, -: pancreatitis -: chf -: Colon Resection -: Lobotomy Left Upper Lung -: valve replaced,11/16 -: watchman 04/16 - Family History Mother Notes: Pancreatic [place] Father Notes: Heart Failure Brother Notes: liver failure Sister Medical History: Diabetes Notes: ovarian ca - Social History Smoking Status: Unknown if ever smoked Alcohol use: Yes CD- Drugs: No Caffeine use: Yes Place of Residence: Home Review of Systems General: Weakness Respiratory: Cough, Shortness of Breath Cardiovascular: Edema Physical Examination Temp Pulse Resp BP Pulse Ox 97.6 F 81 26 H 129/68 95 07/16/25 08:00 07/16/25 11:00 07/16/25 11:00 07/16/25 11:00 07/16/25 11:00 General: Alert, Oriented x3 Respiratory: Clear to auscultation bilaterally, Diminished Cardiovascular: Normal S1 S2, Edema (2+ edema) Gastrointestinal: Normal bowel sounds, Soft and benign Laboratory Data (last 24 hrs) 07/16/25 07/16/25 07/16/25 00:28 00:28 00:28 WBC 16.90 H Hgb 8.6 L Hct 27.3 L Plt Count 438 H PT 13.6 H INR 1.21 Sodium 135 L Potassium 3.4 L BUN 23 H Creatinine 1.13 Glucose 345 H Magnesium 2.0 Total Bilirubin 0.4 AST 11 L ALT 15 L Alkaline Phosphatase 117 - Problems (1) COPD exacerbation Current Visit: Yes Status: Acute Plan: Patient is 75 years of age significant cardiac history 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
--- NOTE | 2025-07-16 13:03 | P.HP ---
Patient History Date of Service: 07/16/25 Reason for admission: Shortness of breath recent fall History of Present Illness: RANI IS AN END STAGE COPD PATIENT WITH VERY LOW ENERGY, DYSPNEA AT REST AT HOME NEEDING CONSTANT OXYGEN, HE ALSO HAS CHF WITH DIASTOLIC FAILURE, ASCVD AND HISTORY OF 3 CANCERS. HE COMES IN WITH DYSPNEA AND FALL AT HOME. I HAD ADVISED HOSPICE ON LAST ADMISSION FOR HOME. AND HE WERE NOT READY TO HEAR THAT. I HAD TOLD THEM THAT HE WILL BACK IN HOSPITAL SOON. NOW THEY ARE WILLING FOR HOSPICE AT HOME. THIS AM WHEN I SAW HIM, I ASKED ABOUT DNR STATUS. HE WAS TO TALK TO HIS . HE IS SHORT OF BREATH AT REST. Allergies codeine [Codeine] Adverse Reaction (Intermediate, Verified 08/09/24 08:24) Itching hydrocodone bitartrate [From Vicodin] Adverse Reaction (Intermediate, Verified 08/09/24 08:24) Hallucination hydromorphone HCl [From Dilaudid] Adverse Reaction (Intermediate, Verified 08/09/24 08:24) Hallucination morphine Adverse Reaction (Intermediate, Verified 08/09/24 08:24) Hallucination Home Medications: Acetaminophen/Diphenhydramine [Tylenol Pm Exstr 500-25Mg Cplt] 2 each PO BEDTIME 03/04/25 Albuterol Sulfate [Proair Respiclick] 2 puff IH QIDP PRN 03/04/25 Allopurinol 300 mg PO DAILY 03/04/25 Amiodarone HCl [Cordarone*] 200 mg PO DAILY 03/04/25 Aspirin 81 mg PO DAILY 03/04/25 Atorvastatin Calcium [Lipitor] 40 mg PO BEDTIME 03/04/25 Colchicine [Colcrys *] 0.6 mg PO DAILYPRN PRN 03/04/25 Cyanocobalamin [Vitamin B-12*] 1,000 mcg PO DAILY 03/04/25 Dapagliflozin Propanediol [Farxiga] 5 mg PO DAILY 03/04/25 Dutasteride [Avodart*] 0.5 mg PO DAILY 03/04/25 Furosemide [Lasix*] 20 mg PO DAILY 03/04/25 Glucosamine/MSM/Chrond/D3/Bosw [Mdhncrmxats-Ovyixr-Gje D3 Cplt] 1 each PO BEDTIME 03/04/25 Immune N 1 cap PO BEDTIME 03/04/25 Ipratropium/Albuterol Sulfate [Iprat-Albut 0.5-3(2.5) mg/3 ml] 3 ml IH QIDP PRN 03/04/25 Metoprolol Tartrate [Lopressor*] 25 mg PO DAILY 03/04/25 Mitochondrial Energy Boost 1 cap PO BEDTIME 03/04/25 Mv-Mn/Lutein/Zeax/Bilber/Hb277 [Macular Health Formula Capsule] 1 each PO DAILY 03/04/25 Nexabiotic 1 cap PO DAILY 03/04/25 Omeprazole [Prilosec] 40 mg PO DAILY 03/04/25 Spironolactone [Aldactone*] 25 mg PO DAILY 03/04/25 Tamsulosin HCl 0.4 mg PO BEDTIME 03/04/25 Turmeric Root Extract [Turmeric Curcumin] 500 mg PO BEDTIME 03/04/25 Umeclidinium Brm/Vilanterol Tr [Anoro Ellipta 62.5-25 Mcg INH] 62.5 mcg IH DAILY 03/04/25 Zinc Gluconate [Zinc] 1 tab PO BEDTIME 03/04/25 Amlodipine Besylate 5 mg PO DAILY 04/05/25 Sertraline [Zoloft*] 25 mg PO DAILY #30 tab 04/08/25 Gabapentin 300 mg PO BEDTIME 07/16/25 Omeprazole [Prilosec] 40 mg PO DAILY 07/16/25 cloNIDine HCL [Catapres*] 0.3 mg PO DAILY 07/16/25 - Past Medical/Surgical History Has patient received pneumonia vaccine in the past: Yes Diabetic: Yes -: Hyperlipidemia -: HTN -: COPD -: Colon Ca -: DM -: gerd -: neuropathy -: anemia, -: pancreatitis -: chf -: Colon Resection -: Lobotomy Left Upper Lung -: valve replaced,11/16 -: watchman 04/16 - Family History Mother Notes: Pancreatic CA Father Notes: Heart Failure Brother Notes: liver failure Sister -: Diabetes Notes: ovarian ca - Social History Smoking Status: Former smoker Alcohol use: Yes CD- Drugs: No Caffeine use: Yes Place of Residence: Home Review of Systems 10-point ROS is otherwise unremarkable General: Weakness, Malaise, As per HPI Physical Examination - Vital Signs Temperature: 97.6 F Blood Pressure: 142/71 Pulse: 83 Respirations: 20 Pulse Ox (%): 96 - Physical Exam General: Oriented x3, Moderate distress HEENT: Atraumatic, PERRLA, Mucous membr. moist/pink, EOMI, Sclerae nonicteric Neck: Supple, 2+ carotid pulse no bruit, No LAD, Without JVD or thyroid abnormality Respiratory: Diminished, Crackles/rales (BILAT.), Inspiratory wheezes Cardiovascular: Regular rate/rhythm, Normal S1 S2 Gastrointestinal: Normal bowel sounds, No tenderness Musculoskeletal: No tenderness Integumentary: No rashes Neurological: Normal gait, Normal speech, Normal strength at 5/5 x4 extr, Normal tone, Normal affect Lymphatics: No axilla or inguinal lymphadenopathy - Studies Laboratory Data (last 24 hrs) 07/16/25 07/16/25 07/16/25 00:28 00:28 00:28 WBC 16.90 H Hgb 8.6 L Hct 27.3 L Plt Count 438 H PT 13.6 H INR 1.21 Sodium 135 L Potassium 3.4 L BUN 23 H Creatinine 1.13 Glucose 345 H Magnesium 2.0 Total Bilirubin 0.4 AST 11 L ALT 15 L Alkaline Phosphatase 117 Assessment and Plan - Problems (Diagnosis) (1) COPD exacerbation Current Visit: Yes Status: Acute Plan: SEVERE CONT STERIODS, NEBS ABX. FAMILY CALLED HOSPICE AND THEY WANTED TO BE ADMITTED AT HOME. (2) Acute on chronic diastolic heart failure Current Visit: No Status: Chronic Plan: DIURESIS TOLERATED NO NUMBER OF MEDS ARE GOING TO IMPROVE CONDITION. (3) Bacterial pneumonia Current Visit: No Status: Acute Plan: IV CEFEPIME AND VANCOMYCIN. HE KNOWS DR ODONNELL. (4) Acute and chronic respiratory failure Current Visit: Yes Status: Acute Plan: ABOVE TERMINAL. COPD WITH CHF ARE THE REASONS. - Advance Directives Does patient have a Living Will: Yes Does patient have a Durable POA for Healthcare: Yes
[2025-07-16] MEDS: ARFORMOTEROL TARTRATE 15 MCG/2 ML VIAL.NEB NEB SCH (13:10)
[2025-07-16] MEDS: IPRATROPIUM BROM 0.5MG/2.5ML NEB SCH (13:15)
[2025-07-16] MEDS ORDERED: FUROSEMIDE 20 MG/ 2ML VIAL IV SCH (14:00)
[2025-07-16] MEDS ORDERED: VANCOMYCIN 1 GM in NA CHLORIDE 0.9% 250 ML IVPB SCH (15:00)
[2025-07-16] MEDS: FUROSEMIDE 40 MG/4 ML VIAL IV SCH (16:53)
[2025-07-16] MEDS: TAMSULOSIN 0.4 MG SR CAP PO SCH (20:18)
[2025-07-16] MEDS: ATORVASTATIN 40 MG TAB PO SCH (20:19)
[2025-07-16] MEDS: GABAPENTIN 300 MG CAP PO SCH (20:19)
[2025-07-17] MEDS ORDERED: VANCOMYCIN 1.5 GM in NA CHLORIDE 0.9% 500 ML IVPB SCH (04:00)
[2025-07-17 09:12] LABS: Blood O2 Saturation 96.5 % (92.0-98.5)
[2025-07-17 09:14] LABS: Blood Gas Oxyhemoglobin 94.9 % (94.0-97.0)
[2025-07-17 09:15] LABS: Arterial Blood Carboxyhemoglob 0.5 % (0.0-1.5); Blood Gas Inspired Oxygen 36.0 %
--- NOTE | 2025-07-17 11:26 | P.PN ---
Subjective Date of Service: 07/17/25 Chief Complaint: Shortness of breath recent fall Subjective: No new changes, No C/O voiced, Tolerating diet Review of Systems 10-point ROS is otherwise unremarkable Physical Examination - Vital Signs Temperature: 98.7 F Blood Pressure: 103/74 Pulse: 75 Respirations: 19 Pulse Ox (%): 95 - Physical Exam General: Alert, In no apparent distress HEENT: Atraumatic, PERRLA, EOMI Neck: Supple, JVD not distended Respiratory: Clear to auscultation bilaterally, Normal air movement Cardiovascular: Regular rate/rhythm, Normal S1 S2 Gastrointestinal: Normal bowel sounds, No tenderness Musculoskeletal: No tenderness Integumentary: No rashes Neurological: Normal speech, Normal tone, Normal affect Lymphatics: No axilla or inguinal lymphadenopathy - Studies Medications List Reviewed: Yes Assessment And Plan - Current Problems (Diagnosis) (1) Acute on chronic diastolic heart failure Current Visit: No Status: Chronic Plan: continue lasix 40 mg IV BID, then switch to lasix 40 mg daily continue aldactone 25 mg daily continue lopressor 25 mg po BID Continue to monitor input and output and electrolytes. patient had an echo done recently at office. (2) CAD (coronary artery disease) Current Visit: No Status: Acute Plan: patient with known CAD. mild leak in troponin that is down trending continue ASA 81 mg daily start Plavix 75 mg daily (3) History of transcatheter aortic valve implantation (ROGERS) Current Visit: No Status: Acute Plan: Patient had a recent echo at office that shown normal functioning bioprosthetic AV. (4) Atrial fibrillation Current Visit: No Status: Chronic Plan: s/p watchman continue Amiodarone 200 mg daily continue ASA 81 mg daily
--- NOTE | 2025-07-17 12:58 | P.PN ---
Subjective Date of Service: 07/17/25 Chief Complaint: Shortness of breath recent fall Subjective: No new changes HE IS GENERALLY WEAK, MORE LETHARGIC, GRADUAL WORSE. I WILL CALL TODAY. Review of Systems 10-point ROS is otherwise unremarkable General: As per HPI Physical Examination - Vital Signs Temperature: 98.7 F Blood Pressure: 103/74 Pulse: 75 Respirations: 19 Pulse Ox (%): 95 - Physical Exam General: Moderate distress, Other (LETHARGIC) HEENT: Atraumatic, PERRLA, EOMI Neck: Supple, JVD not distended Respiratory: Diminished, Crackles/rales Cardiovascular: Regular rate/rhythm, Normal S1 S2 Gastrointestinal: Normal bowel sounds, No tenderness Musculoskeletal: No tenderness Integumentary: No rashes Neurological: Normal speech, Normal tone, Normal affect Lymphatics: No axilla or inguinal lymphadenopathy - Studies Medications List Reviewed: Yes Assessment And Plan - Current Problems (Diagnosis) (1) COPD exacerbation Current Visit: Yes Status: Acute Plan: SEVERE CONT STERIODS, NEBS ABX. FAMILY CALLED HOSPICE AND THEY WANTED TO BE ADMITTED AT HOME. HE IS GOING WITH WHAT WANTS. DNR IS ADVISED. PROGNOSIS IS POOR. THERE IS NOT MUCH CAN BE DONE WITH SEVERE COPD WITH RESPIRATORY FAILURE. (2) Acute on chronic diastolic heart failure Current Visit: No Status: Chronic Plan: DIURESIS TOLERATED NO NUMBER OF MEDS ARE GOING TO IMPROVE CONDITION. (3) Bacterial pneumonia Current Visit: No Status: Acute Plan: IV CEFEPIME AND VANCOMYCIN. HE KNOWS DR ODONNELL. (4) Acute and chronic respiratory failure Current Visit: Yes Status: Acute Plan: ABOVE TERMINAL. COPD WITH CHF ARE THE REASONS.
[2025-07-17 13:22] LABS: Absolute Lymphocytes (CBC) 0.3 K/uL (0.7-4.9); Hematocrit 26.6 % (39.6-49.0); Hemoglobin 8.5 g/dL (13.6-17.9); MCH 21.6 pg (27.0-35.0); MCHC 31.9 g/dL (32.0-36.0); MCV 67.7 fL (80-100); MPV 7.0 fL (7.6-11.3); Nucleated RBC Absolute Count 0.0 (0-0); Nucleated Red Blood Cells % 0.0 % (0-0); RBC Red Blood Cell Count 3.93 M/uL (4.33-5.43); White Blood Count 9.60 thou/uL (4.3-10.9)
[2025-07-17 13:39] LABS: Anion Gap 9.3 mEq/L (5.0-15.0); BUN Blood Urea Nitrogen 15.0 mg/dL (7-18); Glucose Level 279.0 mg/dL (74-106); Potassium 3.3 mEq/L (3.5-5.1)
[2025-07-17] MEDS: FUROSEMIDE 40 MG/4 ML VIAL IV SCH (16:21)
[2025-07-17 16:46] LABS: Ferritin 75.9 ng/mL (26-388); Iron 10.0 ug/dL (65-175); Transferrin 134.0 mg/dL (200-360)
[2025-07-18 09:57] VITALS: O2SAT 94
[2025-07-18 13:26] VITALS: BP 104/61; TEMP 98.3
--- NOTE | 2025-07-29 17:21 | P.DS ---
Admission Date: 07/16/25 Discharge Date: 07/29/25 Disposition: HOSPICE-HOME Discharge Condition: SERIOUS Reason for Admission: Shortness of breath recent fall - Problems (1) COPD exacerbation Status: Acute (2) Acute on chronic diastolic heart failure Status: Chronic (3) Bacterial pneumonia Status: Acute (4) Acute and chronic respiratory failure Status: Acute Brief History of Present Illness: RANI IS AN END STAGE COPD PATIENT WITH VERY LOW ENERGY, DYSPNEA AT REST AT HOME NEEDING CONSTANT OXYGEN, HE ALSO HAS CHF WITH DIASTOLIC FAILURE, ASCVD AND HISTORY OF 3 CANCERS. HE COMES IN WITH DYSPNEA AND FALL AT HOME. I HAD ADVISED HOSPICE ON LAST ADMISSION FOR HOME. AND HE WERE NOT READY TO HEAR THAT. I HAD TOLD THEM THAT HE WILL BACK IN HOSPITAL SOON. NOW THEY ARE WILLING FOR HOSPICE AT HOME. THIS AM WHEN I SAW HIM, I ASKED ABOUT DNR STATUS. HE WAS TO TALK TO HIS . HE IS SHORT OF BREATH AT REST. RANI AGREED FOR HOSPICE AFTER I TALKED TO . HE IS STABLE TO GO HOME ON HOSPICE ON OXYGEN AT 6 LT NC. HE HAS VERY POOR WALKING TOLERANCE NOW. HE GET DYSPNEA WITH A FEW STEPS ONLY. Vital Signs/Physical Exam: Temp Pulse Resp BP Pulse Ox 98.3 F 100 H 18 104/61 94 07/18/25 12:00 07/18/25 12:00 07/18/25 12:00 07/18/25 12:00 07/18/25 12:00 Laboratory Data at Discharge: WBC 9.60 thou/uL (4.3-10.9) 07/17/25 13:10 Hgb 8.5 g/dL (13.6-17.9) L 07/17/25 13:10 Hct 26.6 % (39.6-49.0) L 07/17/25 13:10 Plt Count 330 thou/uL (152-406) 07/17/25 13:10 PT 13.6 SECONDS (10-13.0) H 07/16/25 00:28 INR 1.21 07/16/25 00:28 Sodium 135 mEq/L (136-145) L 07/17/25 13:10 Potassium 3.3 mEq/L (3.5-5.1) L 07/17/25 13:10 BUN 15 mg/dL (7-18) 07/17/25 13:10 Creatinine 0.96 mg/dL (0.70-1.30) 07/17/25 13:10 Glucose 279 mg/dL (74-106) H 07/17/25 13:10 Magnesium 2.0 mg/dL (1.6-2.4) 07/16/25 00:28 Total Bilirubin 0.4 mg/dL (0.2-1.0) 07/16/25 00:28 AST 11 U/L (15-37) L 07/16/25 00:28 ALT 15 U/L (16-61) L 07/16/25 00:28 Alkaline Phosphatase 117 U/L (45-117) 07/16/25 00:28 Home Medications: Acetaminophen/Diphenhydramine [Tylenol Pm Exstr 500-25Mg Cplt] 2 each PO BEDTIME 03/04/25 Albuterol Sulfate [Proair Respiclick] 2 puff IH QIDP PRN 03/04/25 Allopurinol 300 mg PO DAILY 03/04/25 Amiodarone HCl [Cordarone*] 200 mg PO DAILY 03/04/25 Aspirin 81 mg PO DAILY 03/04/25 Atorvastatin Calcium [Lipitor] 40 mg PO BEDTIME 03/04/25 Colchicine [Colcrys *] 0.6 mg PO DAILYPRN PRN 03/04/25 Cyanocobalamin [Vitamin B-12*] 1,000 mcg PO DAILY 03/04/25 Dapagliflozin Propanediol [Farxiga] 5 mg PO DAILY 03/04/25 Dutasteride [Avodart*] 0.5 mg PO DAILY 03/04/25 Furosemide [Lasix*] 20 mg PO DAILY 03/04/25 Glucosamine/MSM/Chrond/D3/Bosw [Vjfblaqkiga-Mccnhf-Hmv D3 Cplt] 1 each PO BEDTIME 03/04/25 Immune N 1 cap PO BEDTIME 03/04/25 Ipratropium/Albuterol Sulfate [Iprat-Albut 0.5-3(2.5) mg/3 ml] 3 ml IH QIDP PRN 03/04/25 Metoprolol Tartrate [Lopressor*] 25 mg PO DAILY 03/04/25 Mitochondrial Energy Boost 1 cap PO BEDTIME 03/04/25 Mv-Mn/Lutein/Zeax/Bilber/Hb277 [Macular Health Formula Capsule] 1 each PO DAILY 03/04/25 Nexabiotic 1 cap PO DAILY 03/04/25 Omeprazole [Prilosec] 40 mg PO DAILY 03/04/25 Spironolactone [Aldactone*] 25 mg PO DAILY 03/04/25 Tamsulosin HCl 0.4 mg PO BEDTIME 03/04/25 Turmeric Root Extract [Turmeric Curcumin] 500 mg PO BEDTIME 03/04/25 Umeclidinium Brm/Vilanterol Tr [Anoro Ellipta 62.5-25 Mcg INH] 62.5 mcg IH DAILY 03/04/25 Zinc Gluconate [Zinc] 1 tab PO BEDTIME 03/04/25 Amlodipine Besylate 5 mg PO DAILY 04/05/25 Sertraline [Zoloft*] 25 mg PO DAILY #30 tab 04/08/25 Gabapentin 300 mg PO BEDTIME 07/16/25 Omeprazole [Prilosec] 40 mg PO DAILY 07/16/25 cloNIDine HCL [Catapres*] 0.3 mg PO DAILY 07/16/25 Followup: Yung Allen MD [Primary Care Provider] -
== END 2025-07-18 14:52 | disposition hospice, home (50) | DRG 189 ==
LOC: ER 00:08 → 3RD-ICU 01:58 → 4TH 07-17 11:55
PROVIDERS: ADMIT Internal Medicine; ATTEND Internal Medicine
PROC: 4A033R1 Measurement of Arterial Saturation, Peripheral, Percutaneous Approach (ICD-10-PCS; principal; 2025-07-16)
PROC: 5A09457 Assistance with Respiratory Ventilation, 24-96 Consecutive Hours, Continuous Positive Airway Pressure (ICD-10-PCS; 2025-07-16)
DX: J96.00 Acute respiratory failure, unspecified whether with hypoxia or hypercapnia (principal); I50.33 Acute on chronic diastolic (congestive) heart failure; I21.4 Non-ST elevation (NSTEMI) myocardial infarction; J15.9 Unspecified bacterial pneumonia; J44.0 Chronic obstructive pulmonary disease with (acute) lower respiratory infection; I48.20 Chronic atrial fibrillation, unspecified; J44.1 Chronic obstructive pulmonary disease with (acute) exacerbation; I11.0 Hypertensive heart disease with heart failure; E78.5 Hyperlipidemia, unspecified; K86.9 Disease of pancreas, unspecified; E11.40 Type 2 diabetes mellitus with diabetic neuropathy, unspecified; K21.9 Gastro-esophageal reflux disease without esophagitis; I25.10 Atherosclerotic heart disease of native coronary artery without angina pectoris; Z85.46 Personal history of malignant neoplasm of prostate; Z88.5 Allergy status to narcotic agent; Z90.49 Acquired absence of other specified parts of digestive tract; Z95.2 Presence of prosthetic heart valve; Z90.2 Acquired absence of lung [part of]; Z79.82 Long term (current) use of aspirin; Z79.899 Other long term (current) drug therapy; Z85.038 Personal history of other malignant neoplasm of large intestine; Z51.5 Encounter for palliative care; Z87.891 Personal history of nicotine dependence; Z11.52 Encounter for screening for COVID-19
CPT/HCPCS: 36415; 36600; 71045; 80048; 80076; 82728; 82805; 82947; 83540; 83605; 83735; 83880; 84466; 84484; 85025; 85610; 87040; 87070; 87077; 87186; 87205; 87428; 93005; 94640; 94660; 94668; 99285; J0692; J1815; J1938; J3373; J7040; J7050; J7605; J7644